=== PATIENT | female | born 1940 | race Caucasian/White ===

== ENCOUNTER 2016-11-30 18:11 | Emergency (ER) | payer MEDICARE ==
[~2016-11-30] VITALS: Ht 162.6 cm; Wt 79.0 kg
[~2016-11-30 18:11] MED LIST: ASPI325T PO; CALC-137 PO; CARV3.125 PO; CLOP75 PO; CYCL5TAB PO; ERYT250T13 PO; FOLI1 PO; FURO1TAB93 PO; LANTUS2P SC; LANTUSP SQ; LORA0.5T PO; METH2.5 PO; NITR.4; NOVOLOGP2; PROM25SU8 PO; TRAM50TA PO; VITA100032 PO
[2016-11-30 18:21] VITALS: BP 131/78; PULSE 94; RESP 17; TEMP 98.1; O2SAT 99
[2016-11-30] MEDS ORDERED: METH2.5T PO (19:17)
[2016-11-30] MEDS ORDERED: CALC1TAB87 PO (19:17)
[2016-11-30] MEDS ORDERED: ASPI325T PO (19:17)
[2016-11-30] MEDS ORDERED: NITR0.1D T-DERMAL (19:17)
[2016-11-30] MEDS ORDERED: LORA-373 PO (19:17)
[2016-11-30] MEDS ORDERED: ERYT250T13 PO (19:17)
[2016-11-30] MEDS ORDERED: LANTUS2P SQ (19:17)
[2016-11-30] MEDS ORDERED: FOLI1TAB4 PO (19:17)
[2016-11-30] MEDS ORDERED: NOVOLOGP2 SQ (19:17)
[2016-11-30] MEDS ORDERED: CLOP75TA PO (19:17)
[2016-11-30] MEDS ORDERED: CARV3.125 PO (19:17)
[2016-11-30] MEDS ORDERED: FURO40TA PO (19:17)
--- NOTE | 2016-11-30 19:43 | RADHPO ---
EXAM DATE/TIME: 11/30/2016 18:42 [facility] COMPARISON: No previous studies available for comparison. INDICATIONS : Right hip pain after fall. MEDICAL HISTORY : Rheumatoid arthritis. Osteoporosis. Hypercholesterolemia. HTN, CHF, COPD, Asthma, Sleep apnea, Ga stroparesis, Diverticulitis, Hiatal hernia, GERD, Rectocele, Fibromyalgia, Spinal stenosis, Diabetes SURGICAL HISTORY : Tonsillectomy. Coronary artery stent. Appendectomy. Cholecystectomy, Hysterectomy, Right hip surgery ENCOUNTER: Initial ACUITY: 1 day PAIN SCORE: 7/10 LOCATION: Right pelvis FINDINGS: Examination of the right hip was performed with AP Pelvis. There is a remote right hip fracture with healing. No acute fracture identified. 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 Osteopenia. CONCLUSION: 1. No acute bony abnormalities. Remote healed right hip fracture. Arnav Andrew MD on November 30, 2016 at 19:39 Board Certified Radiologist. This report was verified electronically.
--- NOTE | 2016-11-30 19:46 | RADHPO ---
EXAM DATE/TIME: 11/30/2016 18:53 [facility] COMPARISON: No previous studies available for comparison. INDICATIONS : Right medial knee pain after fall. MEDICAL HISTORY : Rheumatoid arthritis. Hypercholesterolemia. Osteoporosis. HTN, CHF, COPD, Asthma, Sleep apnea, Ga stroparesis, Diverticulitis, Hiatal hernia, GERD, Rectocelle, Fibromyalgia, Spinal stenosis, Diabetes SURGICAL HISTORY : Tonsillectomy. Coronary artery stent. Appendectomy. Cholecystectomy, Hysterectomy, Right hip surgery ENCOUNTER: Initial ACUITY: 1 day PAIN SCORE: 7/10 LOCATION: Right medial knee FINDINGS: Four view examination of the right knee demonstrates no evidence of fracture or dislocation. Bony mi neralization is decreased. The articular surfaces are intact. The suprapatellar soft tissues have a normal configuration. CONCLUSION: 1. Mild osteoarthritis of the right knee. No acute bony abnormalities. Arnav Andrew MD on November 30, 2016 at 19:42 Board Certified Radiologist. This report was verified electronically.
--- NOTE | 2016-11-30 20:38 | PD ---
HPI Chief Complaint: Fall Time Seen by Provider: 18:24 Travel History International Travel<30 days: No Contact w/Intl Traveler<30days: No Traveled to known affect area: No History of Present Illness HPI Patient is an 76-year-old female who had a trip and fall at home over a dog gate. Patient states she was stepping over a dog gate tripped on it and fell landing on her right side. Patient states she has a complex history of surgery of her right hip wants to make sure it's checked out. Patient did receive 8 mg of morphine IV prior to arrival. Per EMS she did have some shortening of the right lower extremity. Patient denies any head neck back chest abdomen or pelvis trauma or pain. Patient states her left it up her left lower extremity as well as right upper extremity are nontender. She complains of pain in her right hip as well as her right knee which are fairly mild in nature. She has not tried to ambulate since the fall. PFSH Past Medical History Arthritis: Yes (RA) Asthma: Yes Autoimmune Disease: Yes (fibromyalgia) Blood Disorders: No Anxiety: Yes Depression: Yes Heart Rhythm Problems: No Cancer: No Cardiac Catheterization: Yes (Multiple Angioplasty last time X 6 stints-LAST CATH June) Cardiovascular Problems: Yes (STENTS, LOOP) High Cholesterol: Yes Chemotherapy: No Chest Pain: Yes Congestive Heart Failure: Yes COPD: Yes Cerebrovascular Accident: Yes Diabetes: Yes Patient Takes Glucophage: Yes Diminished Hearing: Yes ([place]) Diverticulitis: Yes Endocrine: No Fibromyalgia: Yes Gastrointestinal Disorders: Yes (GASTROPARESIS) GERD: Yes Glaucoma: No Genitourinary: No Headaches: Yes Hepatitis: No Hiatal Hernia: Yes Hypertension: Yes Immune Disorder: Yes (FIBROMALGIA\) Kidney Stones: No Musculoskeletal: Yes (osteoporosis,fibromyalgia,spinal stenosis) Neurologic: Yes (hemangioma, migraines) Psychiatric: No Reproductive: Yes Respiratory: Yes Myocardial Infarction: No Radiation Therapy: No Renal Failure: No Seizures: No Sickle Cell Disease: No Sleep Apnea: Yes Thyroid Disease: No Ulcer: No Tetanus Vaccination: > 5 Years Influenza Vaccination: Yes PNEUMOCCOCAL Vaccine (Year): 2007 Menopausal: Yes Past Surgical History Abdominal Surgery: Yes AICD: No Appendectomy: Yes Body Medical Devices: RIGHT SHOULDER SURGERY, NO JOINT REPLACEMENT. HIP REPLACEMENT REMOVED. Cardiac Surgery: Yes (CARDIAC CATH WITH STENTS) Cholecystectomy: Yes Coronary Artery Bypass Graft: No Coronary Stent: Yes (X2) Endocrine Surgery: No Genitourinary Surgery: Yes Gynecologic Surgery: Yes (HYSTERECTOMY) Hysterectomy: Yes Joint Replacement: Yes (RIGHT HIP/RIGHT KNEE) Neurologic Surgery: No Pacemaker: No Tonsillectomy: Yes Other Surgery: Yes (TONSILLECTOMY, APPENDECTOMY, HYSTERECTOMY, ROTATOR CUFF, GALLBLADDER, L HIP) Social History Alcohol Use: No Tobacco Use: No (QUIT 1989) Substance Use: No Allergies-Medications (Allergen,Severity, Reaction): Coded Allergies: Atarax (Verified Allergy, Severe, THROAT SWELLING, 11/30/16) Bactrim (Verified Allergy, Severe, RASH (SULFA), 11/30/16) Codeine (Verified Allergy, Severe, VOMITING, 11/30/16) Flagyl (Verified Allergy, Severe, NAUSEA/VOMITING, 11/30/16) Keflex (Verified Allergy, Severe, RASH, 11/30/16) Lexapro (Verified Allergy, Severe, 11/30/16) Lyrica (Verified Allergy, Severe, CARDIAC ARRYTHMIAS, 11/30/16) Penicillin (Verified Allergy, Severe, RASH, 11/30/16) Sulfa (Verified Allergy, Severe, RASH, 11/30/16) Tetanus Toxoid (Verified Allergy, Severe, Rash, 11/30/16) Iodide Tincture (Verified Adverse Reaction, Mild, Headache, 11/30/16) Reglan (Verified Adverse Reaction, Mild, Headache, 11/30/16) VOMITING Uncoded Allergies: SURGICAL STEEL (Allergy, Severe, 08/02/06) METALS (Allergy, Unknown, Swelling, 12/04/04) Reported Meds & Prescriptions Reported Meds & Active Scripts Active Ultram (Tramadol HCl) 50 Mg Tab 50 Mg PO Q6H PRN Reported Nitro-Dur Patch 24 HR (Nitroglycerin) 0.1 Mg/Hr Patch 0.1 Mg T-DERMAL DAILY Methotrexate 2.5 Mg Tab 150 Mg PO Q7D Lorazepam 0.5 Mg Tab 0.5 Mg PO HS PRN Lantus Inj (Insulin Glargine) 1,000 Unit/10 Ml Vial 50 Units SQ HS Novolog Inj (Insulin Aspart) 1,000 Unit/10 Ml Vial 0 SQ DIRECTED Sliding Scale as directed. Furosemide 40 Mg Tab 40 Mg PO BID Folate (Folic Acid) 1 Mg Tab 1 Mg PO DAILY Erythromycin Base 250 Mg Tab 250 Mg PO TIDAC PRN Clopidogrel (Clopidogrel Bisulfate) 75 Mg Tab 75 Mg PO HS Coreg (Carvedilol) 3.125 Mg Tab 3.125 Mg PO BID Calcium 600 with Vitamin D (Calcium Carbonate-Cholecalciferol) 600-400 mg-Unit Tab 1 Tab PO DAILY Aspirin 325 Mg Tab 325 Mg PO DAILY Review of Systems Except as stated in HPI: all other systems reviewed are Neg Physical Exam Narrative GENERAL: Well-developed well-nourished no apparent distress. SKIN: Warm and dry. HEAD: Normocephalic. EYES: No scleral icterus. No injection or drainage. NECK: Supple, trachea midline. No JVD or lymphadenopathy. CARDIOVASCULAR: Regular rate and rhythm without murmurs, gallops, or rubs. RESPIRATORY: Breath sounds equal bilaterally. No accessory muscle use. GASTROINTESTINAL: Abdomen soft, non-tender, nondistended. MUSCULOSKELETAL: No cyanosis, or edema. Upper extremities are atraumatic, no tenderness of her CT or L-spine. Pelvis is stable. Left hip normal left knee normal, left ankle normal. The right extremity is somewhat shorter than the left at the level of the hip. No obvious deformity or dislocation of the right hip she has full nontender range of motion of the right hip, no obvious swelling dislocation laxity limited range of motion of the right knee. Right ankle normal right foot normal. On her and sensory are intact distally in all 4 extremities. BACK: Nontender without obvious deformity. No CVA tenderness. Data Data Last Documented VS Vital Signs Date Time Temp Pulse Resp B/P Pulse Ox O2 Delivery O2 Flow Rate FiO2 11/30/16 20:51 88 16 128/74 99 11/30/16 18:21 98.1 Room Air Orders Hip, Uni(Ap&Lat) W Ap Pelvis (11/30/16 ) Knee, Complete (4vws) (11/30/16 ) [facility] Medical Decision Making Medical Screen Exam Complete: Yes Emergency Medical Condition: Yes Differential Diagnosis Fracture, contusion, strain, sprain. Narrative Course Patient is 76 year old female presents with right hip pain and right knee pain after t/f. Patient has history of multiple procedures on right hip. SHe is RLE shorter than LLE at baseline. Xray's negative. She ambulated in ED. Stable for discharge. Discussed fall prevention. Diagnosis Primary Impression: Contusion, hip Qualified Code: S70.01XA - Contusion of right hip, initial encounter Med/Other Pt SpecificInfo: Prescription(s) given Scripts Tramadol (Ultram)50 Mg Tab50 Mg PO Q6H PRN (PAIN) #12 TAB Ref 0 Prov:Thaddeus Grey MD 11/30/16 Disposition: 01 DISCHARGE HOME Condition: Stable Thaddeus Grey MD Nov 30, 2016 20:38
[2016-11-30] MEDS ORDERED: ULTR50TA5 PO (20:39)
[2016-11-30 20:51] VITALS: BP 128/74
[2017-01-09] MEDS ORDERED: LEVO.05 PO (09:11)
== END 2016-11-30 20:50 | disposition home or self-care (01) ==
LOC: PHEFT 18:11
DX: S70.01XA Contusion of right hip, initial encounter (principal); M06.9 Rheumatoid arthritis, unspecified; M79.7 Fibromyalgia; E78.00 Pure hypercholesterolemia, unspecified; I50.9 Heart failure, unspecified; J44.9 Chronic obstructive pulmonary disease, unspecified; E11.9 Type 2 diabetes mellitus without complications; Z86.73 Personal history of transient ischemic attack (TIA), and cerebral infarction without residual deficits; K21.9 Gastro-esophageal reflux disease without esophagitis; I10 Essential (primary) hypertension; M81.0 Age-related osteoporosis without current pathological fracture; W18.09XA Striking against other object with subsequent fall, initial encounter; Y99.8 Other external cause status
CPT/HCPCS: 73502; 73564; 99284

== ENCOUNTER → 2017-01-09 | Outpatient (CLI) | payer MEDICARE ==
[~2017-01-09] VITALS: Ht 162.6 cm; Wt 68.0 kg
[~2017-01-09] MED LIST changes: +BENA25TA3 PO; +BENZ1CAP8 PO; -CALC-137 PO; +CALC1TAB87 PO; +CIPR-9 PO; -CLOP75 PO; +CLOP75TA PO; +CYAN1TAB24 IJ; -CYCL5TAB PO; -FOLI1 PO; +FOLI1TAB4 PO; +FOLI5CAP PO; +FURO1TAB60 PO; -FURO1TAB93 PO; +FURO40TA PO; +HYDR-3533 PO; +INSU1INJ14 SQ; +INSULIN HUMAN REGULAR 1,000 UNITS/10 ML VIAL SQ PRN; +LACTATED RINGER'S 1000 ML IV SCH; -LANTUS2P SC; +LANTUS2P SQ; -LANTUSP SQ; +LEVO.05 PO; +LORA-373 PO; -LORA0.5T PO; +MACR100C2 PO; -METH2.5 PO; +METH2.5T PO; +METOPROLOL TARTRATE 25 MG TAB PO PRN; -NITR.4; +NITR0.1D T-DERMAL; +NITR100C4 PO; +NOVOINJ3 SQ; -NOVOLOGP2; +NOVOLOGP2 SQ; +ONABOTULINUMTOXINA INJ 100 UNITS/VIAL SCH; -PROM25SU8 PO; +PROM25TA5 PO; +PROPOFOL 200 MG/20 ML AMP IV ONE; +ROSU40 PO; +SODIUM CHLORID 0.9% 500 ML IV SCH; -TRAM50TA PO; +ULTR50TA5 PO; +VENTAER INH; -VITA100032 PO; +ZOFR4TAB3 SL
[2017-01-09 09:05] VITALS: BP 149/75; PULSE 85; RESP 18; TEMP 97.9; O2SAT 100
[2017-01-09 12:19] VITALS: BP 139/69; PULSE 74; RESP 16; TEMP 98.1; O2SAT 96
--- NOTE | 2017-01-09 22:43 | EKG ---
Date Performed: 01/09/2017 Time Performed: 08:33:31 PTAGE: 76 years EKG: Sinus rhythm RIGHT BUNDLE BRANCH BLOCK POSSIBLE ANTERIOR MYOCARDIAL INFARCTION , OF INDETERMINATE AGE ABNORMAL EC G PREVIOUS TRACING : 07/09/2014 20.53 DOCTOR: Klaus Silvestre Interpretating Date/Time 01/09/2017 22:41:30
== END ==
LOC: HEND 08:01
PROVIDERS: ATTEND Internal Medicine Gastroenterology
DX: K22.2 Esophageal obstruction (principal); K44.9 Diaphragmatic hernia without obstruction or gangrene; K29.50 Unspecified chronic gastritis without bleeding; D12.3 Benign neoplasm of transverse colon; D12.4 Benign neoplasm of descending colon; K57.32 Diverticulitis of large intestine without perforation or abscess without bleeding; K64.4 Residual hemorrhoidal skin tags; K64.8 Other hemorrhoids; R11.0 Nausea; R19.7 Diarrhea, unspecified; I13.0 Hypertensive heart and chronic kidney disease with heart failure and stage 1 through stage 4 chronic kidney disease, or unspecified chronic kidney disease; N18.2 Chronic kidney disease, stage 2 (mild); J45.909 Unspecified asthma, uncomplicated; R10.12 Left upper quadrant pain
CPT/HCPCS: 43239; 43248; 45380; 88305; 88312; 93005; 99156; 99157; C1769; J3010; J7120

== ENCOUNTER 2017-02-13 12:45 | Emergency (ER) | payer MEDICARE ==
[~2017-02-13] VITALS: Ht 162.6 cm; Wt 70.1 kg
[~2017-02-13 12:45] MED LIST changes: -BENA25TA3 PO; -BENZ1CAP8 PO; -CARV3.125 PO; -CIPR-9 PO; -CYAN1TAB24 IJ; -ERYT250T13 PO; -FOLI1TAB4 PO; -FOLI5CAP PO; -FURO1TAB60 PO; -HYDR-3533 PO; -INSU1INJ14 SQ; -INSULIN HUMAN REGULAR 1,000 UNITS/10 ML VIAL SQ PRN; -LACTATED RINGER'S 1000 ML IV SCH; -MACR100C2 PO; -METH2.5T PO; -METOPROLOL TARTRATE 25 MG TAB PO PRN; -NITR100C4 PO; -NOVOINJ3 SQ; -ONABOTULINUMTOXINA INJ 100 UNITS/VIAL SCH; -PROM25TA5 PO; -PROPOFOL 200 MG/20 ML AMP IV ONE; -ROSU40 PO; -SODIUM CHLORID 0.9% 500 ML IV SCH; -VENTAER INH; -ZOFR4TAB3 SL
[2017-02-13 12:52] VITALS: BP 149/73; PULSE 73; RESP 16; TEMP 97.7; O2SAT 97
[2017-02-13] MEDS ORDERED: SODIUM CHLORIDE 0.9% FLUSH 10 ML FLUSH IVF PRN (13:15)
--- NOTE | 2017-02-13 13:18 | PD ---
HPI Chief Complaint: Pain: Acute or Chronic Time Seen by Provider: 13:01 Travel History International Travel<30 days: No Contact w/Intl Traveler<30days: No Traveled to known affect area: No History of Present Illness HPI 76-year-old female presents with left leg pain and swelling that feels similar to when she had a blood clot in the 90s. She states she had 2 separate episodes with the first one leading to a blood clot in her lungs. She states she was on Coumadin with the first one but doesn't recall what she was on the second episode. She states that additionally she went to a [facility] this week and was prescribed Tessalon Perles for a dry cough and chest pressure but she says she doesn't feel like she's having a cold. She states they did a chest x- ray and it was okay. She states that she's having no other concurrent complaints. Quality is pressure. Severity is chest. 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 She had a stress test in September when she was at [facility] that she thinks was okay. She states she had a cardiac catheterization around that time she thinks that her blood vessels were on the edge of her needing a stent but given it was not fully blocked they did not put a stent. She states that she does have history of multiple stents. PFSH Past Medical History Hx Anticoagulant Therapy: Yes (PLAVIX AND 325MG. ASA) Arthritis: Yes (RA) Asthma: Yes Autoimmune Disease: Yes (fibromyalgia) Blood Disorders: No Anxiety: Yes Depression: Yes Heart Rhythm Problems: No Cancer: No Cardiac Catheterization: Yes (Multiple Angioplasty last time X 6 stints-LAST CATH June) Cardiovascular Problems: Yes (STENTS) High Cholesterol: Yes Chemotherapy: No Chest Pain: Yes Congestive Heart Failure: Yes COPD: Yes Cerebrovascular Accident: Yes (CVA) Diabetes: Yes Patient Takes Glucophage: No Diminished Hearing: Yes ([place]) Diverticulitis: Yes Endocrine: No Fibromyalgia: Yes Gastrointestinal Disorders: Yes (GASTROPARESIS) GERD: Yes Glaucoma: No Genitourinary: No Headaches: Yes Hepatitis: No Hiatal Hernia: Yes Hypertension: Yes Immune Disorder: Yes (FIBROMALGIA\RA) Kidney Stones: No Musculoskeletal: Yes (osteoporosis,fibromyalgia,spinal stenosis) Neurologic: Yes (hemangioma, migraines) Psychiatric: No Reproductive: Yes Respiratory: Yes Myocardial Infarction: No Radiation Therapy: No Renal Failure: No Seizures: No Sickle Cell Disease: No Sleep Apnea: Yes Thyroid Disease: Yes Ulcer: No PNEUMOCCOCAL Vaccine (Year): 2007 ?: Not Menopausal: Yes Past Surgical History Abdominal Surgery: Yes AICD: No Appendectomy: Yes Body Medical Devices: RIGHT SHOULDER SURGERY, NO JOINT REPLACEMENT. HIP REPLACEMENT REMOVED. Cardiac Surgery: Yes (CARDIAC CATH WITH STENTS) Cholecystectomy: Yes Coronary Artery Bypass Graft: No Coronary Stent: Yes (X2) Endocrine Surgery: No Genitourinary Surgery: Yes Gynecologic Surgery: Yes (HYSTERECTOMY) Hysterectomy: Yes Joint Replacement: Yes (RIGHT HIP/RIGHT KNEE) Neurologic Surgery: No Pacemaker: No Tonsillectomy: Yes Other Surgery: Yes (TONSILLECTOMY, APPENDECTOMY, HYSTERECTOMY, ROTATOR CUFF, GALLBLADDER, L HIP) Social History Alcohol Use: No Tobacco Use: No (QUIT 1989) Substance Use: No Allergies-Medications (Allergen,Severity, Reaction): Coded Allergies: Atarax (Verified Allergy, Severe, THROAT SWELLING, 02/13/17) Bactrim (Verified Allergy, Severe, RASH (SULFA), 02/13/17) Codeine (Verified Allergy, Severe, VOMITING, 02/13/17) Flagyl (Verified Allergy, Severe, NAUSEA/VOMITING, 02/13/17) Keflex (Verified Allergy, Severe, RASH, 02/13/17) Lexapro (Verified Allergy, Severe, 02/13/17) Lyrica (Verified Allergy, Severe, CARDIAC ARRYTHMIAS, 02/13/17) Penicillin (Verified Allergy, Severe, RASH, 02/13/17) Sulfa (Verified Allergy, Severe, RASH, 02/13/17) Tetanus Toxoid (Verified Allergy, Severe, Rash, 02/13/17) Iodide Tincture (Verified Adverse Reaction, Mild, Headache, 02/13/17) Reglan (Verified Adverse Reaction, Mild, Headache, 02/13/17) VOMITING Uncoded Allergies: SURGICAL STEEL (Allergy, Severe, 08/02/06) METALS (Allergy, Unknown, Swelling, 12/04/04) Reported Meds & Prescriptions Reported Meds & Active Scripts Active Ultram (Tramadol HCl) 50 Mg Tab 50 Mg PO Q6H PRN Reported Synthroid (Levothyroxine Sodium) 50 Mcg Tab 50 Mcg PO DAILY Nitro-Dur Patch 24 HR (Nitroglycerin) 0.1 Mg/Hr Patch 0.1 Mg T-DERMAL DAILY Lorazepam 0.5 Mg Tab 0.5 Mg PO HS PRN Lantus Inj (Insulin Glargine) 1,000 Unit/10 Ml Vial 50 Units SQ HS Novolog Inj (Insulin Aspart) 1,000 Unit/10 Ml Vial 0 SQ DIRECTED Sliding Scale as directed. Furosemide 40 Mg Tab 40 Mg PO BID Clopidogrel (Clopidogrel Bisulfate) 75 Mg Tab 75 Mg PO HS Calcium 600 with Vitamin D (Calcium Carbonate-Cholecalciferol) 600-400 mg-Unit Tab 1 Tab PO DAILY Aspirin 325 Mg Tab 325 Mg PO DAILY Review of Systems Except as stated in HPI: all other systems reviewed are Neg Physical Exam Narrative GENERAL: Well-nourished, well-developed patient. SKIN: Warm and dry. HEAD: Normocephalic and atraumatic. EYES: No injection or drainage. ENT: No nasal drainage noted. NECK: Supple, trachea midline. CARDIOVASCULAR: Regular rate and rhythm RESPIRATORY: Breath sounds equal bilaterally. No accessory muscle use. GASTROINTESTINAL: Abdomen soft, non-tender, nondistended. EXTREMITIES: Pain with palpation of left calf with mild edema, no pain with other joints , neurovascularly intact, no lacerations over, compartments soft. NEUROLOGICAL: Awake and alert. Motor and sensory grossly within normal limits. Normal speech. Data Data Last Documented VS Vital Signs Date Time Temp Pulse Resp B/P Pulse Ox O2 Delivery O2 Flow Rate FiO2 02/13/17 15:56 67 20 129/62 98 02/13/17 12:52 97.7 Orders Us Leg Venous Doppler (02/13/17 13:02) Electrocardiogram (02/13/17 13:11) B-Type Natriuretic Peptide (02/13/17 13:11) Ckmb (Isoenzyme) Profile (02/13/17 13:11) Complete Blood Count With Diff (02/13/17 13:11) Comprehensive Metabolic Panel (02/13/17 13:11) Magnesium (Mg) (02/13/17 13:11) Prothrombin Time / Inr (Pt) (02/13/17 13:11) Act Partial Throm Time (Ptt) (02/13/17 13:11) Troponin I (02/13/17 13:11) Chest, Single Ap (02/13/17 13:11) Ecg Monitoring (02/13/17 13:11) Bilateral Bp Monitoring (02/13/17 13:11) Iv Access Insert/Monitor (02/13/17 13:11) Oximetry (02/13/17 13:11) Sodium Chloride 0.9% Flush (Ns Flush) (02/13/17 13:15) Ct Pulmonary Angiogram (02/13/17 13:11) Iohexol 350 Inj (Omnipaque 350 Inj) (02/13/17 15:57) Aspirin (Aspirin) (02/13/17 16:30) Labs Laboratory Tests Test 02/13/17 13:15 White Blood Count 6.0 TH/MM3 Red Blood Count 4.09 MIL/MM3 Hemoglobin 12.9 GM/DL Hematocrit 36.7 % Mean Corpuscular Volume 89.8 FL Mean Corpuscular Hemoglobin 31.6 PG Mean Corpuscular Hemoglobin 35.2 % Concent Red Cell Distribution Width 11.4 % Platelet Count 112 TH/MM3 Mean Platelet Volume 10.8 FL Neutrophils (%) (Auto) 60.9 % Lymphocytes (%) (Auto) 30.9 % Monocytes (%) (Auto) 7.1 % Eosinophils (%) (Auto) 0.2 % Basophils (%) (Auto) 0.9 % Neutrophils # (Auto) 3.6 TH/MM3 Lymphocytes # (Auto) 1.9 TH/MM3 Monocytes # (Auto) 0.4 TH/MM3 Eosinophils # (Auto) 0.0 TH/MM3 Basophils # (Auto) 0.1 TH/MM3 CBC Comment DIFF FINAL Differential Comment Prothrombin Time 10.6 SEC Prothromb Time International 1.0 RATIO Ratio Activated Partial 24.7 SEC Thromboplast Time Sodium Level 141 MEQ/L Potassium Level 4.3 MEQ/L Chloride Level 105 MEQ/L Carbon Dioxide Level 28.8 MEQ/L Anion Gap 7 MEQ/L Blood Urea Nitrogen 18 MG/DL Creatinine 0.67 MG/DL Estimat Glomerular Filtration 86 ML/MIN Rate Random Glucose 329 MG/DL Calcium Level 8.7 MG/DL Magnesium Level 2.1 MG/DL Total Bilirubin 0.5 MG/DL Aspartate Amino Transf 11 U/L (AST/SGOT) Alanine Aminotransferase 15 U/L (ALT/SGPT) Alkaline Phosphatase 70 U/L Total Creatine Kinase 54 U/L Troponin I LESS THAN 0.02 NG/ML B-Type Natriuretic Peptide 41 PG/ML Total Protein 6.3 GM/DL Albumin 3.1 GM/DL MDM Medical Decision Making Medical Screen Exam Complete: Yes Emergency Medical Condition: Yes Medical Record Reviewed: Yes (pmh confirmed) Interpretation(s) CBC & BMP Diagram 02/13/17 13:15 Last 24 hours Impressions Chest X-Ray 02/13/17 1311 Signed Impressions: Service Date/Time: Monday, February 13, 2017 13:35 - CONCLUSION: 1. Minimal left basilar discoid atelectasis. Thaddeus Martin MD CT Angiography 02/13/17 1311 Signed Impressions: Service Date/Time: Monday, February 13, 2017 15:40 - CONCLUSION: 1. No evidence of pulmonary embolism. 2. Cardiomegaly and coronary artery calcifications. 3. Small hiatal hernia. Thaddeus Martin MD Lower Extremity Ultrasound 02/13/17 1302 Signed Impressions: Service Date/Time: Monday, February 13, 2017 14:14 - CONCLUSION: 1. No DVT identified. Ernesto Thornton MD Differential Diagnosis PE, DVT, pneumonia, atypical cardiac Narrative Course Will check blood work, chest x-ray, EKG, CT pulmonary and monitor ed workup no acute, advised operations architect observation, states at 1630 needs to leave ama, nurse at bedside, AMA: The risks of leaving against medical advice without further evaluation treatment were discussed with the patient. These risks include cardiac dysfunction, cardiac dysrhythmia, possible heart attack, possible stroke or . The patient indicated understanding of these risks and appeared to have the capacity to make this decision. Diagnosis Primary Impression: Chest pain Qualified Code: R07.9 - Chest pain, unspecified type Additional Impression: Leg pain Qualified Code: M79.605 - Pain of left lower extremity Patient Instructions: General Instructions Disposition: 07 AGAINST MEDICAL ADVICE Condition: Stable Shira Narvaez MD Feb 13, 2017 13:18
[2017-02-13 13:24] VITALS: O2SAT 96
[2017-02-13 13:27] VITALS: BP 132/69; PULSE 69; RESP 20; O2SAT 98
[2017-02-13 13:27] LABS: AUTOMATED NEUTROPHIL # 3.6 TH/MM3 (1.8-7.7); BASOPHIL # 0.1 TH/MM3 (0-0.2); BASOPHIL % 0.9 % (0.0-2.0); EOSINOPHIL % 0.2 % (0.0-4.0); HEMATOCRIT 36.7 % (35.0-46.0); HEMO FLAGS DIFF FINAL; LYMPH % 30.9 % (9.0-44.0); LYMPHOCYTE # 1.9 TH/MM3 (1.0-4.8); MEAN CELL VOLUME 89.8 FL (80.0-100.0); MEAN CORPUSCULAR HEMOGLOBIN 31.6 PG (27.0-34.0); MEAN CORPUSCULAR HGB CONC 35.2 % (32.0-36.0); MONO % 7.1 % (0.0-8.0); NEUT % 60.9 % (16.0-70.0); PLATELET COUNT 112 TH/MM3 (150-450); RED BLOOD COUNT 4.09 MIL/MM3 (4.00-5.30); RED CELL DISTRIBUTION WIDTH 11.4 % (11.6-17.2)
[2017-02-13 13:35] LABS: CHLORIDE 105 MEQ/L (98-107); POTASSIUM 4.3 MEQ/L (3.5-5.1); SODIUM (NA) 141 MEQ/L (136-145)
[2017-02-13 13:39] LABS: ANION GAP 7 MEQ/L (5-15); APTT (PATIENT) 24.7 SEC (24.3-30.1); BICARBONATE 28.8 MEQ/L (21.0-32.0); BLOOD UREA NITROGEN 18 MG/DL (7-18); MAGNESIUM 2.1 MG/DL (1.5-2.5); PROTHROMBIN TIME - PATIENT 10.6 SEC (9.8-11.6)
[2017-02-13 13:42] LABS: ALT (GPT) 15 U/L (10-53); AST (GOT) 11 U/L (15-37); GLOMERULAR FILTRATION RATE 86 ML/MIN (>89)
[2017-02-13 13:43] LABS: TOTAL BILIRUBIN ADULT 0.5 MG/DL (0.2-1.0)
[2017-02-13 13:45] LABS: ALKALINE PHOSPHATASE 70 U/L (45-117)
--- NOTE | 2017-02-13 14:05 | RADHPO ---
EXAM DATE/TIME: 02/13/2017 13:35 [facility] COMPARISON: CHEST SINGLE AP, January 06, 2013, 12:39. INDICATIONS: Short of breath with a cough. MEDICAL HISTORY: Cardiovascular disease. SURGICAL HISTORY: Coronary artery stent. Loop recorder. ENCOUNTER: Initial ACUITY: 3 weeks PAIN SCORE: 7/10 LOCATION: Left chest FINDINGS: Minimal discoid atelectasis is noted within the left lung base. The heart and mediastinal structures are normal. The pulmonary vascular pattern is also normal. The right lung is clear. CONCLUSION: 1. Minimal left basilar discoid atelectasis. Thaddeus Martin MD on February 13, 2017 at 13:54 Board Certified Radiologist. This report was verified electronically.
[2017-02-13 14:12] LABS: CREATINE KINASE 54 U/L (26-192)
[2017-02-13 14:55] VITALS: BP 120/60; PULSE 67; RESP 20; O2SAT 96
--- NOTE | 2017-02-13 15:09 | RADHPO ---
EXAM DATE/TIME: 02/13/2017 14:14 [facility] COMPARISON: US LEG LEFT VENOUS DOPPLER, March 08, 2014, 13:00. INDICATIONS : Left leg calf pain since fallDecember 2016. MEDICAL HISTORY : Congestive heart failure. Rheumatoid arthritis. Diabetic. Gastroporesis. Fibromyalgia. SURGICAL HISTORY : Cardiac stent. Cardiac loop. ENCOUNTER: Initial ACUITY: 2 months PAIN SCORE: 4/10 LOCATION: Left leg. TECHNIQUE: Venous ultrasound of the leg was performed from the inguinal ligament to the proximal calf. Real-devin e, color Doppler and spectral tracing, compression and augmentation techniques were used. FINDINGS: There is normal compressibility of the deep venous system from the inguinal region to the proximal ca lf. No echogenic clot is seen in the lumen of the common femoral, femoral, popliteal, and posterior tibial veins. There is a normal response of the venous system to proximal and distal augmentation an d respiration. CONCLUSION: 1. No DVT identified. Ernesto Thornton MD on February 13, 2017 at 15:08 Board Certified Radiologist. This report was verified electronically.
[2017-02-13 15:56] VITALS: BP 129/62; PULSE 67; RESP 20; O2SAT 98
[2017-02-13] MEDS ORDERED: IOHEXOL 350 MG/ML 10 ML VIAL (for RAD DIAG) IV ONE (15:57)
--- NOTE | 2017-02-13 16:11 | RADHPO ---
EXAM DATE/TIME: 02/13/2017 15:40 [facility] COMPARISON: No previous studies available for comparison. INDICATIONS : Chest pain, cough, and shortness of breath with leg pain. IV CONTRAST: 65 cc Omnipaque 350 (iohexol) IV RADIATION DOSE: 18.77 CTDIvol (mGy) MEDICAL HISTORY : Congestive heart failure. Chronic obstructive pulmonary disease. Diabetes mellitus type 2.Hypertensio n. DVT. PE. SURGICAL HISTORY : Stents. ENCOUNTER: Initial ACUITY: 2 weeks PAIN SCALE: 4/10 LOCATION: chest , sternal. TECHNIQUE: Volumetric scanning of the chest was performed using a pulmonary embolism protocol MIP images were re constructed. Using automated exposure control and adjustment of the mA and/or kV according to patien t size, radiation dose was kept as low as reasonably achievable to obtain optimal diagnostic quality images. FINDINGS: PULMONARY ARTERIES: No filling defects are seen in the pulmonary arteries through the segmental level. LUNGS: There is no consolidation or pneumothorax . No concerning pulmonary nodule is visualized. PLEURAE: There is no pleural thickening or pleural effusion. MEDIASTINUM: There is good visualization of the great vessels of the middle mediastinum. No evidence of mediastin al or hilar adenopathy/mass. Cardiomegaly and coronary artery calcifications are noted. MUSCULOSKELETAL: Within normal limits for patient age. MISCELLANEOUS: The visualized upper abdominal organs demonstrate no acute abnormality. Small hiatal hernia is noted. CONCLUSION: 1. No evidence of pulmonary embolism. 2. Cardiomegaly and coronary artery calcifications. 3. Small hiatal hernia. Thaddeus Martin MD on February 13, 2017 at 16:06 Board Certified Radiologist. This report was verified electronically.
[2017-02-13] MEDS ORDERED: ASPIRIN 325 MG TAB PO ONE (16:30)
--- NOTE | 2017-02-14 14:33 | EKG ---
Date Performed: 02/13/2017 Time Performed: 13:35:40 PTAGE: 76 years EKG: Sinus rhythm Right bundle branch block Inferior T wave changes are nonspecific Low QRS voltages in precordial gail ds Abnormal ECG Compared to prior tracing no significant change PREVIOUS TRACING : 01/09/2017 08.33 DOCTOR: Tree Kennedy Interpretating Date/Time 02/14/2017 14:33:00
== END 2017-02-13 16:46 | disposition left against medical advice (07) ==
LOC: PHED 12:45
DX: R07.9 Chest pain, unspecified (principal); M79.605 Pain in left leg; I45.10 Unspecified right bundle-branch block; J45.909 Unspecified asthma, uncomplicated; E78.00 Pure hypercholesterolemia, unspecified; I50.9 Heart failure, unspecified; J44.9 Chronic obstructive pulmonary disease, unspecified; E11.9 Type 2 diabetes mellitus without complications; M79.7 Fibromyalgia; K21.9 Gastro-esophageal reflux disease without esophagitis; I10 Essential (primary) hypertension; E07.9 Disorder of thyroid, unspecified; G47.30 Sleep apnea, unspecified; K31.84 Gastroparesis; Z95.5 Presence of coronary angioplasty implant and graft; Z79.01 Long term (current) use of anticoagulants; Z86.718 Personal history of other venous thrombosis and embolism; Z87.891 Personal history of nicotine dependence
CPT/HCPCS: 71010; 71275; 80053; 82550; 83735; 83880; 84484; 85025; 85610; 85730; 93005; 93971; 99284; Q9967

== ENCOUNTER 2017-03-05 23:28 | Emergency (ER) | payer MEDICARE ==
[~2017-03-05] VITALS: Ht 157.5 cm; Wt 68.7 kg
[2017-03-05 23:34] VITALS: BP 119/72; PULSE 90; RESP 18; TEMP 97.3; O2SAT 96
[2017-03-06 00:05] VITALS: BP 119/72; PULSE 90; RESP 18; TEMP 97.3; O2SAT 96
[2017-03-06 00:08] VITALS: BP 121/63; PULSE 87; RESP 18; O2SAT 97
[2017-03-06] MEDS ORDERED: SODIUM CHLOR 0.9% 1000 ML INJ 1,000 ML IV SCH ×2 (00:24→01:30)
[2017-03-06] MEDS ORDERED: PROCHLORPERAZINE INJ 10 MG/2 ML VIAL IV PUSH ONE (00:30)
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
[2017-03-06] MEDS ORDERED: ROSU40 PO (00:37)
[2017-03-06] MEDS ORDERED: BENA25TA3 PO (00:37)
[2017-03-06] MEDS ORDERED: BENZ1CAP8 PO (00:38)
[2017-03-06] MEDS ORDERED: INSU1INJ14 SQ (00:38)
[2017-03-06] MEDS ORDERED: FOLI5CAP PO (00:38)
[2017-03-06] MEDS ORDERED: ZOFR4TAB3 SL (00:38)
[2017-03-06] MEDS ORDERED: VENTAER INH (00:38)
[2017-03-06] MEDS ORDERED: CYAN1TAB24 IJ (00:38)
[2017-03-06] MEDS ORDERED: FURO1TAB60 PO (00:38)
[2017-03-06] MEDS ORDERED: HYDROmorphone HCL PF 1 MG/ML VIAL IVP ONE (00:45)
[2017-03-06] MEDS: SODIUM CHLORIDE 0.9% FLUSH 10 ML FLUSH IV FLUSH PRN ×2 (01:04→02:46)
[2017-03-06 01:09] VITALS: BP 135/65; PULSE 87; RESP 18; O2SAT 98
[2017-03-06 01:27] LABS: BLOOD, URINE NEG (NEG); GLUCOSE,URINE 500 mg/dL (NEG); KETONE, URINE 40 mg/dL (NEG); NITRITE,URINE NEG (NEG); PH, URINE 5.5 (5.0-8.5)
[2017-03-06 01:28] LABS: AUTOMATED NEUTROPHIL # 7.3 TH/MM3 (1.8-7.7); BASOPHIL % 0.2 % (0.0-2.0); EOSINOPHIL % 0.3 % (0.0-4.0); HEMATOCRIT 39.3 % (35.0-46.0); HEMO FLAGS DIFF FINAL; LYMPH % 17.9 % (9.0-44.0); LYMPHOCYTE # 1.8 TH/MM3 (1.0-4.8); MEAN CELL VOLUME 90.9 FL (80.0-100.0); MEAN CORPUSCULAR HEMOGLOBIN 30.7 PG (27.0-34.0); MEAN CORPUSCULAR HGB CONC 33.8 % (32.0-36.0); MONO % 6.7 % (0.0-8.0); NEUT % 74.9 % (16.0-70.0); PLATELET COUNT 140 TH/MM3 (150-450); RED BLOOD COUNT 4.33 MIL/MM3 (4.00-5.30); RED CELL DISTRIBUTION WIDTH 12.3 % (11.6-17.2); WHITE BLOOD COUNT 9.8 TH/MM3 (4.0-11.0)
[2017-03-06 01:34] LABS: CHLORIDE 103 MEQ/L (98-107); POTASSIUM 3.8 MEQ/L (3.5-5.1); SODIUM (NA) 141 MEQ/L (136-145)
[2017-03-06 01:38] LABS: ANION GAP 9 MEQ/L (5-15); BACTERIA, URINE MOD /hpf; BICARBONATE 29.1 MEQ/L (21.0-32.0); BLOOD UREA NITROGEN 17 MG/DL (7-18); MUCUS URINE MOD /lpf (OCC); SQUAMOUS EPITHELIAL CELL URINE > 8 /hpf (0-5); URINE COLOR AMBER (YELLW/STRAW)
[2017-03-06 01:41] LABS: ALT (GPT) 36 U/L (10-53); AST (GOT) 24 U/L (15-37); COMMENT (UR) CULTURE INDICATED; CULTURE IF INDICATED CULTURE INDICATED; GLOMERULAR FILTRATION RATE 87 ML/MIN (>89)
[2017-03-06 01:42] LABS: TOTAL BILIRUBIN ADULT 0.6 MG/DL (0.2-1.0)
[2017-03-06 01:44] LABS: ALKALINE PHOSPHATASE 130 U/L (45-117)
[2017-03-06] MEDS ORDERED: PROM25TA5 PO (02:20)
[2017-03-06] MEDS ORDERED: MACR100C2 PO (02:20)
[2017-03-06] MEDS ORDERED: CIPR-9 PO (02:27)
[2017-03-06 02:29] VITALS: BP 123/67; PULSE 91; RESP 16; O2SAT 97
[2017-03-06] MEDS ORDERED: CIPROFLOXACIN 500 MG TAB PO ONE (02:30)
== END 2017-03-06 03:38 | disposition home or self-care (01) ==
LOC: PHED 23:28
DX: R11.0 Nausea (principal); R10.84 Generalized abdominal pain; R82.99 Other abnormal findings in urine; E11.9 Type 2 diabetes mellitus without complications; I10 Essential (primary) hypertension; E07.9 Disorder of thyroid, unspecified; E78.00 Pure hypercholesterolemia, unspecified; Z79.01 Long term (current) use of anticoagulants; Z79.4 Long term (current) use of insulin; Z87.19 Personal history of other diseases of the digestive system; Z86.79 Personal history of other diseases of the circulatory system; Z87.39 Personal history of other diseases of the musculoskeletal system and connective tissue; Z87.09 Personal history of other diseases of the respiratory system; Z86.2 Personal history of diseases of the blood and blood-forming organs and certain disorders involving the immune mechanism; Z87.448 Personal history of other diseases of urinary system; Z86.59 Personal history of other mental and behavioral disorders; Z86.69 Personal history of other diseases of the nervous system and sense organs; Z87.42 Personal history of other diseases of the female genital tract
CPT/HCPCS: 80053; 81001; 83690; 85025; 87086; 96361; 96374; 96375; 99284; J0780; J1170; J7030

== ENCOUNTER 2017-04-05 11:51 | Observation (INO) | payer MEDICARE ==
[2017-04-05] VITALS (9 sets, daily range): BP systolic 126–143; BP diastolic 60–82; PULSE 66–85; RESP 14–18; TEMP 97.5–98.2; O2SAT 95–100
[~2017-04-05 11:51] MED LIST changes: +BENA25TA3 PO; +BENZ1CAP8 PO; +CIPR-9 PO; +CYAN1TAB24 IJ; +FOLI5CAP PO; +FURO1TAB60 PO; +INSU1INJ14 SQ; +PROM25TA5 PO; +ROSU40 PO; +VENTAER INH; +ZOFR4TAB3 SL
[2017-04-05] MEDS ORDERED: NOVOINJ3 SQ (12:13)
--- NOTE | 2017-04-05 12:14 | PD ---
HPI Chief Complaint: Chest Pain Time Seen by Provider: 12:03 Travel History International Travel<30 days: No Contact w/Intl Traveler<30days: No Traveled to known affect area: No History of Present Illness HPI She complains of chest pain. It is been intermittent for the last 2 weeks. Located in the sternal region. It is not exertional. It comes and goes with no alleviating factors. Severity is moderate. She has history of 3 stents. PFSH Past Medical History Hx Anticoagulant Therapy: Yes Arthritis: Yes (RA) Asthma: Yes Autoimmune Disease: Yes Blood Disorders: No Anxiety: Yes Depression: Yes Heart Rhythm Problems: No Cancer: No Cardiac Catheterization: Yes (Multiple Angioplasty last time X 6 stints-LAST CATH June) Cardiovascular Problems: Yes High Cholesterol: Yes Chemotherapy: No Chest Pain: Yes Congestive Heart Failure: Yes COPD: Yes Cerebrovascular Accident: Yes (CVA) Coronary Artery Disease: Yes Diabetes: Yes Patient Takes Glucophage: No Diminished Hearing: Yes ([place]) Diverticulitis: Yes Endocrine: No Fibromyalgia: Yes Gastrointestinal Disorders: Yes (GASTROPARESIS) GERD: Yes Glaucoma: No Genitourinary: No Headaches: Yes Hepatitis: No Hiatal Hernia: Yes Hypertension: Yes Immune Disorder: Yes (FIBROMYALGIA\RA) Kidney Stones: No Musculoskeletal: Yes (osteoporosis,fibromyalgia,spinal stenosis) Neurologic: Yes (hemangioma) Psychiatric: No Reproductive: Yes Respiratory: Yes Migraines: Yes Myocardial Infarction: No Radiation Therapy: No Renal Failure: No Seizures: No Sickle Cell Disease: No Sleep Apnea: Yes Thyroid Disease: Yes Ulcer: No Influenza Vaccination: Yes PNEUMOCCOCAL Vaccine (Year): 2007 ?: Not Menopausal: Yes Past Surgical History Abdominal Surgery: Yes AICD: No Appendectomy: Yes Body Medical Devices: RIGHT SHOULDER SURGERY, NO JOINT REPLACEMENT. HIP REPLACEMENT REMOVED. Cardiac Surgery: Yes (CARDIAC CATH WITH STENTS) Cholecystectomy: Yes Coronary Artery Bypass Graft: No Coronary Stent: Yes (X2) Endocrine Surgery: No Genitourinary Surgery: Yes Gynecologic Surgery: Yes (HYSTERECTOMY) Hysterectomy: Yes Joint Replacement: Yes (RIGHT HIP/RIGHT KNEE) Neurologic Surgery: No Pacemaker: No Tonsillectomy: Yes Other Surgery: Yes (TONSILLECTOMY, APPENDECTOMY, HYSTERECTOMY, ROTATOR CUFF, GALLBLADDER, L HIP) Social History Alcohol Use: No Tobacco Use: No (QUIT 1989) Substance Use: No Allergies-Medications (Allergen,Severity, Reaction): Coded Allergies: Atarax (Verified Allergy, Severe, THROAT SWELLING, 04/05/17) Bactrim (Verified Allergy, Severe, RASH (SULFA), 04/05/17) Codeine (Verified Allergy, Severe, VOMITING, 04/05/17) Flagyl (Verified Allergy, Severe, NAUSEA/VOMITING, 04/05/17) Keflex (Verified Allergy, Severe, RASH, 04/05/17) Lexapro (Verified Allergy, Severe, 04/05/17) Lyrica (Verified Allergy, Severe, CARDIAC ARRYTHMIAS, 04/05/17) Penicillin (Verified Allergy, Severe, RASH, 04/05/17) Sulfa (Verified Allergy, Severe, RASH, 04/05/17) Tetanus Toxoid (Verified Allergy, Severe, Rash, 04/05/17) Iodide Tincture (Verified Adverse Reaction, Mild, Headache, 04/05/17) Reglan (Verified Adverse Reaction, Mild, Headache, 04/05/17) VOMITING Uncoded Allergies: SURGICAL STEEL (Allergy, Severe, 08/02/06) METALS (Allergy, Unknown, Swelling, 12/04/04) Reported Meds & Prescriptions Reported Meds & Active Scripts Active Ultram (Tramadol HCl) 50 Mg Tab 50 Mg PO Q6H PRN Reported Novolog Flexpen Inj (Insulin Aspart) 300 Unit/3 Ml Pen 20 Units SQ TIDAC Tresiba Flextouch Pen Inj (Insulin Degludec Inj) 300 unit/3 ML Pen 60 Units SQ DAILY Folic Acid 5 Mg Cap 1 Mg PO DAILY Ventolin Hfa 18 GM Inh (Albuterol Sulfate) 90 Mcg/Act Aer 2 Puff INH Q4-6H PRN Benzonatate 100 Mg Cap 100 Mg PO TID PRN B12 (Cyanocobalamin) 1,000 Mcg Tab 1,000 Mcg IJ [id number] Benadryl Allergy (Diphenhydramine HCl) 25 Mg Tab 50 Mg PO DAILY PRN Crestor (Rosuvastatin Calcium) 40 Mg Tab 40 Mg PO DAILY Synthroid (Levothyroxine Sodium) 50 Mcg Tab 50 Mcg PO DAILY Nitro-Dur Patch 24 HR (Nitroglycerin) 0.1 Mg/Hr Patch 0.1 Mg T-DERMAL DAILY Lorazepam 0.5 Mg Tab 0.5 Mg PO HS PRN Furosemide 40 Mg Tab 40 Mg PO BID Clopidogrel (Clopidogrel Bisulfate) 75 Mg Tab 75 Mg PO HS Calcium 600 with Vitamin D (Calcium Carbonate-Cholecalciferol) 600-400 mg-Unit Tab 1 Tab PO DAILY Aspirin 325 Mg Tab 325 Mg PO DAILY Review of Systems General / Constitutional: No: Fever Eyes: No: Visual changes HENT: No: Headaches Cardiovascular: Positive: Chest Pain or Discomfort Respiratory: No: Shortness of Breath Gastrointestinal: No: Abdominal Pain Genitourinary: No: Dysuria Musculoskeletal: No: Pain Skin: No Rash Neurologic: No: Weakness Psychiatric: No: Depression Endocrine: No: Polydipsia Hematologic/Lymphatic: No: Easy Bruising Physical Exam Narrative GENERAL: Well-nourished, well-developed patient in no apparent distress. SKIN: Focused skin assessment reveals no rash and nodules. Skin is Warm and dry. HEAD: Atraumatic. Normocephalic. EYES: Pupils equal and round. No scleral icterus. No injection or drainage. ENT: No nasal bleeding or discharge. Mucous membranes pink and moist. NECK: Trachea midline. No JVD. CARDIOVASCULAR: Regular rate and rhythm. No murmur appreciated. RESPIRATORY: No accessory muscle use. Clear to auscultation. Breath sounds equal bilaterally. GASTROINTESTINAL: Abdomen soft, non-tender, nondistended. Hepatic and splenic margins not palpable. MUSCULOSKELETAL: No obvious deformities. No clubbing. No cyanosis. No edema. NEUROLOGICAL: Awake and alert. No obvious cranial nerve deficits. Motor grossly within normal limits. Normal speech. PSYCHIATRIC: Appropriate mood and affect; insight and judgment normal. Data Data Last Documented VS Vital Signs Date Time Temp Pulse Resp B/P Pulse Ox O2 Delivery O2 Flow Rate FiO2 04/05/17 14:23 72 18 134/76 98 Room Air 04/05/17 12:01 97.5 Orders Electrocardiogram (04/05/17 12:11) Basic Metabolic Panel (Bmp) (04/05/17 12:11) Ckmb (Isoenzyme) Profile (04/05/17 12:11) Complete Blood Count With Diff (04/05/17 12:11) Prothrombin Time / Inr (Pt) (04/05/17 12:11) Act Partial Throm Time (Ptt) (04/05/17 12:11) Troponin I (04/05/17 12:11) Chest, Single Ap (04/05/17 12:11) Ecg Monitoring (04/05/17 12:11) Iv Access Insert/Monitor (04/05/17 12:11) Oximetry (04/05/17 12:11) Aspirin (Aspirin) (04/05/17 12:15) Sodium Chloride 0.9% Flush (Ns Flush) (04/05/17 12:15) Nitroglycerin Sl (Nitrostat Sl) (04/05/17 14:15) Nitroglycerin Sl (Nitrostat Sl) (04/05/17 14:15) Admit Order (Ed Use Only) (04/05/17 14:28) Labs Laboratory Tests Test 04/05/17 12:10 White Blood Count 7.6 TH/MM3 Red Blood Count 4.41 MIL/MM3 Hemoglobin 13.4 GM/DL Hematocrit 39.6 % Mean Corpuscular Volume 89.7 FL Mean Corpuscular Hemoglobin 30.3 PG Mean Corpuscular Hemoglobin 33.8 % Concent Red Cell Distribution Width 12.0 % Platelet Count 119 TH/MM3 Mean Platelet Volume 11.2 FL Neutrophils (%) (Auto) 70.5 % Lymphocytes (%) (Auto) 22.5 % Monocytes (%) (Auto) 6.3 % Eosinophils (%) (Auto) 0.3 % Basophils (%) (Auto) 0.4 % Neutrophils # (Auto) 5.4 TH/MM3 Lymphocytes # (Auto) 1.7 TH/MM3 Monocytes # (Auto) 0.5 TH/MM3 Eosinophils # (Auto) 0.0 TH/MM3 Basophils # (Auto) 0.0 TH/MM3 CBC Comment DIFF FINAL Differential Comment Prothrombin Time 10.2 SEC Prothromb Time International 0.9 RATIO Ratio Activated Partial 25.1 SEC Thromboplast Time Sodium Level 141 MEQ/L Potassium Level 3.8 MEQ/L Chloride Level 104 MEQ/L Carbon Dioxide Level 31.1 MEQ/L Anion Gap 6 MEQ/L Blood Urea Nitrogen 17 MG/DL Creatinine 0.63 MG/DL Estimat Glomerular Filtration 92 ML/MIN Rate Random Glucose 268 MG/DL Calcium Level 8.9 MG/DL Total Creatine Kinase 47 U/L Troponin I LESS THAN 0.02 NG/ML MDM Medical Decision Making Medical Screen Exam Complete: Yes Emergency Medical Condition: Yes Medical Record Reviewed: Yes Differential Diagnosis Differential diagnosis includes RI, angina, pericarditis, pleurisy, GERD, anxiety. Narrative Course I have reviewed the patient's electronic medical record. Patient was seen in January 2017 for chest pain but left AMA IV placed I reviewed the EKG which shows sinus rhythm but no ST elevation I reviewed the chest x-ray which does not show anything emergent Extended cardiac monitoring shows sinus rhythm without ectopy CBC is normal Metabolic profile is normal CK is normal Troponin is normal Coagulation studies are normal I gave her an aspirin. I tried a sublingual nitroglycerin which did not do anything. Her pain is very atypical and her workup is entirely negative. I discussed with the hospitalist. We are placing her in 23 hour observation in the chest pain center to rule out cardiac cause of her symptoms. Diagnosis Primary Impression: Chest pain Qualified Code: R07.2 - Precordial pain Additional Impression: CAD (coronary artery disease) Qualified Code: I25.10 - Coronary artery disease due to calcified coronary lesion Admitting Information Admitting Physician Requests: Observation Victor Manuel Mccormack MD April 05, 2017 12:14
[2017-04-05] MEDS ORDERED: SODIUM CHLORIDE 0.9% FLUSH 10 ML FLUSH IVF PRN (12:15)
[2017-04-05] MEDS ORDERED: ASPIRIN 325 MG TAB PO ONE (12:15)
[2017-04-05 12:30] LABS: AUTOMATED NEUTROPHIL # 5.4 TH/MM3 (1.8-7.7); BASOPHIL % 0.4 % (0.0-2.0); EOSINOPHIL % 0.3 % (0.0-4.0); HEMATOCRIT 39.6 % (35.0-46.0); HEMO FLAGS DIFF FINAL; LYMPH % 22.5 % (9.0-44.0); LYMPHOCYTE # 1.7 TH/MM3 (1.0-4.8); MEAN CELL VOLUME 89.7 FL (80.0-100.0); MEAN CORPUSCULAR HEMOGLOBIN 30.3 PG (27.0-34.0); MEAN CORPUSCULAR HGB CONC 33.8 % (32.0-36.0); MONO % 6.3 % (0.0-8.0); NEUT % 70.5 % (16.0-70.0); PLATELET COUNT 119 TH/MM3 (150-450); RED BLOOD COUNT 4.41 MIL/MM3 (4.00-5.30); WHITE BLOOD COUNT 7.6 TH/MM3 (4.0-11.0)
[2017-04-05 12:43] LABS: CHLORIDE 104 MEQ/L (98-107); POTASSIUM 3.8 MEQ/L (3.5-5.1); SODIUM (NA) 141 MEQ/L (136-145)
[2017-04-05 12:46] LABS: APTT (PATIENT) 25.1 SEC (24.3-30.1); INTERNATIONAL NORMALIZED RATIO 0.9 RATIO; PROTHROMBIN TIME - PATIENT 10.2 SEC (9.8-11.6)
[2017-04-05 12:48] LABS: ANION GAP 6 MEQ/L (5-15); BICARBONATE 31.1 MEQ/L (21.0-32.0); BLOOD UREA NITROGEN 17 MG/DL (7-18)
--- NOTE | 2017-04-05 12:48 | RADHPO ---
EXAM DATE/TIME: 04/05/2017 12:08 [facility] COMPARISON: CHEST SINGLE AP, February 13, 2017, 13:35. INDICATIONS : Chest pain. MEDICAL HISTORY : Gastroparesis. Chronic obstructive pulmonary disease. Hypercholesterolemia. Diabetic. Thyroid dis ease. CVA. CHF. CAD. Hypertension. Asthma. Sleep apnea. Diverticulitis. Hiatial hernia. GERD. SURGICAL HISTORY : Tonsillectomy. Total knee replacement, right. Cholecystectomy. Cardiac cath w/ stents. Angioplasty. A ppendectomy. Hysterectomy. Right hip replacement. Right rotator cuff repair. ENCOUNTER: Initial ACUITY: 2 weeks PAIN SCORE: 7/10 LOCATION: chest FINDINGS: A single view of the chest demonstrates the lungs to be symmetrically aerated without evidence of mas s, infiltrate or effusion. The cardiomediastinal contours are unremarkable. Osseous structures are intact. CONCLUSION: No acute disease. Manish Thornton MD FACR on April 05, 2017 at 12:46 Board Certified Radiologist. This report was verified electronically.
[2017-04-05 12:51] LABS: GLOMERULAR FILTRATION RATE 92 ML/MIN (>89)
[2017-04-05 13:05] LABS: CREATINE KINASE 47 U/L (26-192)
[2017-04-05] MEDS ORDERED: NITROGLYCERIN 0.4 MG SL 25 TABS/BTL SL ONE (14:15)
[2017-04-05] MEDS ORDERED: NITROGLYCERIN 0.4 MG SL 25 TABS/BTL SL PRN ×2 (14:15→16:00)
[2017-04-05] MEDS ORDERED: GLUCAGON 1 MG/ML VIAL OTHER PRN (16:00)
[2017-04-05] MEDS ORDERED: ACETAMINOPHEN 500 MG CPLT PO PRN (16:00)
[2017-04-05] MEDS ORDERED: DEXTROSE 50% IN WATER 50 ML VIAL(D50) IV PUSH PRN (16:00)
[2017-04-05] MEDS ORDERED: SODIUM CHLORIDE 0.9% FLUSH 10 ML FLUSH IV FLUSH PRN (16:00)
[2017-04-05] MEDS ORDERED: ONDANSETRON HCL 4 MG/2 ML VIAL IV PRN (16:00)
[2017-04-05] MEDS ORDERED: LORazepam 0.5 MG TAB PO PRN (16:15)
[2017-04-05] MEDS ORDERED: ALBUTEROL SULFATE 90 MCG/ACT HFA 8 GM INHALER INH PRN (16:15)
[2017-04-05] MEDS ORDERED: traMADol HCL 50 MG TAB PO PRN (16:15)
[2017-04-05] MEDS ORDERED: BENZONATATE 100 MG CAP PO PRN (16:15)
--- NOTE | 2017-04-05 16:21 | HHI.HP ---
[facility] Service [facility] Primary Care Physician Non-Staff Admission Diagnosis chest pain Diagnoses: (1) Chest pain Diagnosis: Principal Chief Complaint: Chest pain Travel History International Travel<30 Days: No Contact w/Intl Traveler <30 Da: No Traveled to Known Affected Are: No History of Present Illness 77-year-old female with rather significant medical history to include hypertension, hyperlipidemia, coronary artery disease, diabetes, history tobacco use, chronic neck and back pain, rheumatoid arthritis, fibromyalgia, chronic obstructive pulmonary disease who presented to hospital because of chest discomfort. Patient states that she has been experiencing chest pain for 8 days now. It is been very frequent, she is not forthcoming on exactly how much pain she has been daily basis or how long she's been experiencing the pain for. The patient states that she has been packing and moving from one residence to another. And with this moving she has been experiencing chest discomfort more frequent. Patient states that the pain is located in the left side of her chest over where she has a loop recorder placed radiating into her left neck and shoulder. It is worse whenever she takes a deep breath. It does cause shortness of breath, she has had nausea without any vomiting. She has had lightheadedness and dizziness. States that the dizziness is worse whenever she bends over and then lays down. She states that the room spins whenever she lays down. Patient indicates that she had a significant workup done in September where she had a workup for left arm numbness. She had significant workup done at that time for stroke as well as she states that she underwent a nuclear stress test at that time and was told is no abnormalities. Patient does have a green building materials distributor Dr. Wing Landy Whitley, she has not contacted her green building materials distributor because she states that her green building materials distributor is on vacation. Patient was evaluated in emergency department and is recommended that she is her chest pain center for further evaluation management. Patient does have rather extensive medical history with at least 10 cardiac catheterizations documented here at this hospital. She indicates she does have loop recorder implanted at this time. She has been followed by her regular medical doctor, green building materials distributor, cloth folder machine. Recently has had change with her insulin in which she had an episode of hypoglycemia last night. Patient states that she does have congestive heart failure and has recently had increased swelling in her lower extremities. She takes her Lasix as she needs. She usually takes 1 Lasix daily unless she gets increased swelling, then she will take twice daily. Her prescription is for twice daily. She states the last 3 days she has had increased swelling and has been taking her medications twice daily. At the present time the patient is experiencing chest discomfort still located over the left anterior chest which is reproducible on palpation. We counseled patient extensively on muscle strain and sprain, costochondritis because of recent packing and moving to a new residence. Review of Systems Constitutional: DENIES: Diaphoretic episodes, Fatigue, Fever, Weight gain, Weight loss, Chills, Dizziness, Change in appetite, Night Sweats Eyes: DENIES: Blurred vision, Diplopia, Eye inflammation, Eye pain, Vision loss , Double Vision Ears, nose, mouth, throat: COMPLAINS OF: Hearing loss, DENIES: Vertigo, Nasal discharge, Throat pain, Ear Pain, Running Nose, Sinus Pain Respiratory: DENIES: Apneas, Cough, Snoring, Wheezing, Hemoptysis, Sputum production, Shortness of breath Cardiovascular: COMPLAINS OF: Chest pain, DENIES: Palpitations, Syncope, Dyspnea on Exertion, Lower Extremity Edema, Orthopnea Gastrointestinal: DENIES: Abdominal pain, Black stools, Bloody stools, Constipation, Diarrhea, Nausea, Vomiting, Difficulty Swallowing, Anorexia Genitourinary: DENIES: Abnormal vaginal bleeding, Dysmenorrhea, Dyspareunia, Sexual dysfunction, Urinary frequency, Urinary incontinence, Urgency, Hematuria , Dysuria, Nocturia, Vaginal discharge Musculoskeletal: COMPLAINS OF: Joint pain, Muscle aches, Back pain, Neck pain, DENIES: Stiffness, Joint Swelling Neurologic: DENIES: Abnormal gait, Headache, Localized weakness, Paresthesias, Seizures, Speech Problems, Tremor, Poor Balance Past Family Social History Past Medical History Hypertension Hyperlipidemia Coronary artery disease Diabetes Fibromyalgia Degenerative joint disease Rheumatoid arthritis History of diverticulosis Chronic neck and back pain Chronic obstructive pulmonary disease Gastroesophageal reflux Anxiety depression Hypothyroidism History of CVA Congestive heart failure Past Surgical History Multiple cardiac catheterizations at least 10 at this hospital Coronary artery Stent placement Hysterectomy Tonsillectomy Appendectomy Cholecystectomy Right hip replacement Right knee replacement Right rotator cuff surgery Reported Medications Reported Meds & Active Scripts Active Ultram (Tramadol HCl) 50 Mg Tab 50 Mg PO Q6H PRN Reported Novolog Flexpen Inj (Insulin Aspart) 300 Unit/3 Ml Pen 20 Units SQ TIDAC Tresiba Flextouch Pen Inj (Insulin Degludec Inj) 300 unit/3 ML Pen 60 Units SQ DAILY Folic Acid 5 Mg Cap 1 Mg PO DAILY Ventolin Hfa 18 GM Inh (Albuterol Sulfate) 90 Mcg/Act Aer 2 Puff INH Q4-6H PRN Benzonatate 100 Mg Cap 100 Mg PO TID PRN B12 (Cyanocobalamin) 1,000 Mcg Tab 1,000 Mcg IJ [id number] Benadryl Allergy (Diphenhydramine HCl) 25 Mg Tab 50 Mg PO DAILY PRN Crestor (Rosuvastatin Calcium) 40 Mg Tab 40 Mg PO DAILY Synthroid (Levothyroxine Sodium) 50 Mcg Tab 50 Mcg PO DAILY Nitro-Dur Patch 24 HR (Nitroglycerin) 0.1 Mg/Hr Patch 0.1 Mg T-DERMAL DAILY Lorazepam 0.5 Mg Tab 0.5 Mg PO HS PRN Furosemide 40 Mg Tab 40 Mg PO BID Clopidogrel (Clopidogrel Bisulfate) 75 Mg Tab 75 Mg PO HS Calcium 600 with Vitamin D (Calcium Carbonate-Cholecalciferol) 600-400 mg-Unit Tab 1 Tab PO DAILY Aspirin 325 Mg Tab 325 Mg PO DAILY Allergies: Coded Allergies: Atarax (Verified Allergy, Severe, THROAT SWELLING, 04/05/17) Bactrim (Verified Allergy, Severe, RASH (SULFA), 04/05/17) Codeine (Verified Allergy, Severe, VOMITING, 04/05/17) Flagyl (Verified Allergy, Severe, NAUSEA/VOMITING, 04/05/17) Keflex (Verified Allergy, Severe, RASH, 04/05/17) Lexapro (Verified Allergy, Severe, 04/05/17) Lyrica (Verified Allergy, Severe, CARDIAC ARRYTHMIAS, 04/05/17) Penicillin (Verified Allergy, Severe, RASH, 04/05/17) Sulfa (Verified Allergy, Severe, RASH, 04/05/17) Tetanus Toxoid (Verified Allergy, Severe, Rash, 04/05/17) Iodide Tincture (Verified Adverse Reaction, Mild, Headache, 04/05/17) Reglan (Verified Adverse Reaction, Mild, Headache, 04/05/17) VOMITING Uncoded Allergies: SURGICAL STEEL (Allergy, Severe, 08/02/06) METALS (Allergy, Unknown, Swelling, 12/04/04) Family History Reviewed is significant for heart disease Social History Patient quit smoking 1989 prior to that she smoked up to a pack a cigarettes a day since she was 16 years old. She denies any alcohol or illicit drugs. Physical Exam Vital Signs Vital Signs Date Time Temp Pulse Resp B/P Pulse Ox O2 Delivery O2 Flow Rate FiO2 04/05/17 15:29 98.2 85 18 143/82 95 04/05/17 14:23 72 18 134/76 98 Room Air 04/05/17 12:55 68 18 140/71 98 Room Air 04/05/17 12:17 98 Room Air 04/05/17 12:01 97.5 66 18 126/74 100 Physical Exam GENERAL: Well-developed, well-nourished, in no acute distress. alert and orientated HEENT: Head is normocephalic without any lesions or masses noted. Facial features are symmetric. Eyes: Pupils equal round reactive to light. Extraocular muscles are intact. Conjunctivae were clear. Oropharyngeal: Pharynx without any erythema edema. Tongue is midline without deviation. Buccal mucosa is moist without any masses or lesions NECK: Supple without any masses. Trachea midline no deviation. No JVD, no bruits are appreciated. Reproducible chest wall tenderness along the left sternal border CARDIAC: Regular rhythm, regular rate. S1/S2 are heard. No murmurs gallops or rubs. LUNGS: Clear to auscultation bilaterally. No wheeze, rhonchi or rales. No use of accessory muscles on inspiration or expiration. ABDOMEN: Soft, nontender. Nondistended. Bowel sounds heard in all 4 quadrants. No organomegaly or masses. Negative rebound, negative guarding EXTREMITIES: No edema, pulses are equal bilaterally. No cyanosis or clubbing NEUROLOGY: Mood and affect appear appropriate. Cranial nerves II through XII grossly intact. Muscle strength 5/5 in upper and lower extremities bilaterally. Deep tendon reflexes are 2+ in upper and lower extremities bilaterally. Laboratory Laboratory Tests Test 04/05/17 12:10 White Blood Count 7.6 Red Blood Count 4.41 Hemoglobin 13.4 Hematocrit 39.6 Mean Corpuscular Volume 89.7 Mean Corpuscular Hemoglobin 30.3 Mean Corpuscular Hemoglobin 33.8 Concent Red Cell Distribution Width 12.0 Platelet Count 119 Mean Platelet Volume 11.2 Neutrophils (%) (Auto) 70.5 Lymphocytes (%) (Auto) 22.5 Monocytes (%) (Auto) 6.3 Eosinophils (%) (Auto) 0.3 Basophils (%) (Auto) 0.4 Neutrophils # (Auto) 5.4 Lymphocytes # (Auto) 1.7 Monocytes # (Auto) 0.5 Eosinophils # (Auto) 0.0 Basophils # (Auto) 0.0 CBC Comment DIFF FINAL Differential Comment Prothrombin Time 10.2 Prothromb Time International 0.9 Ratio Activated Partial 25.1 Thromboplast Time Sodium Level 141 Potassium Level 3.8 Chloride Level 104 Carbon Dioxide Level 31.1 Anion Gap 6 Blood Urea Nitrogen 17 Creatinine 0.63 Estimat Glomerular Filtration 92 Rate Random Glucose 268 Calcium Level 8.9 Total Creatine Kinase 47 Troponin I LESS THAN 0.02 Result Diagram: 04/05/17 1210 04/05/17 1210 Imaging Last Impressions Chest X-Ray 04/05/17 1211 Signed Impressions: Service Date/Time: Wednesday, April 05, 2017 12:08 - CONCLUSION: No acute disease. Manish Thornton MD FACR Assessment and Plan Assessment and Plan Chest pain, atypical Patient with increased risk factors to include age, hypertension, hyperlipidemia, coronary artery disease, history tobacco use, diabetes, family history of heart disease Patient does have reproducible chest wall tenderness, likely costochondritis related to recent packing and moving to a new residence We'll continue to trend cardiac enzymes and EKGs rule out any acute coronary event We'll pursue nuclear stress test rule out any underlying ischemia Continue aspirin, nitroglycerin as needed, oxygen Hypertension, hyperlipidemia, coronary artery disease Continue home medications Diabetes Accu-Cheks with sliding scale insulin Rheumatoid arthritis, degenerative arthritis, fibromyalgia, chronic neck and back pain Continue tramadol for pain DVT prevention Sequential compression devices Written by Victor Manuel Rosen, acting as scribe for Dr. Perez on 04/05/17 at 16: 03. This note was transcribed by scribe [Victor Manuel Rosen]. I, Dr. Eugenio Perez personally performed the history, physical exam, and medical decision making; and confirmed the accuracy of the information in the transcribed note. Authenticated by Dr. Eugenio Perez on 04/05/17 at 16:10. Problem Qualifiers (1) Chest pain: Qualified Code: R07.2 - Precordial pain Victor Manuel Rosen April 05, 2017 16:21 Eugenio Perez MD April 05, 2017 22:53
[2017-04-05] MEDS ORDERED: diphenhydrAMINE HCL 50 MG CAP PO PRN (16:30)
[2017-04-05 17:00] LABS: CREATINE KINASE 38 U/L (26-192)
[2017-04-05] MEDS: INSULIN ASPART SUPPLEMENTAL SCALE SQ SCH ×2 (17:51→21:17)
[2017-04-05 20:37] LABS: CREATINE KINASE 39 U/L (26-192)
[2017-04-05] MEDS ORDERED: CLOPIDOGREL 75 MG TAB PO SCH (21:00)
[2017-04-05] MEDS: FUROSEMIDE 40 MG TAB PO SCH (21:17)
[2017-04-05] MEDS: SODIUM CHLORIDE 0.9% FLUSH 10 ML FLUSH IV FLUSH SCH (21:17)
[2017-04-06 00:20] VITALS: BP 130/67; PULSE 83; RESP 16; TEMP 98; O2SAT 98
[2017-04-06 04:07] VITALS: BP 117/63; PULSE 67; RESP 14; TEMP 97.9; O2SAT 100
[2017-04-06] MEDS ORDERED: LEVOTHYROXINE SODIUM 50 MCG TAB PO SCH (06:00)
[2017-04-06] MEDS: INSULIN ASPART SUPPLEMENTAL SCALE SQ SCH ×2 (06:38→11:00)
[2017-04-06 09:00] VITALS: PULSE 66
[2017-04-06] MEDS ORDERED: ASPIRIN 325 MG TAB PO SCH (09:00)
[2017-04-06] MEDS: FUROSEMIDE 40 MG TAB PO SCH (09:00)
[2017-04-06] MEDS: ATORVASTATIN 40 MG TAB PO SCH ×2 (09:00→09:10)
[2017-04-06] MEDS: SODIUM CHLORIDE 0.9% FLUSH 10 ML FLUSH IV FLUSH SCH (09:12)
[2017-04-06 09:33] VITALS: BP 142/77; PULSE 71; RESP 15; TEMP 97.2; O2SAT 99
[2017-04-06] MEDS ORDERED: REGADENOSON INJ 0.4 MG/5 ML SYR IV ONE (10:25)
--- NOTE | 2017-04-06 11:01 | HHI.PR ---
Subjective Remarks Patient is no longer having chest pain this morning. No shortness of breath. States she is feeling much better. Objective Vitals Vital Signs Date Time Temp Pulse Resp B/P Pulse Ox O2 Delivery O2 Flow Rate FiO2 04/06/17 09:33 97.2 71 15 142/77 99 04/06/17 04:07 97.9 67 14 117/63 100 04/06/17 00:20 98.0 83 16 130/67 98 04/05/17 23:00 70 04/05/17 20:45 98.2 73 14 127/60 97 04/05/17 19:40 96 21 04/05/17 16:05 97 21 04/05/17 15:29 98.2 85 18 143/82 95 04/05/17 14:23 72 18 134/76 98 Room Air 04/05/17 12:55 68 18 140/71 98 Room Air 04/05/17 12:17 98 Room Air 04/05/17 12:01 97.5 66 18 126/74 100 Result Diagram: 04/05/17 1210 04/05/17 1210 Imaging Last Impressions Myocardial Perfusion Scan Nuc Med 04/06/17 0000 Signed Impressions: Service Date/Time: Thursday, April 06, 2017 10:34 - CONCLUSION: 1. No significant reversible perfusion defects to suggest ischemia. 2. Normal ejection fraction. RISK CATEGORY: Low (<1%% Annual Mortality Rate) Tejas Sapp MD Chest X-Ray 04/05/17 1211 Signed Impressions: Service Date/Time: Wednesday, April 05, 2017 12:08 - CONCLUSION: No acute disease. Manish Thornton MD FACR Objective Remarks GENERAL: This is a well-nourished, well-developed patient, in no apparent distress. CARDIOVASCULAR: Normal rate and regular rhythm without murmurs, gallops, or rubs. RESPIRATORY: Good respiratory efforts. Breath sounds equal and clear to auscultation bilaterally. GASTROINTESTINAL: Abdomen soft, non-tender, non-distended. Normal active bowel sounds MUSCULOSKELETAL: Extremities without cyanosis, or edema. NEURO: Alert & Oriented x4 to person, place, time, situation. Moves all ext x4 PSYCH: Appropriate mood and affect. A/P Problem List: (1) Chest pain ICD Code: R07.9 Status: Acute Assessment and Plan 77-year-old female admitted with atypical chest pain. Risk factors include hypertension, coronary artery disease, history of tobacco abuse and diabetes. Patient was admitted for ACS rule out. EKG and cardiac enzymes unremarkable. She had a nuclear stress test. Symptoms seems to be more consistent with musculoskeletal pain or costochondritis. She has been moving boxes at home. The patient's pain resolved. She is discharge home in good condition. Discharge home in good condition Diet: Heart healthy Activity: Regular. Patient advised to refrain from strenuous activities. Meds: Per med rec. No new medications Follow-up with PCP as scheduled. Discharge Planning DC home today Eugenio Perez MD April 06, 2017 11:01
--- NOTE | 2017-04-06 12:02 | RADHPO ---
EXAM DATE/TIME: 04/06/2017 10:34 [facility] COMPARISON: MYOCARDIAL PERF PHARM SPECT, GATED W/EF, July 20, 2011, 9:10. INDICATIONS : Left chest pain radiating to left neck with dyspnea, nausea and dizziness. Angina. DOSE: 26.1 mCi Tc99m Myoview at stress. 8.6 mCi Tc99m Myoview at rest. 0.4 mg Lexiscan STRESS SYMPTOMS: Nausea, stomach pain, chest pain and headache. EJECTION FRACTION: > 70% MEDICAL HISTORY : Hypercholesterolemia. Diabetes mellitus type 2. Chronic obstructive pulmonary disease. Hypertension. Ex-smoker. SURGICAL HISTORY : Tonsillectomy. Hysterectomy. ENCOUNTER: Initial ACUITY: 2 weeks PAIN SCALE: 7/10 LOCATION: Left chest TECHNIQUE: The patient underwent pharmacologic stress with infusion of prescribed dose. Continuous ECG tracing was monitored during stress. Gated SPECT imaging was performed after stress and conventional SPECT i maging was performed at rest. The examination was performed on a SPECT/CT scanner, both attenuation and non-corrected datasets were reviewed. FINDINGS: DISTRIBUTION: The maximum perfused segment at stress is in the anterolateral wall. PERFUSION STUDY: The pattern of perfusion at stress is within normal limits. GATED STUDY: There is intact wall motion and thickening without hypokinetic or dyskinetic segments. CONCLUSION: 1. No significant reversible perfusion defects to suggest ischemia. 2. Normal ejection fraction. RISK CATEGORY: Low (<1% Annual Mortality Rate) Tejas Sapp MD on April 06, 2017 at 11:59 Board Certified Radiologist. This report was verified electronically.
--- NOTE | 2017-04-06 12:19 | HHI.DCPOC ---
Discharge Care Plan Diagnosis: (1) Chest pain Goals to Promote Your Health * To prevent worsening of your condition and complications * To maintain your health at the optimal level Directions to Meet Your Goals Take your medications as prescribed Follow your dietary instruction Follow activity as directed Keep your appointments as scheduled Take your immunizations and boosters as scheduled If your symptoms worsen call your PCP, if no PCP go to Urgent Care Center or Emergency Room Smoking is Dangerous to Your Health. Avoid second hand smoke Call the 24-hour hour crisis hotline for domestic abuse at Victor Manuel Rosen April 06, 2017 12:19
--- NOTE | 2017-04-06 13:12 | EKG ---
Date Performed: 04/05/2017 Time Performed: 11:53:06 PTAGE: 77 years EKG: Sinus rhythm Right bundle branch block Anterior and inferior non specific T-wave changes Low QRS voltages in prec ordial leads Abnormal ECG PREVIOUS TRACING : 02/13/2017 13.35 DOCTOR: David Baca Interpretating Date/Time 04/06/2017 13:10:18
--- NOTE | 2017-04-06 13:14 | EKG ---
Date Performed: 04/05/2017 Time Performed: 16:41:50 PTAGE: 77 years EKG: Sinus rhythm Right bundle branch block Anterior and inferior T wave changes are nonspecific Low QRS voltages in p recordial leads Abnormal ECG PREVIOUS TRACING : 04/05/2017 13.25 DOCTOR: David Baca Interpretating Date/Time 04/06/2017 13:14:11
--- NOTE | 2017-04-06 13:14 | EKG ---
Date Performed: 04/05/2017 Time Performed: 13:25:50 PTAGE: 77 years EKG: Sinus bradycardia Right bundle branch block Anterior and inferior T wave changes are nonspe cific Low QRS voltages in precordial leads Abnormal ECG PREVIOUS TRACING : 04/05/2017 11.53 DOCTOR: David Baca Interpretating Date/Time 04/06/2017 13:12:29
--- NOTE | 2017-04-06 13:18 | EKG ---
Date Performed: 04/05/2017 Time Performed: 19:31:44 PTAGE: 77 years EKG: Sinus rhythm Left axis deviation RBBB with left anterior fascicular block Low QRS voltages in precordial leads An terior and inferior nonspecific T-wave changes Abnormal ECG PREVIOUS TRACING : 04/05/2017 16.41 DOCTOR: David Baca Interpretating Date/Time 04/06/2017 13:16:49
--- NOTE | 2017-04-06 13:29 | TR ---
Date Performed: 04/06/2017 Time Performed: 10:55:57 DOCTOR: David Baca DRUG LIST: CLINICAL HISTORY: REASON FOR TEST: Chest pain REASON FOR ENDING: OBSERVATION: CONCLUSION: Lexiscan stress test was performed under standard four minute protocol. Radionuclide was injected one minute prior to ending the test. Developed nausea, stomach pain, chest pain and hea dache. No electrocardiographic abnormalities were present to suggest ischemia. Recovery was quick and uneventful with resolution of symptoms. Nuclear imaging and interpretation are pending. COMMENTS:
== END 2017-04-06 13:37 | disposition home or self-care (01) ==
LOC: PHED 11:51 → PHEDA 14:28 → PH3B 15:18
PROVIDERS: ADMIT Family Medicine; ATTEND Family Medicine
DX: R07.89 Other chest pain (principal); E78.5 Hyperlipidemia, unspecified; I11.0 Hypertensive heart disease with heart failure; I50.9 Heart failure, unspecified; I25.10 Atherosclerotic heart disease of native coronary artery without angina pectoris; E11.9 Type 2 diabetes mellitus without complications; M06.9 Rheumatoid arthritis, unspecified; M54.9 Dorsalgia, unspecified; M54.2 Cervicalgia; G89.29 Other chronic pain; K21.9 Gastro-esophageal reflux disease without esophagitis; E03.9 Hypothyroidism, unspecified; M79.7 Fibromyalgia; J44.9 Chronic obstructive pulmonary disease, unspecified; E78.00 Pure hypercholesterolemia, unspecified; M81.0 Age-related osteoporosis without current pathological fracture; H91.90 Unspecified hearing loss, unspecified ear; F32.9 Major depressive disorder, single episode, unspecified; F41.9 Anxiety disorder, unspecified; Z79.4 Long term (current) use of insulin; Z79.82 Long term (current) use of aspirin; Z79.02 Long term (current) use of antithrombotics/antiplatelets; Z88.1 Allergy status to other antibiotic agents; Z91.041 Radiographic dye allergy status; Z88.5 Allergy status to narcotic agent; Z88.0 Allergy status to penicillin; Z91.048 Other nonmedicinal substance allergy status; Z87.891 Personal history of nicotine dependence; Z86.73 Personal history of transient ischemic attack (TIA), and cerebral infarction without residual deficits; Z96.641 Presence of right artificial hip joint; Z96.651 Presence of right artificial knee joint; Z95.5 Presence of coronary angioplasty implant and graft
CPT/HCPCS: 71010; 78452; 80048; 82550; 82948; 84484; 85025; 85610; 85730; 93005; 93017; 99285; A9502; G0378; J1815; J2785

== ENCOUNTER 2017-04-22 10:08 | Emergency (ER) | payer MEDICARE ==
[~2017-04-22] VITALS: Ht 162.6 cm; Wt 71.0 kg
[~2017-04-22 10:08] MED LIST changes: -CIPR-9 PO; -FURO1TAB60 PO; -LANTUS2P SQ; +NOVOINJ3 SQ; -NOVOLOGP2 SQ; -PROM25TA5 PO; -ZOFR4TAB3 SL
[2017-04-22 10:19] VITALS: BP 118/65; PULSE 74; RESP 17; TEMP 98.1; O2SAT 99
[2017-04-22] MEDS ORDERED: DIAZEPAM 5 MG TAB PO ONE (11:15)
--- NOTE | 2017-04-22 11:20 | PD ---
HPI Chief Complaint: Pain: Acute or Chronic Time Seen by Provider: 10:59 Travel History International Travel<30 days: No Contact w/Intl Traveler<30days: No Traveled to known affect area: No History of Present Illness HPI 77yo F with PMH of fibromyalgia, arthritis, right rotator cuff repair presents to the ED with c/o bilateral neck spasms, bilateral upper back and shoulder pain but worst on left for 2-3 days. States she was lifting boxes 2-3 days ago. Pt is worst with movement. Also complains of dysuria. Denies any fever, chest pain, sob, n/v, abdominal pain, focal weakness, numbness or trauma or fall. PFSH Past Medical History Hx Anticoagulant Therapy: Yes Arthritis: Yes (RA) Asthma: Yes Autoimmune Disease: Yes Blood Disorders: No Anxiety: Yes Depression: Yes Heart Rhythm Problems: No Cancer: No Cardiac Catheterization: Yes (Multiple Angioplasty last time X 6 stints-LAST CATH June) Cardiovascular Problems: Yes High Cholesterol: Yes Chemotherapy: No Chest Pain: Yes Congestive Heart Failure: Yes COPD: Yes Cerebrovascular Accident: Yes (CVA) Coronary Artery Disease: Yes Diabetes: Yes Patient Takes Glucophage: No Diminished Hearing: Yes ([place]) Diverticulitis: Yes Endocrine: No Fibromyalgia: Yes Gastrointestinal Disorders: Yes (GASTROPARESIS) GERD: Yes Glaucoma: No Genitourinary: No Headaches: Yes Hepatitis: No Hiatal Hernia: Yes Hypertension: Yes Immune Disorder: Yes (FIBROMYALGIA\RA) Kidney Stones: No Musculoskeletal: Yes (osteoporosis,fibromyalgia,spinal stenosis) Neurologic: Yes (hemangioma) Psychiatric: No Reproductive: Yes Respiratory: Yes Migraines: Yes Myocardial Infarction: No Radiation Therapy: No Renal Failure: No Seizures: No Sickle Cell Disease: No Sleep Apnea: Yes Thyroid Disease: Yes Ulcer: No PNEUMOCCOCAL Vaccine (Year): 2007 ?: Not Menopausal: Yes Past Surgical History Abdominal Surgery: Yes AICD: No Appendectomy: Yes Body Medical Devices: RIGHT SHOULDER SURGERY, NO JOINT REPLACEMENT. HIP REPLACEMENT REMOVED. Cardiac Surgery: Yes (CARDIAC CATH WITH STENTS) Cholecystectomy: Yes Coronary Artery Bypass Graft: No Coronary Stent: Yes (X2) Endocrine Surgery: No Genitourinary Surgery: Yes Gynecologic Surgery: Yes (HYSTERECTOMY) Hysterectomy: Yes Joint Replacement: Yes (RIGHT HIP/RIGHT KNEE) Neurologic Surgery: No Pacemaker: No Tonsillectomy: Yes Other Surgery: Yes (TONSILLECTOMY, APPENDECTOMY, HYSTERECTOMY, ROTATOR CUFF, GALLBLADDER, L HIP) Social History Alcohol Use: No Tobacco Use: No (QUIT 1989) Substance Use: No Allergies-Medications (Allergen,Severity, Reaction): Coded Allergies: Atarax (Verified Allergy, Severe, THROAT SWELLING, 04/22/17) Bactrim (Verified Allergy, Severe, RASH (SULFA), 04/22/17) Codeine (Verified Allergy, Severe, VOMITING, 04/22/17) Flagyl (Verified Allergy, Severe, NAUSEA/VOMITING, 04/22/17) Keflex (Verified Allergy, Severe, RASH, 04/22/17) Lexapro (Verified Allergy, Severe, 04/22/17) Lyrica (Verified Allergy, Severe, CARDIAC ARRYTHMIAS, 04/22/17) Penicillin (Verified Allergy, Severe, RASH, 04/22/17) Sulfa (Verified Allergy, Severe, RASH, 04/22/17) Tetanus Toxoid (Verified Allergy, Severe, Rash, 04/22/17) Iodide Tincture (Verified Adverse Reaction, Mild, Headache, 04/22/17) Reglan (Verified Adverse Reaction, Mild, Headache, 04/22/17) VOMITING Uncoded Allergies: SURGICAL STEEL (Allergy, Severe, 08/02/06) METALS (Allergy, Unknown, Swelling, 12/04/04) Reported Meds & Prescriptions Reported Meds & Active Scripts Active Reported Novolog Flexpen Inj (Insulin Aspart) 300 Unit/3 Ml Pen 20 Units SQ TIDAC Tresiba Flextouch Pen Inj (Insulin Degludec Inj) 300 unit/3 ML Pen 60 Units SQ DAILY Ventolin Hfa 18 GM Inh (Albuterol Sulfate) 90 Mcg/Act Aer 2 Puff INH Q4-6H PRN Benzonatate 100 Mg Cap 100 Mg PO TID PRN B12 (Cyanocobalamin) 1,000 Mcg Tab 1,000 Mcg IJ [id number] Crestor (Rosuvastatin Calcium) 40 Mg Tab 40 Mg PO DAILY Synthroid (Levothyroxine Sodium) 50 Mcg Tab 50 Mcg PO DAILY Nitro-Dur Patch 24 HR (Nitroglycerin) 0.1 Mg/Hr Patch 0.1 Mg T-DERMAL DAILY Lorazepam 0.5 Mg Tab 0.5 Mg PO HS PRN Furosemide 40 Mg Tab 40 Mg PO BID Clopidogrel (Clopidogrel Bisulfate) 75 Mg Tab 75 Mg PO HS Calcium 600 with Vitamin D (Calcium Carbonate-Cholecalciferol) 600-400 mg-Unit Tab 1 Tab PO DAILY Aspirin 325 Mg Tab 325 Mg PO DAILY Review of Systems Except as stated in HPI: all other systems reviewed are Neg Physical Exam Narrative GENERAL: 77yo F not in distress. SKIN: Focused skin assessment warm/dry. HEAD: Atraumatic. Normocephalic. NECK: No midline ttp. Bilateral scalene ttp. Bilateral ttp trapezius. CARDIOVASCULAR: Regular rate and rhythm. No murmur appreciated. RESPIRATORY: No accessory muscle use. Clear to auscultation. Breath sounds equal bilaterally. GASTROINTESTINAL: Abdomen soft, non-tender, nondistended. BACK: No midline ttp thoracic or lumbar spine. +Bilateral paraspinal ttp. MUSCULOSKELETAL: No obvious deformities. No clubbing. No cyanosis. No edema. NEUROLOGICAL: Awake and alert. No obvious cranial nerve deficits. Motor grossly within normal limits. Normal speech. PSYCHIATRIC: Appropriate mood and affect; insight and judgment normal. Data Data Last Documented VS Vital Signs Date Time Temp Pulse Resp B/P Pulse Ox O2 Delivery O2 Flow Rate FiO2 04/22/17 10:19 98.1 74 17 118/65 99 Orders Diazepam (Valium) (04/22/17 11:15) Shoulder, Limited(2vws) (04/22/17 ) Urinalysis - C+S If Indicated (04/22/17 11:10) Electrocardiogram (04/22/17 ) Urine Culture (04/22/17 12:08) Labs Laboratory Tests Test 04/22/17 12:08 Urine Collection Type CLEAN CATCH Urine Color YELLOW Urine Turbidity CLEAR Urine pH 5.5 Urine Specific [place] 1.032 Urine Protein NEG mg/dL Urine Glucose (UA) 1000 OR GREATER mg/dL Urine Ketones NEG mg/dL Urine Occult Blood NEG Urine Nitrite NEG Urine Bilirubin NEG Urine Leukocyte Esterase NEG Urine WBC 0-2 /hpf Urine Squamous Epithelial 0-5 /hpf Cells Urine Amorphous Sediment FEW Urine Bacteria MOD /hpf Urine Yeast (Budding) RARE Microscopic Urinalysis Comment CULTURE INDICATED Urine Collection Time 1208 MDM Medical Decision Making Medical Screen Exam Complete: Yes Emergency Medical Condition: Yes Interpretation(s) EKG: NSR 70bpm. LAD. RBBB. TWI III. No ST segment elevation or depression. Differential Diagnosis Musculoskeletal pain vs. arthritis vs. chronic pain Narrative Course 77yo F with bilateral neck spasm and bilateral upper back pain after lifting boxes 2 days ago. States her left shoulder is hurting more but denies any trauma. Pt reevaluated at bedside after valium and states her pain has improved. Xray left shoulder negative for acute abnormality. UA showed moderate bacteria. Since pt has dysuria, will treat. Pt has no systemic symptoms. Return precautions given. Diagnosis Primary Impression: UTI (urinary tract infection) Qualified Code: N39.0 - Urinary tract infection without hematuria, site unspecified Additional Impression: Musculoskeletal pain Patient Instructions: General Instructions Departure Forms: Tests/Procedures Additional Instructions: Please follow up with your PMD in 3-7 days. Return to the ED if symptoms worsen. Med/Other Pt SpecificInfo: Prescription(s) given Scripts Hydrocodone-Acetaminophen (Lortab)5-325 Mg Tab1 Tab PO Q6H PRN (PAIN) #10 TAB Ref 0 Prov:Lashae Kurtz DO 04/22/17 Nitrofurantoin Monohydrate Macrocrystals 100 Mg [id number] Mg PO BID 5 Days Ref 0 Prov:Lashae Kurtz DO 04/22/17 Lashae Kurtz DO April 22, 2017 11:20
[2017-04-22 12:15] LABS: BLOOD, URINE NEG (NEG); KETONE, URINE NEG (NEG); NITRITE,URINE NEG (NEG); PH, URINE 5.5 (5.0-8.5)
[2017-04-22 12:16] LABS: GLUCOSE,URINE 1000 OR GREATER mg/dL (NEG)
[2017-04-22 12:27] LABS: METHOD OF COLLECTION CLEAN CATCH; URINE COLOR YELLOW (YELLW/STRAW)
[2017-04-22 12:29] LABS: BACTERIA, URINE MOD /hpf; COMMENT (UR) CULTURE INDICATED; CULTURE IF INDICATED CULTURE INDICATED; SQUAMOUS EPITHELIAL CELL URINE 0-5 /hpf (0-5); WBC, URINE 0-2 /hpf (0-5)
--- NOTE | 2017-04-22 13:05 | RADHPO ---
EXAM DATE/TIME: 04/22/2017 12:09 [facility] COMPARISON: No previous studies available for comparison. INDICATIONS : Left shoulder pain. MEDICAL HISTORY : Cardiovascular disease. CHF, Osteo and Rheumatoid Arthritis SURGICAL HISTORY : None. EEG Monitor ENCOUNTER: Initial ACUITY: 1 day PAIN SCORE: 10/10 LOCATION: Left Shoulder FINDINGS: 3 views of the left shoulder demonstrate no fracture or dislocation. Bones are undermineralized. Acro mioclavicular joint is intact. No soft tissue abnormality is seen. CONCLUSION: No acute left shoulder abnormality is identified. Reilly Suarez MD on April 22, 2017 at 13:03 Board Certified Radiologist. This report was verified electronically.
[2017-04-22 13:31] VITALS: BP 118/61
[2017-04-22] MEDS ORDERED: NITR100C4 PO (13:31)
[2017-04-22] MEDS ORDERED: HYDR-3533 PO (13:31)
--- NOTE | 2017-04-23 08:34 | EKG ---
Date Performed: 04/22/2017 Time Performed: 11:11:52 PTAGE: 77 years EKG: Sinus rhythm Right bundle branch block Inferior T wave changes are nonspecific Low QRS voltages in precordial gail ds Abnormal ECG PREVIOUS TRACING : 04/05/2017 19.31 No significant change from previous tracing noted. DOCTOR: Tarun Herrera Interpretating Date/Time 04/23/2017 08:32:51
== END 2017-04-22 13:48 | disposition home or self-care (01) ==
LOC: PHED 10:08
DX: N39.0 Urinary tract infection, site not specified (principal); M62.830 Muscle spasm of back; M25.512 Pain in left shoulder; M79.7 Fibromyalgia; M06.9 Rheumatoid arthritis, unspecified; I50.9 Heart failure, unspecified; I25.10 Atherosclerotic heart disease of native coronary artery without angina pectoris; E11.9 Type 2 diabetes mellitus without complications; I10 Essential (primary) hypertension
CPT/HCPCS: 73030; 81001; 87086; 93005; 99284

== ENCOUNTER 2017-07-11 14:52 | Emergency (ER) | payer MEDICARE ==
[~2017-07-11] VITALS: Ht 170.2 cm; Wt 69.7 kg
[~2017-07-11 14:52] MED LIST changes: -BENA25TA3 PO; -FOLI5CAP PO; +HYDR-3533 PO; +NITR100C4 PO; -ULTR50TA5 PO
[2017-07-11 15:00] VITALS: BP 140/72; PULSE 90; RESP 18; TEMP 98; O2SAT 97
[2017-07-11] MEDS ORDERED: MORPHINE SULFATE 4 MG/ML INJ IV PUSH ONE (15:15)
[2017-07-11] MEDS ORDERED: ASPIRIN 81 MG CHEW TAB PO ONE (15:15)
[2017-07-11] MEDS ORDERED: ONDANSETRON HCL 4 MG/2 ML VIAL IV PUSH ONE (15:15)
[2017-07-11] MEDS ORDERED: SODIUM CHLORIDE 0.9% FLUSH 10 ML FLUSH IVF PRN (15:15)
[2017-07-11] MEDS ORDERED: SODIUM CHLORID 0.9% 500 ML INJ 500 ML IV ONE (15:15)
--- NOTE | 2017-07-11 15:26 | PD ---
HPI Chief Complaint: Chest Pain Time Seen by Provider: 15:09 Travel History International Travel<30 days: No Contact w/Intl Traveler<30days: No Traveled to known affect area: No History of Present Illness HPI The patient is a 77-year-old female who presents to the emergency department via private vehicle for chest pain. The patient states she has had chest pain intermittently for the last 6 weeks. The chest pain is located in the lower aspect of the chest wall, is present with exertion and at rest, described as sharp, lasts 5-10 minutes, and is occasionally associated with nausea. The patient denies any new shortness of breath, however, does note a history of chronic shortness of breath. The patient does have a history of coronary artery disease, hypertension, hyperlipidemia, and diabetes. She denies any tobacco use. The patient is followed by her party plan demonstrator, Dr. Maya, states her last stent was placed in November 2015. The patient was admitted to the hospital when March where she underwent nuclear medicine myocardial perfusion scan that was negative. The patient initially thought her chest pain was secondary to her fibromyalgia and rheumatoid arthritis, however, she thinks that it may now be related to her Cymbalta. The patient states she was placed on Cymbalta approximately 6-7 weeks ago by her neurologist, Dr. Thompson. The patient stop taking the Cymbalta 3 days ago. Symptoms are mild to moderate, possibly exacerbated by taking medications, and there are no known alleviating or exacerbating factors. PFSH Past Medical History Hx Anticoagulant Therapy: Yes Arthritis: Yes (RA) Asthma: Yes Autoimmune Disease: Yes Blood Disorders: No Anxiety: Yes Depression: Yes Heart Rhythm Problems: No Cancer: No Cardiac Catheterization: Yes (Multiple Angioplasty last time X 6 stints-LAST CATH June) Cardiovascular Problems: Yes High Cholesterol: Yes Chemotherapy: No Chest Pain: Yes Congestive Heart Failure: Yes COPD: Yes Cerebrovascular Accident: Yes (CVA) Coronary Artery Disease: Yes Diabetes: Yes Diminished Hearing: Yes ([place]) Diverticulitis: Yes Endocrine: No Fibromyalgia: Yes Gastrointestinal Disorders: Yes (GASTROPARESIS) GERD: Yes Glaucoma: No Genitourinary: No Headaches: Yes Hepatitis: No Hiatal Hernia: Yes Hypertension: Yes Immune Disorder: Yes (FIBROMYALGIA\RA) Kidney Stones: No Musculoskeletal: Yes (osteoporosis,fibromyalgia,spinal stenosis) Neurologic: Yes (hemangioma) Psychiatric: No Reproductive: Yes Respiratory: Yes Migraines: Yes Myocardial Infarction: No Radiation Therapy: No Renal Failure: No Seizures: No Sickle Cell Disease: No Sleep Apnea: Yes Thyroid Disease: Yes Ulcer: No PNEUMOCCOCAL Vaccine (Year): 2007 Menopausal: Yes Past Surgical History Abdominal Surgery: Yes AICD: No Appendectomy: Yes Body Medical Devices: RIGHT SHOULDER SURGERY, NO JOINT REPLACEMENT. HIP REPLACEMENT REMOVED. Cardiac Surgery: Yes (CARDIAC CATH WITH STENTS) Cholecystectomy: Yes Coronary Artery Bypass Graft: No Coronary Stent: Yes (X2) Endocrine Surgery: No Genitourinary Surgery: Yes Gynecologic Surgery: Yes (HYSTERECTOMY) Hysterectomy: Yes Joint Replacement: Yes (RIGHT HIP/RIGHT KNEE) Neurologic Surgery: No Pacemaker: No Tonsillectomy: Yes Other Surgery: Yes (TONSILLECTOMY, APPENDECTOMY, HYSTERECTOMY, ROTATOR CUFF, GALLBLADDER, L HIP) Social History Alcohol Use: No Tobacco Use: No (QUIT 1989) Substance Use: No Allergies-Medications (Allergen,Severity, Reaction): Coded Allergies: Sulfa (Sulfonamide Antibiotics) (Unverified Allergy, Severe, RASH, 07/09/17 ) cephalexin (Unverified Allergy, Severe, RASH, 07/09/17) codeine (Unverified Allergy, Severe, VOMITING, 07/09/17) escitalopram (Unverified Allergy, Severe, 07/09/17) hydroxyzine (Unverified Allergy, Severe, THROAT SWELLING, 07/09/17) metronidazole (Unverified Allergy, Severe, NAUSEA/VOMITING, 07/09/17) penicillin G (Unverified Allergy, Severe, RASH, 07/09/17) pregabalin (Unverified Allergy, Severe, CARDIAC ARRYTHMIAS, 07/09/17) sulfamethoxazole (Unverified Allergy, Severe, RASH (SULFA), 07/09/17) tetanus toxoid, adsorbed (Unverified Allergy, Severe, Rash, 07/09/17) trimethoprim (Unverified Allergy, Severe, RASH (SULFA), 07/09/17) iodine (Unverified Adverse Reaction, Mild, Headache, 07/09/17) metoclopramide (Unverified Adverse Reaction, Mild, Headache, 07/09/17) VOMITING sodium iodide (Unverified Adverse Reaction, Mild, Headache, 07/09/17) sodium iodide (Unverified Adverse Reaction, Mild, Headache, 07/09/17) Uncoded Allergies: SURGICAL STEEL (Allergy, Severe, 08/02/06) METALS (Allergy, Unknown, Swelling, 12/04/04) Reported Meds & Prescriptions Reported Meds & Active Scripts Active Reported Cymbalta DR (Duloxetine HCl) 30 Mg Capdr 30 Mg PO DAILY Novolog Flexpen Inj (Insulin Aspart) 300 Unit/3 Ml Pen 20 Units SQ TIDAC Tresiba Flextouch Pen Inj (Insulin Degludec Inj) 300 unit/3 ML Pen 60 Units SQ DAILY Ventolin Hfa 18 GM Inh (Albuterol Sulfate) 90 Mcg/Act Aer 2 Puff INH Q4-6H PRN Benzonatate 100 Mg Cap 100 Mg PO TID PRN B12 (Cyanocobalamin) 1,000 Mcg Tab 1,000 Mcg IJ [id number] Crestor (Rosuvastatin Calcium) 40 Mg Tab 40 Mg PO DAILY Synthroid (Levothyroxine Sodium) 50 Mcg Tab 50 Mcg PO DAILY Nitro-Dur Patch 24 HR (Nitroglycerin) 0.1 Mg/Hr Patch 0.1 Mg T-DERMAL DAILY Lorazepam 0.5 Mg Tab 0.5 Mg PO HS PRN Furosemide 40 Mg Tab 40 Mg PO BID Calcium 600 with Vitamin D (Calcium Carbonate-Cholecalciferol) 600-400 mg-Unit Tab 1 Tab PO DAILY Aspirin 325 Mg Tab 325 Mg PO DAILY Review of Systems Except as stated in HPI: all other systems reviewed are Neg HENT: No: Lightheadedness Cardiovascular: Positive: Chest Pain or Discomfort, No: Dyspnea on exertion Respiratory: Positive: Shortness of Breath (chronic) Gastrointestinal: Positive: Nausea Neurologic: Positive: Paresthesia, No: Dizziness Physical Exam Narrative GENERAL: Awake, alert, pleasant 77-year-old female who appears her stated age and is in no acute respiratory distress. SKIN: Focused skin assessment warm/dry. HEAD: Atraumatic. Normocephalic. EYES: No injection or drainage. ENT: No nasal bleeding or discharge. Mucous membranes pink and moist. NECK: Trachea midline. No JVD. CARDIOVASCULAR: Regular rate and rhythm. No murmur appreciated. Palpation of the chest wall reproduces symptoms in the left lower aspect of the chest. RESPIRATORY: No accessory muscle use. Clear to auscultation. Breath sounds equal bilaterally. GASTROINTESTINAL: Abdomen soft, mild epigastric tenderness. MUSCULOSKELETAL: No obvious deformities. No clubbing. No cyanosis. No edema. NEUROLOGICAL: Awake and alert. No obvious cranial nerve deficits. Motor grossly within normal limits. Normal speech. PSYCHIATRIC: Appropriate mood and affect; insight and judgment normal. Data Data Last Documented VS Vital Signs Date Time Temp Pulse Resp B/P Pulse Ox O2 Delivery O2 Flow Rate FiO2 07/11/17 15:46 16 Orders Electrocardiogram (07/11/17 15:09) Ckmb (Isoenzyme) Profile (07/11/17 15:09) Complete Blood Count With Diff (07/11/17 15:09) Comprehensive Metabolic Panel (07/11/17 15:09) Magnesium (Mg) (07/11/17 15:09) Prothrombin Time / Inr (Pt) (07/11/17 15:09) Act Partial Throm Time (Ptt) (07/11/17 15:09) Troponin I (07/11/17 15:09) Lipase (07/11/17 15:09) Chest, Single Ap (07/11/17 15:09) Ecg Monitoring (07/11/17 15:09) Bilateral Bp Monitoring (07/11/17 15:09) Iv Access Insert/Monitor (07/11/17 15:09) Oximetry (07/11/17 15:09) Oxygen Administration (07/11/17 15:09) Aspirin Chew (Aspirin Chew) (07/11/17 15:15) Morphine Inj (Morphine Inj) (07/11/17 15:15) Sodium Chloride 0.9% Flush (Ns Flush) (07/11/17 15:15) Sodium Chlorid 0.9% 500 Ml Inj (Ns 500 M (07/11/17 15:15) Ondansetron Inj (Zofran Inj) (07/11/17 15:15) Troponin I (07/11/17 18:25) Labs Laboratory Tests Test 07/11/17 15:25 White Blood Count 6.2 TH/MM3 Red Blood Count 4.36 MIL/MM3 Hemoglobin 13.2 GM/DL Hematocrit 39.1 % Mean Corpuscular Volume 89.8 FL Mean Corpuscular Hemoglobin 30.4 PG Mean Corpuscular Hemoglobin 33.8 % Concent Red Cell Distribution Width 13.1 % Platelet Count 132 TH/MM3 Mean Platelet Volume 12.7 FL Neutrophils (%) (Auto) 67.5 % Lymphocytes (%) (Auto) 24.3 % Monocytes (%) (Auto) 7.1 % Eosinophils (%) (Auto) 0.3 % Basophils (%) (Auto) 0.8 % Neutrophils # (Auto) 4.3 TH/MM3 Lymphocytes # (Auto) 1.5 TH/MM3 Monocytes # (Auto) 0.4 TH/MM3 Eosinophils # (Auto) 0.0 TH/MM3 Basophils # (Auto) 0.0 TH/MM3 CBC Comment DIFF FINAL Differential Comment [facility] Medical Decision Making Medical Screen Exam Complete: Yes Emergency Medical Condition: Yes Medical Record Reviewed: Yes Interpretation(s) EKG reveals normal sinus rhythm with a rate 82. RSR prime in V1 with QRS of 122 ms, right bundle branch block. Laboratory Tests Test 07/11/17 15:25 White Blood Count 6.2 TH/MM3 Red Blood Count 4.36 MIL/MM3 Hemoglobin 13.2 GM/DL Hematocrit 39.1 % Mean Corpuscular Volume 89.8 FL Mean Corpuscular Hemoglobin 30.4 PG Mean Corpuscular Hemoglobin 33.8 % Concent Red Cell Distribution Width 13.1 % Platelet Count 132 TH/MM3 Mean Platelet Volume 12.7 FL Neutrophils (%) (Auto) 67.5 % Lymphocytes (%) (Auto) 24.3 % Monocytes (%) (Auto) 7.1 % Eosinophils (%) (Auto) 0.3 % Basophils (%) (Auto) 0.8 % Neutrophils # (Auto) 4.3 TH/MM3 Lymphocytes # (Auto) 1.5 TH/MM3 Monocytes # (Auto) 0.4 TH/MM3 Eosinophils # (Auto) 0.0 TH/MM3 Basophils # (Auto) 0.0 TH/MM3 CBC Comment DIFF FINAL Differential Comment Last Impressions Chest X-Ray 07/11/17 1509 Signed Impressions: Service Date/Time: June 15:19 - CONCLUSION: No acute cardiopulmonary findings. Ernesto Thornton MD Differential Diagnosis Differential diagnoses includes acute coronary syndrome, costochondritis, pleurisy, pulmonary embolism, pericardial effusion, GERD, esophageal spasm, esophagitis, pancreatitis, gastritis, medication side effect. Narrative Course IV was established, labs are drawn and sent, and the patient was placed on cardiac telemetry monitoring and continuous pulse oximetry monitoring. EKG was ordered and interpreted. Chest x-ray was obtained. The patient was in ministered aspirin 162 mg orally. The patient was signed out to the oncoming physician at 4 PM with laboratory evaluation pending. If initial troponin is negative, patient most likely can have repeat troponin at 3 hour level and if negative discharged home with outpatient follow-up. I did review the patient's EMR, the patient had a nuclear medicine myocardial perfusion scan performed on March 27, 2017 which was negative, revealed normal ejection fraction. The patient was signed out to the oncoming physician, Dr. Contreras, 4 PM laboratory evaluation pending. Diagnosis Primary Impression: Atypical chest pain Additional Instructions: Please provide the patient a copy of her chest x-ray results, lab results, and EKG at discharge. Follow-up with your party plan demonstrator and primary physician. Return if symptoms worsen or progress. Condition: Stable Kendell Kearns MD Jul 11, 2017 15:26
--- NOTE | 2017-07-11 15:29 | RADRPT ---
EXAM DATE/TIME: 07/11/2017 15:19 [facility] COMPARISON: SHOULDER LEFT LTD (2VWS), April 22, 2017, 12:09. INDICATIONS : Chest pain for one month. MEDICAL HISTORY : Diabetes mellitus type II. Stroke SURGICAL HISTORY : Coronary artery stent. Hysterectomy. Cholecystectomy. Rt rotator cuff, Loop recorder. Rt hip replacem ent ENCOUNTER: Initial ACUITY: 1 month PAIN SCORE: 6/10 LOCATION: Bilateral chest FINDINGS: The heart is normal in size. Note is made of a loop recorder. The lungs are clear. There are degenera tive changes within the shoulders bilaterally. CONCLUSION: No acute cardiopulmonary findings. Ernesto Thornton MD on July 11, 2017 at 15:27 Board Certified Radiologist. This report was verified electronically.
[2017-07-11 15:43] LABS: AUTOMATED NEUTROPHIL # 4.3 TH/MM3 (1.8-7.7); BASOPHIL % 0.8 % (0.0-2.0); EOSINOPHIL % 0.3 % (0.0-4.0); HEMATOCRIT 39.1 % (35.0-46.0); LYMPH % 24.3 % (9.0-44.0); LYMPHOCYTE # 1.5 TH/MM3 (1.0-4.8); MEAN CELL VOLUME 89.8 FL (80.0-100.0); MEAN CORPUSCULAR HEMOGLOBIN 30.4 PG (27.0-34.0); MEAN CORPUSCULAR HGB CONC 33.8 % (32.0-36.0); MONO % 7.1 % (0.0-8.0); NEUT % 67.5 % (16.0-70.0); PLATELET COUNT 132 TH/MM3 (150-450); RED BLOOD COUNT 4.36 MIL/MM3 (4.00-5.30); RED CELL DISTRIBUTION WIDTH 13.1 % (11.6-17.2); WHITE BLOOD COUNT 6.2 TH/MM3 (4.0-11.0)
[2017-07-11] MEDS ORDERED: CYMB30CA PO (15:45)
[2017-07-11 15:46] LABS: HEMO FLAGS DIFF FINAL
[2017-07-11 15:49] LABS: CHLORIDE 104 MEQ/L (98-107); POTASSIUM 3.9 MEQ/L (3.5-5.1); SODIUM (NA) 138 MEQ/L (136-145)
[2017-07-11 15:52] VITALS: RESP 18; O2SAT 98
[2017-07-11 15:53] LABS: ANION GAP 7 MEQ/L (5-15); BICARBONATE 27.3 MEQ/L (21.0-32.0); BLOOD UREA NITROGEN 12 MG/DL (7-18); MAGNESIUM 1.7 MG/DL (1.5-2.5)
[2017-07-11 15:55] LABS: APTT (PATIENT) 24.4 SEC (24.3-30.1); PROTHROMBIN TIME - PATIENT 10.7 SEC (9.8-11.6)
[2017-07-11 15:56] LABS: ALT (GPT) 15 U/L (10-53); AST (GOT) 12 U/L (15-37); GLOMERULAR FILTRATION RATE 70 ML/MIN (>89)
[2017-07-11 15:58] LABS: TOTAL BILIRUBIN ADULT 0.7 MG/DL (0.2-1.0)
[2017-07-11 15:59] LABS: ALKALINE PHOSPHATASE 75 U/L (45-117)
[2017-07-11] MEDS ORDERED: INSULIN HUMAN REGULAR 1,000 UNITS/10 ML VIAL SQ ONE (16:15)
[2017-07-11 16:23] VITALS: BP 121/59; PULSE 73; RESP 18; O2SAT 99
[2017-07-11 16:23] LABS: CREATINE KINASE 37 U/L (26-192)
[2017-07-11 16:25] VITALS: BP_SYST 120; BP_SYST 121; BP_DIAS 59; BP_DIAS 60; PULSE 73
[2017-07-11 18:04] VITALS: BP 110/57; PULSE 72; RESP 18; O2SAT 98
--- NOTE | 2017-07-11 19:36 | PD ---
Physical Exam Date Seen by Provider: Jul 11, 2017 Time Seen by Provider: 19:33 Narrative 77-year-old female had presented with complaint of chest pain. She was seen by Dr. Kearns about his atypical pain. 2 troponins have been done and are negative. The patient is stable for discharge. Data Data Last Documented VS Vital Signs Date Time Temp Pulse Resp B/P Pulse Ox O2 Delivery O2 Flow Rate FiO2 07/11/17 18:04 72 18 110/57 98 Room Air 07/11/17 15:00 98.0 Orders Electrocardiogram (07/11/17 15:09) Ckmb (Isoenzyme) Profile (07/11/17 15:09) Complete Blood Count With Diff (07/11/17 15:09) Comprehensive Metabolic Panel (07/11/17 15:09) Magnesium (Mg) (07/11/17 15:09) Prothrombin Time / Inr (Pt) (07/11/17 15:09) Act Partial Throm Time (Ptt) (07/11/17 15:09) Troponin I (07/11/17 15:09) Lipase (07/11/17 15:09) Chest, Single Ap (07/11/17 15:09) Ecg Monitoring (07/11/17 15:09) Bilateral Bp Monitoring (07/11/17 15:09) Iv Access Insert/Monitor (07/11/17 15:09) Oximetry (07/11/17 15:09) Oxygen Administration (07/11/17 15:09) Aspirin Chew (Aspirin Chew) (07/11/17 15:15) Morphine Inj (Morphine Inj) (07/11/17 15:15) Sodium Chloride 0.9% Flush (Ns Flush) (07/11/17 15:15) Sodium Chlorid 0.9% 500 Ml Inj (Ns 500 M (07/11/17 15:15) Ondansetron Inj (Zofran Inj) (07/11/17 15:15) Troponin I (07/11/17 18:25) Insulin Human Regular Inj (Novolin R Inj (07/11/17 16:15) Labs Laboratory Tests Test 07/11/17 07/11/17 15:25 18:25 White Blood Count 6.2 TH/MM3 Red Blood Count 4.36 MIL/MM3 Hemoglobin 13.2 GM/DL Hematocrit 39.1 % Mean Corpuscular Volume 89.8 FL Mean Corpuscular Hemoglobin 30.4 PG Mean Corpuscular Hemoglobin 33.8 % Concent Red Cell Distribution Width 13.1 % Platelet Count 132 TH/MM3 Mean Platelet Volume 12.7 FL Neutrophils (%) (Auto) 67.5 % Lymphocytes (%) (Auto) 24.3 % Monocytes (%) (Auto) 7.1 % Eosinophils (%) (Auto) 0.3 % Basophils (%) (Auto) 0.8 % Neutrophils # (Auto) 4.3 TH/MM3 Lymphocytes # (Auto) 1.5 TH/MM3 Monocytes # (Auto) 0.4 TH/MM3 Eosinophils # (Auto) 0.0 TH/MM3 Basophils # (Auto) 0.0 TH/MM3 CBC Comment DIFF FINAL Differential Comment Prothrombin Time 10.7 SEC Prothromb Time International 1.0 RATIO Ratio Activated Partial 24.4 SEC Thromboplast Time Sodium Level 138 MEQ/L Potassium Level 3.9 MEQ/L Chloride Level 104 MEQ/L Carbon Dioxide Level 27.3 MEQ/L Anion Gap 7 MEQ/L Blood Urea Nitrogen 12 MG/DL Creatinine 0.80 MG/DL Estimat Glomerular Filtration 70 ML/MIN Rate Random Glucose 379 MG/DL Calcium Level 8.7 MG/DL Magnesium Level 1.7 MG/DL Total Bilirubin 0.7 MG/DL Aspartate Amino Transf 12 U/L (AST/SGOT) Alanine Aminotransferase 15 U/L (ALT/SGPT) Alkaline Phosphatase 75 U/L Total Creatine Kinase 37 U/L Troponin I LESS THAN 0.02 LESS THAN 0.02 NG/ML NG/ML Total Protein 6.4 GM/DL Albumin 3.1 GM/DL Lipase 84 U/L [facility] Medical Record Reviewed: No Supervised Visit with JOLYNN: No Differential Diagnosis Frontal includes coronary artery disease, atypical chest pain Narrative Course EKG she is unchanged from previous EKGs. Her troponins are normal. She is stable for discharge Diagnosis Primary Impression: Atypical chest pain Additional Instruction: Please provide the patient a copy of her chest x-ray results, lab results, and EKG at discharge. Follow-up with your technical engineer and primary physician. Return if symptoms worsen or progress. Disposition: 01 DISCHARGE HOME Condition: Stable Zac Leger MD Jul 11, 2017 19:36
[2017-07-11 20:06] VITALS: BP 102/57
--- NOTE | 2017-07-12 14:44 | EKG ---
Date Performed: 07/11/2017 Time Performed: 15:02:59 PTAGE: 77 years EKG: Sinus rhythm WITH SHORT NV INTERVAL MARKED LEFT AXIS DEVIATION RIGHT BUNDLE BRANCH BLOCK ABNORMAL ECG PREVIOUS TRACING : 04/22/2017 11.11 Since previous tracing, no significant change noted DOCTOR: Matthew Tolentino Interpretating Date/Time 07/12/2017 14:42:37
== END 2017-07-11 20:09 | disposition home or self-care (01) ==
LOC: PHED 14:52
DX: R07.89 Other chest pain (principal); M06.9 Rheumatoid arthritis, unspecified; M79.7 Fibromyalgia; E11.9 Type 2 diabetes mellitus without complications; Z79.4 Long term (current) use of insulin; Z79.899 Other long term (current) drug therapy
CPT/HCPCS: 71010; 80053; 82550; 83690; 83735; 84484; 85025; 85610; 85730; 93005; 96361; 96372; 96374; 96375; 99285; J1815; J2270; J2405; J7040

== ENCOUNTER 2017-07-28 14:39 | Emergency (ER) | payer MEDICARE ==
[~2017-07-28] VITALS: Ht 162.6 cm; Wt 71.8 kg
[~2017-07-28 14:39] MED LIST changes: -CLOP75TA PO; +CYMB30CA PO; -HYDR-3533 PO; -NITR100C4 PO
[2017-07-28 14:56] VITALS: BP 117/61; PULSE 74; RESP 16; TEMP 98.3
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
--- NOTE | 2017-07-28 17:09 | RADRPT ---
EXAM DATE/TIME: 07/28/2017 16:44 [facility] COMPARISON: No previous studies available for comparison. INDICATIONS : Right hip pain. History of right hip injury and surgery. RADIATION DOSE: 29.17 CTDIvol (mGy) MEDICAL HISTORY : Cerebrovascular disease. Congestive heart failure. Cardiovascular diseaseHypertension SURGICAL HISTORY : Coronary artery stent. Cholecystectomy. Hysterectomy.Right hip surgery. ENCOUNTER: Initial ACUITY: 3 days PAIN SCALE: 6/10 LOCATION: Right hip TECHNIQUE: Volumetric scanning of the hip was performed. Using automated exposure control and adjustment of the mA and/or kV according to patient size, radiation dose was kept as low as reasonably achievable to o btain optimal diagnostic quality images. DICOM format image data is available electronically for rev iew and comparison. FINDINGS: Bones are osteopenic with degenerative changes present in the lumbar spine and about both SI joints. There are degenerative changes about the right hip. There is no hip fracture. There is a small join t effusion associated with these degenerative changes. There are mild degenerative changes about the left hip. Diverticula are present in the sigmoid colon without diverticulitis. There is no evidence Garcia so as or iliopsoas abscess. CONCLUSION: Negative for fracture. Osteopenia makes detection of subtle nondisplaced fractures d ifficult. Trace joint effusion on the right. Manish Thornton MD FACR on July 28, 2017 at 17:04 Board Certified Radiologist. This report was verified electronically.
[2017-07-28] MEDS ORDERED: HYDR-3533 PO (17:17)
== END 2017-07-28 17:40 | disposition home or self-care (01) ==
LOC: PHED 14:39
DX: M25.551 Pain in right hip (principal); E11.9 Type 2 diabetes mellitus without complications; H91.90 Unspecified hearing loss, unspecified ear; I11.0 Hypertensive heart disease with heart failure; I25.10 Atherosclerotic heart disease of native coronary artery without angina pectoris; I50.9 Heart failure, unspecified; J44.9 Chronic obstructive pulmonary disease, unspecified; K21.9 Gastro-esophageal reflux disease without esophagitis; M06.9 Rheumatoid arthritis, unspecified; M79.7 Fibromyalgia; M81.0 Age-related osteoporosis without current pathological fracture; Z79.82 Long term (current) use of aspirin; Z86.73 Personal history of transient ischemic attack (TIA), and cerebral infarction without residual deficits; Z90.49 Acquired absence of other specified parts of digestive tract; Z88.0 Allergy status to penicillin; Z95.5 Presence of coronary angioplasty implant and graft; Z87.891 Personal history of nicotine dependence
CPT/HCPCS: 73700

== ENCOUNTER 2017-09-09 14:52 | Emergency (ER) | payer MEDICARE ==
[~2017-09-09] VITALS: Ht 162.6 cm; Wt 69.0 kg
[~2017-09-09 14:52] MED LIST changes: -BENZ1CAP8 PO; -CYMB30CA PO; +HYDR-3533 PO
[2017-09-09 15:23] VITALS: BP 143/66; PULSE 90; RESP 16; TEMP 98.1; O2SAT 96
--- NOTE | 2017-09-09 16:21 | PD ---
HPI Chief Complaint: Abdominal Pain Time Seen by Provider: 16:06 Travel History International Travel<30 days: No Contact w/Intl Traveler<30days: No Traveled to known affect area: No History of Present Illness HPI Patient is a 77-year-old female presents emergency department for complaints of right hip pain radiating down her right leg for the past 4-6 weeks. She is coming by her daughter and states she came in today because pain is getting worse over the past few weeks and is unbearable. She went to a chiropractor continues to have pain. She denies any difficulty urinating, denies any saddle anesthesia, does have pain when she moves or when she walks. She states the ice pack has been helping her though. She went to her primary care physician who wrote her 100 tablets of Ewen and she's been taking these and still having significant pain. She was told that her pain was most likely sciatica but was told also that eventually she may need a stent in her lower extremity. Primary care physician stated that at this point there is no reason to do a stent. Patient describes radicular pain down her right leg, worsens with movement. She states that severe. Waxing and waning. Duration is 4-6 weeks. PFSH Past Medical History Hx Anticoagulant Therapy: Yes (asa 81mg) Arthritis: Yes (RA) Asthma: Yes Autoimmune Disease: Yes Blood Disorders: No Anxiety: Yes Depression: Yes Heart Rhythm Problems: No Cancer: No Cardiac Catheterization: Yes (Multiple Angioplasty last time X 6 stents-LAST CATH June) Cardiovascular Problems: Yes High Cholesterol: Yes Chemotherapy: No Chest Pain: Yes Congestive Heart Failure: Yes COPD: Yes Cerebrovascular Accident: Yes (CVA) Coronary Artery Disease: Yes Diabetes: Yes Patient Takes Glucophage: No Diminished Hearing: Yes ([place]) Diverticulitis: Yes Endocrine: No Fibromyalgia: Yes Gastrointestinal Disorders: Yes (GASTROPARESIS) GERD: Yes Glaucoma: No Genitourinary: No Headaches: Yes Hepatitis: No Hiatal Hernia: Yes Hypertension: Yes Immune Disorder: Yes (FIBROMYALGIA\RA) Kidney Stones: No Musculoskeletal: Yes (osteoporosis,fibromyalgia,spinal stenosis) Neurologic: Yes (hemangioma) Psychiatric: No Reproductive: Yes Respiratory: Yes Migraines: Yes Myocardial Infarction: No Radiation Therapy: No Renal Failure: No Seizures: No Sickle Cell Disease: No Sleep Apnea: Yes Thyroid Disease: Yes Ulcer: No Influenza Vaccination: Yes PNEUMOCCOCAL Vaccine (Year): 2007 Menopausal: Yes Past Surgical History Abdominal Surgery: Yes AICD: No Appendectomy: Yes Body Medical Devices: RIGHT SHOULDER SURGERY, NO JOINT REPLACEMENT. HIP REPLACEMENT REMOVED. Cardiac Surgery: Yes (CARDIAC CATH WITH STENTS) Cholecystectomy: Yes Coronary Artery Bypass Graft: No Coronary Stent: Yes (X2) Endocrine Surgery: No Genitourinary Surgery: Yes Gynecologic Surgery: Yes (HYSTERECTOMY) Hysterectomy: Yes Joint Replacement: Yes (RIGHT HIP/RIGHT KNEE) Neurologic Surgery: No Pacemaker: No Tonsillectomy: Yes Other Surgery: Yes (TONSILLECTOMY, APPENDECTOMY, HYSTERECTOMY, ROTATOR CUFF, GALLBLADDER, L HIP) Social History Alcohol Use: No Tobacco Use: No (QUIT 1989) Substance Use: No Allergies-Medications (Allergen,Severity, Reaction): Coded Allergies: Sulfa (Sulfonamide Antibiotics) (Unverified Allergy, Severe, RASH, ) cephalexin (Unverified Allergy, Severe, RASH, 09/09/17) codeine (Unverified Allergy, Severe, VOMITING, 09/09/17) escitalopram (Unverified Allergy, Severe, 09/09/17) hydroxyzine (Unverified Allergy, Severe, THROAT SWELLING, 09/09/17) metronidazole (Unverified Allergy, Severe, NAUSEA/VOMITING, 09/09/17) penicillin G (Unverified Allergy, Severe, RASH, 09/09/17) pregabalin (Unverified Allergy, Severe, CARDIAC ARRYTHMIAS, 09/09/17) sulfamethoxazole (Unverified Allergy, Severe, RASH (SULFA), 09/09/17) tetanus toxoid, adsorbed (Unverified Allergy, Severe, Rash, 09/09/17) trimethoprim (Unverified Allergy, Severe, RASH (SULFA), 09/09/17) iodine (Unverified Adverse Reaction, Mild, Headache, 09/09/17) metoclopramide (Unverified Adverse Reaction, Mild, Headache, 09/09/17) VOMITING sodium iodide (Unverified Adverse Reaction, Mild, Headache, 09/09/17) sodium iodide (Unverified Adverse Reaction, Mild, Headache, 09/09/17) Uncoded Allergies: SURGICAL STEEL (Allergy, Severe, 07/28/17) . METALS (Allergy, Unknown, Swelling, 07/28/17) . Reported Meds & Prescriptions Reported Meds & Active Scripts Active Flexeril (Cyclobenzaprine HCl) 5 Mg Tab 5 Mg PO TID Lortab (Hydrocodone-Acetaminophen) 5-325 Mg Tab 1 Tab PO Q6H PRN Reported Novolog Flexpen Inj (Insulin Aspart) 300 Unit/3 Ml Pen 20 Units SQ TIDAC Tresiba Flextouch Pen Inj (Insulin Degludec Inj) 300 unit/3 ML Pen 60 Units SQ DAILY Ventolin Hfa 18 GM Inh (Albuterol Sulfate) 90 Mcg/Act Aer 2 Puff INH Q4-6H PRN Crestor (Rosuvastatin Calcium) 40 Mg Tab 40 Mg PO DAILY Synthroid (Levothyroxine Sodium) 50 Mcg Tab 50 Mcg PO DAILY Nitro-Dur Patch 24 HR (Nitroglycerin) 0.1 Mg/Hr Patch 0.1 Mg T-DERMAL DAILY Lorazepam 0.5 Mg Tab 0.5 Mg PO HS PRN Furosemide 40 Mg Tab 40 Mg PO BID Calcium 600 with Vitamin D (Calcium Carbonate-Cholecalciferol) 600-400 mg-Unit Tab 1 Tab PO DAILY Aspirin 325 Mg Tab 325 Mg PO DAILY Review of Systems Except as stated in HPI: all other systems reviewed are Neg Physical Exam Narrative GENERAL: [Well-developed well-nourished no obvious distress. SKIN: Focused skin assessment warm/dry. HEAD: Atraumatic. Normocephalic. EYES: Pupils equal and round. No scleral icterus. No injection or drainage. ENT: No nasal bleeding or discharge. Mucous membranes pink and moist. NECK: Trachea midline. No JVD. CARDIOVASCULAR: Regular rate and rhythm. No murmur appreciated. RESPIRATORY: No accessory muscle use. Clear to auscultation. Breath sounds equal bilaterally. GASTROINTESTINAL: Abdomen soft, non-tender, nondistended. Hepatic and splenic margins not palpable. MUSCULOSKELETAL: No obvious deformities. No clubbing. No cyanosis. No edema. No midline CT or L-spine tenderness. Pelvis stable, nontender, hips nontender. The patient has tenderness to the myofascial point in the right side. Consistent with sciatica. 5 out of 5 strength in all 4 extremities. DTRs are 2 + bilateral equal over the patella and Achilles. Pulses are 2+ bilaterally equal over the dorsalis pedal. There is adequate signs perfusion throughout her lower extremity. NEUROLOGICAL: Awake and alert. No obvious cranial nerve deficits. Motor grossly within normal limits. Normal speech. PSYCHIATRIC: Appropriate mood and affect; insight and judgment normal. Data Data Last Documented VS Vital Signs Date Time Temp Pulse Resp B/P (MAP) Pulse Ox O2 Delivery O2 Flow Rate FiO2 09/09/17 17:32 09/09/17 17:31 72 18 98 Room Air 09/09/17 15:23 98.1 Orders Orders Ketorolac Inj (Toradol Inj) (09/09/17 16:30) Orphenadrine Inj (Norflex Inj) (09/09/17 16:30) Ketorolac Inj (Toradol Inj) (09/09/17 16:30) Ed Discharge Order (09/09/17 17:18) MDM Medical Decision Making Medical Screen Exam Complete: Yes Emergency Medical Condition: Yes Differential Diagnosis Sciatica, claudication unlikely, degenerative disc disease. Narrative Course Patient roomed emergency department, she has a disc with her unfortunate she does not have any readings with her. Her signs symptoms are much more consistent with sciatica rather than an occlusive disorder. She did have ultrasound of the arterial system and the venous system with few weeks ago according to this disc. Also an MRI of her lumbar spine. I discussed with her that she'll need to consider following up with a neurosurgeon. She was given Flexeril Toradol and was ambulatory in the emergency department. Is no indication further emergent workup at this time. She stable for discharge. Discussed return to ED criteria including the criteria for cauda equina syndrome. Diagnosis Primary Impression: Sciatica of right side Referrals: Isrrael Crews MD Additional Instructions: Call your regular physician tomorrow for an appointment this week. If he should have any numbness tingling in your groin area or return to the emergency Department for consideration of emergent surgery. Med/Other Pt SpecificInfo: Prescription(s) given Scripts Cyclobenzaprine (Flexeril) 5 Mg Tab 5 MG PO TID for Muscle Spasm, #20 TAB 0 Refills Prov: Thaddeus Grey MD 09/09/17 Disposition: 01 DISCHARGE HOME Condition: Stable Thaddeus Grey MD Sep 09, 2017 16:21
[2017-09-09] MEDS ORDERED: KETOROLAC TROMETHAMINE 30 MG/ML (IVP) VIAL IV PUSH ONE (16:30)
[2017-09-09] MEDS ORDERED: ORPHENADRINE INJ 60 MG/2 ML AMP IM ONE (16:30)
[2017-09-09] MEDS ORDERED: KETOROLAC TROMETHAMINE 60 MG/2 ML (IM) VIAL IM ONE (16:30)
[2017-09-09] MEDS ORDERED: CYCL5TAB PO (17:18)
[2017-09-09 17:31] VITALS: BP 126/64; PULSE 72; RESP 18; O2SAT 98
== END 2017-09-09 17:36 | disposition home or self-care (01) ==
LOC: PHED 14:52
DX: M54.31 Sciatica, right side (principal)
CPT/HCPCS: 96372; 99284; J1885; J2360

== ENCOUNTER 2017-10-05 22:08 | Emergency (ER) | payer MEDICARE ==
[~2017-10-05] VITALS: Ht 162.6 cm; Wt 69.5 kg
[~2017-10-05 22:08] MED LIST changes: +ASPI-183 PO; -ASPI325T PO; -CYAN1TAB24 IJ; +CYCL5TAB PO; -LORA-373 PO; +LORA0.5T PO
[2017-10-05 22:14] VITALS: BP 172/81; PULSE 99; RESP 18; TEMP 97.8; O2SAT 99
[2017-10-05] MEDS ORDERED: NITR0.2D T-DERMAL (23:57)
[2017-10-06 00:15] VITALS: O2SAT 98
[2017-10-06] MEDS ORDERED: SODIUM CHLORIDE 0.9% FLUSH 10 ML FLUSH IV FLUSH PRN (00:15)
[2017-10-06 00:36] LABS: BLOOD, URINE LARGE (NEG); GLUCOSE,URINE 1000 OR GREATER mg/dL (NEG); KETONE, URINE TRACE mg/dL (NEG); NITRITE,URINE NEG (NEG); PH, URINE 5.5 (5.0-8.5)
[2017-10-06 00:38] LABS: BASOPHIL % 0.4 % (0.0-2.0); EOSINOPHIL % 0.3 % (0.0-4.0); HEMATOCRIT 42.9 % (35.0-46.0); HEMO FLAGS DIFF FINAL; LYMPH % 24.2 % (9.0-44.0); LYMPHOCYTE # 1.8 TH/MM3 (1.0-4.8); MEAN CELL VOLUME 89.8 FL (80.0-100.0); MEAN CORPUSCULAR HEMOGLOBIN 30.2 PG (27.0-34.0); MEAN CORPUSCULAR HGB CONC 33.7 % (32.0-36.0); MONO % 7.1 % (0.0-8.0); PLATELET COUNT 143 TH/MM3 (150-450); RED BLOOD COUNT 4.78 MIL/MM3 (4.00-5.30); RED CELL DISTRIBUTION WIDTH 12.3 % (11.6-17.2); WHITE BLOOD COUNT 7.3 TH/MM3 (4.0-11.0)
[2017-10-06 00:39] LABS: URINE COLOR YELLOW (YELLW/STRAW)
[2017-10-06 00:40] LABS: SQUAMOUS EPITHELIAL CELL URINE 0-5 /hpf (0-5); WBC, URINE 0-2 /hpf (0-5)
[2017-10-06 00:41] LABS: COMMENT (UR) CULT NOT INDICATED; CULTURE IF INDICATED CULT NOT INDICATED
[2017-10-06 00:43] LABS: CHLORIDE 102 MEQ/L (98-107); SODIUM (NA) 137 MEQ/L (136-145)
[2017-10-06 00:46] LABS: ANION GAP 5 MEQ/L (5-15); BICARBONATE 29.6 MEQ/L (21.0-32.0); BLOOD UREA NITROGEN 19 MG/DL (7-18)
[2017-10-06 00:49] LABS: ALT (GPT) 42 U/L (10-53); AST (GOT) 23 U/L (15-37); GLOMERULAR FILTRATION RATE 101 ML/MIN (>89)
[2017-10-06 00:51] LABS: TOTAL BILIRUBIN ADULT 0.4 MG/DL (0.2-1.0)
--- NOTE | 2017-10-06 00:51 | PD ---
HPI Chief Complaint: Pain: Acute or Chronic Time Seen by Provider: 00:03 Travel History International Travel<30 days: No Contact w/Intl Traveler<30days: No Traveled to known affect area: No History of Present Illness HPI 77-year-old female presents to the emergency department for complaint of chronic low back pain and left lower quadrant abdominal pain with noting an episode of some vaginal bleeding/spotting this evening. No dysuria frequency or urgency. Patient does have history of chronic diverticulosis. Patient has had poor GI motility and states she has not had a bowel movement in 2 weeks but has had issues with bowel movements for 6 weeks or greater has been taking hydrocodone and has been on stool softeners with intermittent bowel movements. No melena or hematochezia. Patient's had nausea but no vomiting. Patient is scheduled to have a pain management procedure on Saturday and has been assessed by pain management. Patient states that her hydrocodone is not controlling her pain and presents now for further evaluation. Patient's had no fever or chills. Patient denies chest pain or shortness of breath. PFSH Past Medical History Narrative Medical CAD cardiac catheterization stents diabetes dyslipidemia hypertension arthritis fibromyalgia chronic pain syndrome no tobacco use nursing notes reviewed Hx Anticoagulant Therapy: Yes (asa 81mg) Arthritis: Yes (RA) Asthma: Yes Autoimmune Disease: Yes Blood Disorders: No Anxiety: Yes Depression: Yes Heart Rhythm Problems: No Cancer: No Cardiac Catheterization: Yes (Multiple Angioplasty last time X 6 stents-LAST CATH June) Cardiovascular Problems: Yes High Cholesterol: Yes Chemotherapy: No Chest Pain: Yes Congestive Heart Failure: Yes COPD: Yes Cerebrovascular Accident: Yes (CVA) Coronary Artery Disease: Yes Diabetes: Yes Patient Takes Glucophage: No Diminished Hearing: Yes (ALGAACIQ) Diverticulitis: Yes Endocrine: No Fibromyalgia: Yes Gastrointestinal Disorders: Yes (GASTROPARESIS) GERD: Yes Glaucoma: No Genitourinary: No Headaches: Yes Hepatitis: No Hiatal Hernia: Yes Hypertension: Yes Immune Disorder: Yes (FIBROMYALGIA\RA) Kidney Stones: No Musculoskeletal: Yes (osteoporosis,fibromyalgia,spinal stenosis) Neurologic: Yes (hemangioma) Psychiatric: No Reproductive: Yes Respiratory: Yes Migraines: Yes Myocardial Infarction: No Radiation Therapy: No Renal Failure: No Seizures: No Sickle Cell Disease: No Sleep Apnea: Yes (has a device for night time does not know what it is) Thyroid Disease: Yes Ulcer: No Tetanus Vaccination: > 5 Years Influenza Vaccination: Yes PNEUMOCCOCAL Vaccine (Year): 2007 Menopausal: Yes Past Surgical History Abdominal Surgery: Yes AICD: No Appendectomy: Yes Body Medical Devices: RIGHT SHOULDER SURGERY, NO JOINT REPLACEMENT. HIP REPLACEMENT REMOVED. Cardiac Surgery: Yes (CARDIAC CATH WITH STENTS) Cholecystectomy: Yes Coronary Artery Bypass Graft: No Coronary Stent: Yes (X2) Endocrine Surgery: No Genitourinary Surgery: Yes Gynecologic Surgery: Yes (HYSTERECTOMY) Hysterectomy: Yes Joint Replacement: Yes (RIGHT HIP/RIGHT KNEE) Neurologic Surgery: No Pacemaker: No Tonsillectomy: Yes Other Surgery: Yes (TONSILLECTOMY, APPENDECTOMY, HYSTERECTOMY, ROTATOR CUFF, GALLBLADDER, L HIP) Social History Alcohol Use: No Tobacco Use: No (QUIT 1989) Substance Use: No Allergies-Medications (Allergen,Severity, Reaction): Coded Allergies: Sulfa (Sulfonamide Antibiotics) (Unverified Allergy, Severe, RASH, ) cephalexin (Unverified Allergy, Severe, RASH, 10/05/17) codeine (Unverified Allergy, Severe, VOMITING, 10/05/17) escitalopram (Unverified Allergy, Severe, 10/05/17) hydroxyzine (Unverified Allergy, Severe, THROAT SWELLING, 10/05/17) metronidazole (Unverified Allergy, Severe, NAUSEA/VOMITING, 10/05/17) penicillin G (Unverified Allergy, Severe, RASH, 10/05/17) pregabalin (Unverified Allergy, Severe, CARDIAC ARRYTHMIAS, 10/05/17) sulfamethoxazole (Unverified Allergy, Severe, RASH (SULFA), 10/05/17) tetanus toxoid, adsorbed (Unverified Allergy, Severe, Rash, 10/05/17) trimethoprim (Unverified Allergy, Severe, RASH (SULFA), 10/05/17) iodine (Unverified Adverse Reaction, Mild, Headache, 10/05/17) metoclopramide (Unverified Adverse Reaction, Mild, Headache, 10/05/17) VOMITING sodium iodide (Unverified Adverse Reaction, Mild, Headache, 10/05/17) sodium iodide (Unverified Adverse Reaction, Mild, Headache, 10/05/17) Uncoded Allergies: SURGICAL STEEL (Allergy, Severe, 07/28/17) . METALS (Allergy, Unknown, Swelling, 07/28/17) . Reported Meds & Prescriptions Reported Meds & Active Scripts Active Flexeril (Cyclobenzaprine HCl) 5 Mg Tab 5 Mg PO TID Lortab (Hydrocodone-Acetaminophen) 5-325 Mg Tab 1 Tab PO Q6H PRN Reported Nitro-Dur Patch 24 HR (Nitroglycerin) 0.2 Mg/Hr Patch 0.1 Mg T-DERMAL DAILY Novolog Flexpen Inj (Insulin Aspart) 300 Unit/3 Ml Pen 20 Units SQ TIDAC Tresiba Flextouch Pen Inj (Insulin Degludec Inj) 300 unit/3 ML Pen 60 Units SQ DAILY Ventolin Hfa 18 GM Inh (Albuterol Sulfate) 90 Mcg/Act Aer 2 Puff INH Q4-6H PRN Crestor (Rosuvastatin Calcium) 40 Mg Tab 40 Mg PO DAILY Synthroid (Levothyroxine Sodium) 50 Mcg Tab 50 Mcg PO DAILY Lorazepam 0.5 Mg Tab 0.5 Mg PO HS PRN Furosemide 40 Mg Tab 40 Mg PO BID Calcium 600 with Vitamin D (Calcium Carbonate-Cholecalciferol) 600-400 mg-Unit Tab 1 Tab PO DAILY Aspirin 325 Mg Tab 325 Mg PO DAILY Review of Systems Except as stated in HPI: all other systems reviewed are Neg General / Constitutional: No: Fever HENT: No: Congestion Cardiovascular: No: Chest Pain or Discomfort Respiratory: No: Shortness of Breath Gastrointestinal: Positive: Abdominal Pain Musculoskeletal: Positive: Myalgias, Arthralgias Skin: No Rash Neurologic: No: Weakness Psychiatric: Positive: Anxiety Hematologic/Lymphatic: No: Easy Bruising Physical Exam Narrative GENERAL: Well-developed well-nourished female in no acute distress no respiratory distress SKIN: Warm and dry. HEAD: Normocephalic. EYES: No scleral icterus. No injection or drainage. NECK: Supple, trachea midline. No JVD or lymphadenopathy. CARDIOVASCULAR: Regular rate and rhythm without murmurs, gallops, or rubs. RESPIRATORY: Breath sounds equal bilaterally. No accessory muscle use. GASTROINTESTINAL: Abdomen soft, bilateral lower quadrant tenderness without guarding or rebound no palpable pulsatile mass, nondistended. Pelvic exam normal external exam no redness induration or lesions; speculum exam atrophy without discharge gross blood clots or tissue few small traumatic petechia noted of unclear etiology; bimanual exam no adnexal mass or tenderness no cervical cuff mass or tenderness. Rectal exam: Normal sphincter tone no mass brown stool heme-negative MUSCULOSKELETAL: No cyanosis, or edema. BACK: Nontender without obvious deformity. No CVA tenderness. Data Data Last Documented VS Vital Signs Date Time Temp Pulse Resp B/P (MAP) Pulse Ox O2 Delivery O2 Flow Rate FiO2 10/06/17 03:18 97.9 89 16 136/73 (94) 98 Room Air Orders Orders Complete Blood Count With Diff (10/06/17 00:03) Comprehensive Metabolic Panel (10/06/17 00:03) Lipase (10/06/17 00:03) Urinalysis - C+S If Indicated (10/06/17 00:03) Ct Abd/Pel W Iv Contrast(Rout) (10/06/17 00:03) Iv Access Insert/Monitor (10/06/17 00:03) Ecg Monitoring (10/06/17 00:03) Oximetry (10/06/17 00:03) Sodium Chloride 0.9% Flush (Ns Flush) (10/06/17 00:15) Electrocardiogram (10/06/17 00:03) Iohexol 350 Inj (Omnipaque 350 Inj) (10/06/17 01:14) Ketorolac Inj (Toradol Inj) (10/06/17 02:30) Ondansetron Inj (Zofran Inj) (10/06/17 02:30) Oxycodone-Acetamin 5-325 Mg (Percocet (10/06/17 02:30) Ed Discharge Order (10/06/17 03:07) Labs Laboratory Tests Test 10/06/17 00:24 White Blood Count 7.3 TH/MM3 Red Blood Count 4.78 MIL/MM3 Hemoglobin 14.4 GM/DL Hematocrit 42.9 % Mean Corpuscular Volume 89.8 FL Mean Corpuscular Hemoglobin 30.2 PG Mean Corpuscular Hemoglobin Concent 33.7 % Red Cell Distribution Width 12.3 % Platelet Count 143 TH/MM3 Mean Platelet Volume 11.3 FL Neutrophils (%) (Auto) 68.0 % Lymphocytes (%) (Auto) 24.2 % Monocytes (%) (Auto) 7.1 % Eosinophils (%) (Auto) 0.3 % Basophils (%) (Auto) 0.4 % Neutrophils # (Auto) 5.0 TH/MM3 Lymphocytes # (Auto) 1.8 TH/MM3 Monocytes # (Auto) 0.5 TH/MM3 Eosinophils # (Auto) 0.0 TH/MM3 Basophils # (Auto) 0.0 TH/MM3 CBC Comment DIFF FINAL Differential Comment Urine Color YELLOW Urine Turbidity CLEAR Urine pH 5.5 Urine Specific [place] GREATER THAN 1.035 Urine Protein NEG mg/dL Urine Glucose (UA) 1000 OR GREATER mg/dL Urine Ketones TRACE mg/dL Urine Occult Blood LARGE Urine Nitrite NEG Urine Bilirubin NEG Urine Leukocyte Esterase NEG Urine RBC 4-9 /hpf Urine WBC 0-2 /hpf Urine Squamous Epithelial Cells 0-5 /hpf Urine Bacteria NONE /hpf Microscopic Urinalysis Comment CULT NOT INDICATED Blood Urea Nitrogen 19 MG/DL Creatinine 0.58 MG/DL Random Glucose 262 MG/DL Total Protein 7.3 GM/DL Albumin 3.4 GM/DL Calcium Level 9.1 MG/DL Alkaline Phosphatase 136 U/L Aspartate Amino Transf (AST/SGOT) 23 U/L Alanine Aminotransferase (ALT/SGPT) 42 U/L Total Bilirubin 0.4 MG/DL Sodium Level 137 MEQ/L Potassium Level 4.0 MEQ/L Chloride Level 102 MEQ/L Carbon Dioxide Level 29.6 MEQ/L Anion Gap 5 MEQ/L Estimat Glomerular Filtration Rate 101 ML/MIN Lipase 132 U/L MDM Medical Decision Making Medical Screen Exam Complete: Yes Emergency Medical Condition: Yes Medical Record Reviewed: Yes Interpretation(s) CT abd/pel: FINDINGS: Examination of the lung bases demonstrates no abnormality. No pleural fluid is identified. No pulmonary nodules are present. TheThere is hypodensity within the liver compatible with cyst measuring 5 mm in segment 7. The spleen is normal in size and free of focal defects. The gallbladder is absent. The pancreas demonstrates normal contour without evidence of mass or ductal dilatation. The right adrenal gland is unremarkable. There are simple cysts bilaterally the largest measuring 3 cm in the midpole on the right. Examination of the pelvis demonstrates no evidence of free fluid or pelvic mass. No abnormally enlarged inguinal or retroperitoneal lymph nodes are present. The bladder is unremarkable. There is diverticulosis without evidence of diverticulitis. There is a moderate amount of fecal material throughout the colon. There is a possible cystic lesion involving the right femoral neck. MRI is recommended for further evaluation if clinically indicated. CONCLUSION: 1. No evidence of acute abdominal or pelvic process. No masses are identified. 2. Diverticulosis without evidence of diverticulitis. 3. Constipation 4. Possible cystic lesion right femoral neck. MRI is recommended for further evaluation if clinically indicated. Matthew White MD on October 06, 2017 at 1:35 Board Certified Radiologist. This report was verified electronically. CBC & BMP Diagram 10/06/17 00:24 Total Protein 7.3, Albumin 3.4, Calcium Level 9.1, Alkaline Phosphatase 136 H, Aspartate Amino Transf (AST/SGOT) 23, Alanine Aminotransferase (ALT/SGPT) 42, Total Bilirubin 0.4 Vital Signs Date Time Temp Pulse Resp B/P (MAP) Pulse Ox O2 Delivery O2 Flow Rate FiO2 10/06/17 01:33 97.6 88 20 139/80 (99) 98 Room Air 10/06/17 00:15 98 10/05/17 22:14 97.8 99 18 172/81 (111) 99 UA: glucose; occult blood Differential Diagnosis Musculoskeletal pain, chronic back pain, sciatica, HNP, abdominal pain, diverticulitis, colitis, pelvic mass, bowel obstruction, constipation Narrative Course IV access obtained specimens collected and sent for resulting CT imaging shows no acute intra-abdominal or pelvic abnormality; is noted to have cyst on right femur with recommendation to follow-up with Lab values grossly normal range except for hyperglycemia glucosuria and hematuria Patient informed of lab results given a dose of Toradol 30 mg IV and her Percocet 5/325 Patient stable for outpatient management and follow-up with her primary care provider regarding cyst on the femur recommend follow-up with dough[facility] icer regarding vaginal bleeding recommend follow-up with her pain management doctor as planned [facility] Point of Care Internal Pos. & Neg. Controls: Passed Fecal Specimen Occult Blood: Negative Diagnosis Primary Impression: Musculoskeletal pain Additional Impressions: Postmenopausal atrophic vaginitis Vaginal bleeding Bone cyst, solitary Referrals: [facility] Coord[facility] 2 days Pain Management 3 days Primary Care Physician 2 days Patient Instructions: General Instructions, Narcotic given in the ED Additional Instructions: Increase fluid hydration Add MiraLAX to bowel regimen Continue chronic medications as chronically prescribed Return to the emergency department for any concerns or change in condition Follow diabetic diet closely May take acetaminophen as needed for fever 100.4F or greater Follow-up with [facility] ic[facility] regarding vaginal bleeding; keep pain management appointment as planned; follow-up with primary care provider regarding MRI for bone cyst Med/Other Pt SpecificInfo: No Change to Meds Disposition: 01 DISCHARGE HOME Condition: Stable Adamaris Chowdhury MD Oct 06, 2017 00:51
[2017-10-06 00:52] LABS: ALKALINE PHOSPHATASE 136 U/L (45-117)
[2017-10-06] MEDS ORDERED: IOHEXOL 350 MG/ML 10 ML VIAL (for RAD DIAG) IVCONTRAST ONE (01:14)
[2017-10-06 01:33] VITALS: BP 139/80; PULSE 88; RESP 20; TEMP 97.6; O2SAT 98
--- NOTE | 2017-10-06 01:43 | RADRPT ---
EXAM DATE/TIME: 10/06/2017 01:02 [facility] COMPARISON: CT HIP RIGHT W/O CONTRAST, July 28, 2017, 16:44. INDICATIONS : Lower abdominal pain and constipation x 2 weeks. IV CONTRAST: 85 cc Omnipaque 350 (iohexol) IV ORAL CONTRAST: No oral contrast ingested. RADIATION DOSE: 11.60 CTDIvol (mGy) MEDICAL HISTORY : Cerebrovascular disease. Gastroesophageal reflux disease. Chronic obstructive pulmonary disease.Diabe jennifer. Congestive heart failure. Hypertension. Asthma. Diverticulitis. SURGICAL HISTORY : Coronary artery stent. Cholecystectomy.Appendectomy.Hysterectomy. ENCOUNTER: Initial ACUITY: 2 weeks PAIN SCALE: 9/10 LOCATION: Bilateral lower quadrant TECHNIQUE: Volumetric scanning of the abdomen and pelvis was performed. Using automated exposure control and ad justment of the mA and/or kV according to patient size, radiation dose was kept as low as reasonably achievable to obtain optimal diagnostic quality images. DICOM format image data is available electro nically for review and comparison. FINDINGS: Examination of the lung bases demonstrates no abnormality. No pleural fluid is identified. No pulmona ry nodules are present. TheThere is hypodensity within the liver compatible with cyst measuring 5 mm in segment 7. The spleen is normal in size and free of focal defects. The gallbladder is absent. The pancreas demonstrates normal contour without evidence of mass or ductal dilatation. The right adrenal gland is unremarkable. There are simple cysts bilaterally the largest measuring 3 cm in the midpole on the right. Examination of the pelvis demonstrates no evidence of free fluid or pelvic mass. No abnormally enlarg ed inguinal or retroperitoneal lymph nodes are present. The bladder is unremarkable. There is diverti culosis without evidence of diverticulitis. There is a moderate amount of fecal material throughout t he colon. There is a possible cystic lesion involving the right femoral neck. MRI is recommended for further ev aluation if clinically indicated. CONCLUSION: 1. No evidence of acute abdominal or pelvic process. No masses are identified. 2. Diverticulosis without evidence of diverticulitis. 3. Constipation 4. Possible cystic lesion right femoral neck. MRI is recommended for further evaluation if clinically indicated. Matthew White MD on October 06, 2017 at 1:35 Board Certified Radiologist. This report was verified electronically.
[2017-10-06] MEDS ORDERED: ONDANSETRON HCL 4 MG/2 ML VIAL IV PUSH ONE (02:30)
[2017-10-06] MEDS ORDERED: oxyCODONE/ACETAMINOPHEN 5 MG/325 MG TAB PO ONE (02:30)
[2017-10-06] MEDS ORDERED: KETOROLAC TROMETHAMINE 30 MG/ML (IVP) VIAL IV PUSH ONE (02:30)
[2017-10-06 03:18] VITALS: BP 136/73; PULSE 89; RESP 16; TEMP 97.9; O2SAT 98
--- NOTE | 2017-10-06 13:27 | EKG ---
Date Performed: 10/06/2017 Time Performed: 00:13:08 PTAGE: 77 years EKG: Sinus rhythm RIGHT BUNDLE BRANCH BLOCK ABNORMAL ECG Compared to PREVIOUS TRACING , axis is no longer leftward. PREVIOUS TRACIN07/11/2017 15.02 DOCTOR: David Ruano Interpretating Date/Time 10/06/2017 13:27:15
== END 2017-10-06 03:39 | disposition home or self-care (01) ==
LOC: PHED 22:08
DX: M54.5 Low back pain (principal); N95.2 Postmenopausal atrophic vaginitis; N93.9 Abnormal uterine and vaginal bleeding, unspecified; M85.48 Solitary bone cyst, other site; K59.00 Constipation, unspecified; R94.31 Abnormal electrocardiogram [ECG] [EKG]; E11.9 Type 2 diabetes mellitus without complications; I10 Essential (primary) hypertension; E07.9 Disorder of thyroid, unspecified; E78.00 Pure hypercholesterolemia, unspecified; G47.30 Sleep apnea, unspecified; Z79.4 Long term (current) use of insulin; Z79.82 Long term (current) use of aspirin; Z87.19 Personal history of other diseases of the digestive system; Z87.39 Personal history of other diseases of the musculoskeletal system and connective tissue; Z87.09 Personal history of other diseases of the respiratory system; Z86.59 Personal history of other mental and behavioral disorders; Z86.79 Personal history of other diseases of the circulatory system
CPT/HCPCS: 74177; 80053; 81001; 83690; 85025; 93005; 96374; 96375; 99285; J1885; J2405; Q9967

== ENCOUNTER 2017-11-07 12:38 | Emergency (ER) | payer MEDICARE ==
[~2017-11-07] VITALS: Ht 162.6 cm; Wt 67.0 kg
[~2017-11-07 12:38] MED LIST changes: -NITR0.1D T-DERMAL; +NITR0.2D T-DERMAL
[2017-11-07 12:54] VITALS: BP 152/72; PULSE 82; RESP 16; TEMP 98.2; O2SAT 97
[2017-11-07] MEDS ORDERED: HYDR-3516 PO (13:42)
--- NOTE | 2017-11-07 13:45 | PD ---
HPI Chief Complaint: Complaint Time Seen by Provider: 13:18 Travel History International Travel<30 days: No Contact w/Intl Traveler<30days: No Traveled to known affect area: No History of Present Illness HPI 77yo F with PMH of fibromyalgia, gastroparesis and rheumatoid arthritis presents to the ED with c/o urinary incontinence that started a few hours after her injection 2 days ago. Pt has chronic pain and follows with pain management and had injection of right lower back [address] Sun. She said this has never happen before. Has neuropathy in bilateral lower extremities but no new weakness or numbness. Denies any fever, cough, sob, hematuria, fecal incontinence. Dr. Sun's office call today to follow up on how she is doing and was told to come here for an MRI. Upon review of system, pt also said she has chronic chest pain and abdominal pain. +Nausea. PFSH Past Medical History Hx Anticoagulant Therapy: Yes (asa 81mg) Arthritis: Yes (RA) Asthma: Yes Autoimmune Disease: Yes Blood Disorders: No Anxiety: Yes Depression: Yes Heart Rhythm Problems: No Cancer: No Cardiac Catheterization: Yes (Multiple Angioplasty last time X 6 stents-LAST CATH June) Cardiovascular Problems: Yes (CAD, STENTS, LOOP RECORDER) High Cholesterol: Yes Chemotherapy: No Chest Pain: Yes Congestive Heart Failure: Yes COPD: Yes Cerebrovascular Accident: Yes (CVA) Coronary Artery Disease: Yes Diabetes: Yes (INSULIN DEPENDENT) Patient Takes Glucophage: No Diminished Hearing: Yes ([place]) Diverticulitis: Yes Endocrine: No Fibromyalgia: Yes Gastrointestinal Disorders: Yes (GASTROPARESIS) GERD: Yes Glaucoma: No Genitourinary: No Headaches: Yes Hepatitis: No Hiatal Hernia: Yes Hypertension: Yes Immune Disorder: Yes (FIBROMYALGIA\RA) Kidney Stones: No Musculoskeletal: Yes (osteoporosis,fibromyalgia,spinal stenosis) Neurologic: Yes (hemangioma) Psychiatric: No Reproductive: Yes Respiratory: Yes (COPD) Migraines: Yes Myocardial Infarction: No Radiation Therapy: No Renal Failure: No Seizures: No Sickle Cell Disease: No Sleep Apnea: Yes (has a device for night time does not know what it is) Thyroid Disease: Yes Ulcer: No Influenza Vaccination: Yes PNEUMOCCOCAL Vaccine (Year): 2007 Menopausal: Yes Past Surgical History Abdominal Surgery: Yes AICD: No Appendectomy: Yes Body Medical Devices: RIGHT SHOULDER SURGERY, NO JOINT REPLACEMENT. HIP REPLACEMENT REMOVED. Cardiac Surgery: Yes (CARDIAC CATH WITH STENTS) Cholecystectomy: Yes Coronary Artery Bypass Graft: No Coronary Stent: Yes (X2) Endocrine Surgery: No Genitourinary Surgery: Yes Gynecologic Surgery: Yes (HYSTERECTOMY) Hysterectomy: Yes Joint Replacement: Yes (RIGHT HIP/RIGHT KNEE) Neurologic Surgery: No Pacemaker: No Tonsillectomy: Yes Other Surgery: Yes (TONSILLECTOMY, APPENDECTOMY, HYSTERECTOMY, ROTATOR CUFF, GALLBLADDER, L HIP) Social History Alcohol Use: No Tobacco Use: No (QUIT 1989) Substance Use: No Allergies-Medications (Allergen,Severity, Reaction): Coded Allergies: Sulfa (Sulfonamide Antibiotics) (Unverified Allergy, Severe, RASH, ) cephalexin (Unverified Allergy, Severe, RASH, 11/07/17) codeine (Unverified Allergy, Severe, VOMITING, 11/07/17) escitalopram (Unverified Allergy, Severe, 11/07/17) hydroxyzine (Unverified Allergy, Severe, THROAT SWELLING, 11/07/17) metronidazole (Unverified Allergy, Severe, NAUSEA/VOMITING, 11/07/17) penicillin G (Unverified Allergy, Severe, RASH, 11/07/17) pregabalin (Unverified Allergy, Severe, CARDIAC ARRYTHMIAS, 11/07/17) sulfamethoxazole (Unverified Allergy, Severe, RASH (SULFA), 11/07/17) tetanus toxoid, adsorbed (Unverified Allergy, Severe, Rash, 11/07/17) trimethoprim (Unverified Allergy, Severe, RASH (SULFA), 11/07/17) iodine (Unverified Adverse Reaction, Mild, Headache, 11/07/17) metoclopramide (Unverified Adverse Reaction, Mild, Headache, 11/07/17) VOMITING sodium iodide (Unverified Adverse Reaction, Mild, Headache, 11/07/17) sodium iodide (Unverified Adverse Reaction, Mild, Headache, 11/07/17) Uncoded Allergies: SURGICAL STEEL (Allergy, Severe, 07/28/17) . METALS (Allergy, Unknown, Swelling, 07/28/17) . Reported Meds & Prescriptions Reported Meds & Active Scripts Active Flexeril (Cyclobenzaprine HCl) 5 Mg Tab 5 Mg PO TID Reported Hydrocodone-Acetaminophen 5-325 mg Tab 1 Tab PO Q6H PRN Nitro-Dur Patch 24 HR (Nitroglycerin) 0.2 Mg/Hr Patch 0.1 Mg T-DERMAL DAILY Novolog Flexpen Inj (Insulin Aspart) 300 Unit/3 Ml Pen 20 Units SQ TIDAC Tresiba Flextouch Pen Inj (Insulin Degludec Inj) 300 unit/3 ML Pen 60 Units SQ DAILY Ventolin Hfa 18 GM Inh (Albuterol Sulfate) 90 Mcg/Act Aer 2 Puff INH Q4-6H PRN Crestor (Rosuvastatin Calcium) 40 Mg Tab 40 Mg PO DAILY Synthroid (Levothyroxine Sodium) 50 Mcg Tab 50 Mcg PO DAILY Lorazepam 0.5 Mg Tab 0.5 Mg PO HS PRN Furosemide 40 Mg Tab 40 Mg PO BID Calcium 600 with Vitamin D (Calcium Carbonate-Cholecalciferol) 600-400 mg-Unit Tab 1 Tab PO DAILY Aspirin 325 Mg Tab 325 Mg PO DAILY Review of Systems Except as stated in HPI: all other systems reviewed are Neg Physical Exam Narrative GENERAL: 77yo F in mild distress. SKIN: Focused skin assessment warm/dry. HEAD: Atraumatic. Normocephalic. EYES: Pupils equal and round. No scleral icterus. No injection or drainage. ENT: No nasal bleeding or discharge. Mucous membranes pink and moist. NECK: Trachea midline. No JVD. CARDIOVASCULAR: Regular rate and rhythm. No murmur appreciated. RESPIRATORY: No accessory muscle use. Clear to auscultation. Breath sounds equal bilaterally. GASTROINTESTINAL: Abdomen soft, +TTP RLQ. No rebound tenderness or guarding. MUSCULOSKELETAL: No obvious deformities. No clubbing. No cyanosis. No edema. BACK: +Bandage right paraspinal L5 where the injection was. Mild ttp there. No swelling. No active bleeding. NEUROLOGICAL: Awake and alert. No obvious cranial nerve deficits. Motor grossly within normal limits. Normal speech. Sensation intact. Data Data Last Documented VS Vital Signs Date Time Temp Pulse Resp B/P (MAP) Pulse Ox O2 Delivery O2 Flow Rate FiO2 11/07/17 15:30 85 16 156/76 (102) 99 Room Air 11/07/17 12:54 98.2 Orders Orders Mri L Spine W/O Contrast (11/07/17 ) Complete Blood Count With Diff (11/07/17 13:31) Comprehensive Metabolic Panel (11/07/17 13:31) Troponin I (12/14/17 13:31) Electrocardiogram (11/07/17 ) Chest, Single Ap (11/07/17 ) Ct Abd/Pel W/O Iv Contrast (11/07/17 ) Urinalysis - C+S If Indicated (11/07/17 13:31) Ondansetron Inj (Zofran Inj) (11/07/17 14:30) Acetaminophen (Tylenol) (11/07/17 16:00) Labs Laboratory Tests Test 11/07/17 13:50 White Blood Count 11.0 TH/MM3 Red Blood Count 4.90 MIL/MM3 Hemoglobin 14.4 GM/DL Hematocrit 44.9 % Mean Corpuscular Volume 91.7 FL Mean Corpuscular Hemoglobin 29.4 PG Mean Corpuscular Hemoglobin Concent 32.1 % Red Cell Distribution Width 12.7 % Platelet Count 179 TH/MM3 Mean Platelet Volume 11.5 FL Neutrophils (%) (Auto) 84.9 % Lymphocytes (%) (Auto) 10.2 % Monocytes (%) (Auto) 3.7 % Eosinophils (%) (Auto) 0.0 % Basophils (%) (Auto) 1.2 % Neutrophils # (Auto) 9.4 TH/MM3 Lymphocytes # (Auto) 1.1 TH/MM3 Monocytes # (Auto) 0.4 TH/MM3 Eosinophils # (Auto) 0.0 TH/MM3 Basophils # (Auto) 0.1 TH/MM3 CBC Comment DIFF FINAL Differential Comment Urine Collection Type CLEAN CATCH Urine Color YELLOW Urine Turbidity CLEAR Urine pH 6.0 Urine Specific [place] 1.020 Urine Protein NEG mg/dL Urine Glucose (UA) 1000 OR GREATER mg/dL Urine Ketones 40 mg/dL Urine Occult Blood NEG Urine Nitrite NEG Urine Bilirubin NEG Urine Leukocyte Esterase NEG Urine RBC 0-3 /hpf Urine WBC 3-5 /hpf Urine Squamous Epithelial Cells > 8 /hpf Urine Bacteria OCC /hpf Urine Yeast (Budding) MOD Microscopic Urinalysis Comment CULT NOT INDICATED Urine Collection Time 13:50 Blood Urea Nitrogen 32 MG/DL Creatinine 0.75 MG/DL Random Glucose 304 MG/DL Total Protein 7.4 GM/DL Albumin 3.6 GM/DL Calcium Level 9.2 MG/DL Alkaline Phosphatase 87 U/L Aspartate Amino Transf (AST/SGOT) 12 U/L Alanine Aminotransferase (ALT/SGPT) 23 U/L Total Bilirubin 0.6 MG/DL Sodium Level 137 MEQ/L Potassium Level 4.3 MEQ/L Chloride Level 102 MEQ/L Carbon Dioxide Level 26.9 MEQ/L Anion Gap 8 MEQ/L Estimat Glomerular Filtration Rate 75 ML/MIN Troponin I LESS THAN 0.02 NG/ML MDM Medical Decision Making Medical Screen Exam Complete: Yes Emergency Medical Condition: Yes Interpretation(s) EKG: NSR 75bpm. RBBB. Differential Diagnosis Cauda equina syndrome vs. medication effects vs. UTI vs. chronic abdominal pain vs. appendicitis vs. atypical chest pain Narrative Course 77yo F here mainly because she has new urinary incontinence after her pain injection in her back 2 days ago by pain management. Pt also with chronic chest pain and abdominal pain. Labs reviewed, no leukocytosis. Troponin negative. BUN is mildly elevated, pt tolerating PO now and hydrating orally. Does not want IVF at this time. Chest pain is atypical and pt said she always has chest pain and has multiple work up before. Said it is just a little and chronically there. Glucose elevated at 304. No increased anion gap. UA showed +squamous. Moderate yeast. Pt said she has diflucan at home and can take it. CXR showed chronic interstitial changes. No acute abnormality. CT a/ p showed no acute process. MRI LS showed focal left sided posterolateral disc protrusions at L2-3 and L3-4. No other significant abnormality. Pt given zofran and acetaminophen with improvement of symptoms. Pt has no focal weakness or new numbness. Urinary incontinence may be from medication. Pt to follow up with pain management and primary care physician. Diagnosis Primary Impression: Urinary incontinence Qualified Codes: R32 - Unspecified urinary incontinence Patient Instructions: General Instructions Departure Forms: Tests/Procedures Additional Instructions: Please follow up with your primary care physician and pain management physician as outpatient. Return to the ED if symptoms worsen. Med/Other Pt SpecificInfo: No Change to Meds Disposition: 01 DISCHARGE HOME Condition: Stable Lashae Kurtz DO Nov 07, 2017 13:45
[2017-11-07 14:11] LABS: BLOOD, URINE NEG (NEG); GLUCOSE,URINE 1000 OR GREATER mg/dL (NEG); KETONE, URINE 40 mg/dL (NEG); NITRITE,URINE NEG (NEG)
[2017-11-07 14:14] LABS: AUTOMATED NEUTROPHIL # 9.4 TH/MM3 (1.8-7.7); BASOPHIL # 0.1 TH/MM3 (0-0.2); BASOPHIL % 1.2 % (0.0-2.0); HEMATOCRIT 44.9 % (35.0-46.0); LYMPH % 10.2 % (9.0-44.0); LYMPHOCYTE # 1.1 TH/MM3 (1.0-4.8); MEAN CELL VOLUME 91.7 FL (80.0-100.0); MEAN CORPUSCULAR HEMOGLOBIN 29.4 PG (27.0-34.0); MEAN CORPUSCULAR HGB CONC 32.1 % (32.0-36.0); MONO % 3.7 % (0.0-8.0); NEUT % 84.9 % (16.0-70.0); PLATELET COUNT 179 TH/MM3 (150-450); RED CELL DISTRIBUTION WIDTH 12.7 % (11.6-17.2)
--- NOTE | 2017-11-07 14:15 | RADRPT ---
EXAM DATE/TIME: 11/07/2017 13:45 [facility] COMPARISON: CHEST SINGLE AP, July 11, 2017, 15:19. INDICATIONS : Chest pain for one week. MEDICAL HISTORY : Cerebrovascular disease. Gastroesophageal reflux disease. Chronic obstructive pulmonary disease.Diabe jennifer. Congestive heart failure. Hypertension. Asthma. Diverticulitis SURGICAL HISTORY : Coronary artery stent. Cholecystectomy.Appendectomy.Hysterectomy ENCOUNTER: Initial ACUITY: 1 week PAIN SCORE: 3/10 LOCATION: Bilateral chest FINDINGS: There is minimal atelectatic change at the left lung base. There are chronic interstitial changes thr oughout both lungs. The heart is normal in size. There is a loop recorder present. The visualized bony structures are grossly intact. CONCLUSION: 1. Chronic interstitial changes. No acute abnormality. 2. Stable compared to previous dated 07/11/70 Ernesto Thornton MD on November 07, 2017 at 14:10 Board Certified Radiologist. This report was verified electronically.
[2017-11-07 14:16] VITALS: BP 147/69; PULSE 79; RESP 16; O2SAT 100
[2017-11-07 14:18] LABS: HEMO FLAGS DIFF FINAL
[2017-11-07 14:20] LABS: METHOD OF COLLECTION CLEAN CATCH; URINE COLOR YELLOW (YELLW/STRAW)
[2017-11-07 14:21] LABS: BACTERIA, URINE OCC /hpf; COMMENT (UR) CULT NOT INDICATED; CULTURE IF INDICATED CULT NOT INDICATED; RBC, URINE 0-3 /hpf (0-3); SQUAMOUS EPITHELIAL CELL URINE > 8 /hpf (0-5)
[2017-11-07 14:23] LABS: CHLORIDE 102 MEQ/L (98-107); POTASSIUM 4.3 MEQ/L (3.5-5.1); SODIUM (NA) 137 MEQ/L (136-145)
[2017-11-07 14:27] LABS: ANION GAP 8 MEQ/L (5-15); BICARBONATE 26.9 MEQ/L (21.0-32.0); BLOOD UREA NITROGEN 32 MG/DL (7-18)
[2017-11-07 14:30] LABS: ALT (GPT) 23 U/L (10-53); AST (GOT) 12 U/L (15-37)
[2017-11-07] MEDS ORDERED: ONDANSETRON HCL 4 MG/2 ML VIAL IV PUSH ONE (14:30)
[2017-11-07 14:31] LABS: GLOMERULAR FILTRATION RATE 75 ML/MIN (>89)
[2017-11-07 14:32] LABS: TOTAL BILIRUBIN ADULT 0.6 MG/DL (0.2-1.0)
[2017-11-07 14:33] LABS: ALKALINE PHOSPHATASE 87 U/L (45-117)
--- NOTE | 2017-11-07 14:42 | RADRPT ---
EXAM DATE/TIME: 11/07/2017 13:58 [facility] COMPARISON: CT ABDOMEN & PELVIS W/O CONTRAST, May 27, 2015, 19:53. INDICATIONS : Right lower quadrant pain. Incontinence. ORAL CONTRAST: No oral contrast ingested. RADIATION DOSE: 13.47 CTDIvol (mGy) MEDICAL HISTORY : Gastroesophageal reflux disease. Chronic obstructive pulmonary disease. Cerebrovascular disease.Conge stive heart failure. Diabetes. Diverticulitis. Hiatal hernia. SURGICAL HISTORY : Appendectomy. Coronary artery stent.Cholecystectomy.Hysterectomy. ENCOUNTER: Initial ACUITY: 2 days PAIN SCALE: 8/10 LOCATION: Right lower quadrant TECHNIQUE: Volumetric scanning of the abdomen and pelvis was performed. Using automated exposure control and ad justment of the mA and/or kV according to patient size, radiation dose was kept as low as reasonably achievable to obtain optimal diagnostic quality images. DICOM format image data is available electro nically for review and comparison. FINDINGS: LOWER LUNGS: The visualized lower lungs are clear. LIVER: Homogeneous density without lesion. There is no dilation of the biliary tree. Post cholecystectomy c lips are noted. SPLEEN: Normal size without lesion. PANCREAS: Within normal limits. KIDNEYS: Small hyperdense nodule in the upper pole the right kidney and a simple right renal cyst are stable c ompared to previous study in 2015. There are no suspicious renal abnormalities. There is no evidence of hydronephrosis. ADRENAL GLANDS: Within normal limits. VASCULAR: There is no aortic aneurysm. BOWEL/MESENTERY: Multiple diverticular seen throughout the colon. There are no active inflammatory changes. There is n o evidence of ileus, free air or abnormal fluid collections. ABDOMINAL WALL: Within normal limits. RETROPERITONEUM: There is no lymphadenopathy. BLADDER: No wall thickening or mass. REPRODUCTIVE: Uterus has been removed. INGUINAL: There is no lymphadenopathy or hernia. MUSCULOSKELETAL: Within normal limits for patient age. CONCLUSION: 1. Status post cholecystectomy and hysterectomy. 2. Uncomplicated diverticulosis. 3. No acute process. Mirza Estrella MD on November 07, 2017 at 14:34 Board Certified Radiologist. This report was verified electronically.
[2017-11-07 15:30] VITALS: BP 156/76; PULSE 85; RESP 16; O2SAT 99
[2017-11-07] MEDS ORDERED: ACETAMINOPHEN 325 MG TAB PO ONE (16:00)
--- NOTE | 2017-11-07 16:13 | RADRPT ---
EXAM DATE/TIME: 11/07/2017 15:17 [facility] COMPARISON: No previous studies available for comparison. INDICATIONS : Pain. Urinary incontinence. MEDICAL HISTORY : Diabetes mellitus type 2. Chronic obstructive pulmonary disease. Cardiovascular disease. Fibromyalgia . SURGICAL HISTORY : Coronary artery stent. Appendectomy. Cholecystectomy. Loop recorder, right hip, hysterectomy, and rot ator cuff. ENCOUNTER: Initial ACUITY: 1 day PAIN SCORE: 8/10 LOCATION: Back. TECHNIQUE: Multiplanar multisequence MRI of the lumbar spine was performed without contrast. FINDINGS: The most caudal appearing lumbar vertebra is numbered as L5. VERTEBRAE: Homogeneous signal. Normal alignment. CONUS: Normal level and configuration. T12-L1: The thecal sac has a normal diameter. No evidence of disc bulge or protrusion. The neural foramina are patent bilaterally. L1-L2: The thecal sac has a normal diameter. No evidence of disc bulge or protrusion. The neural foramina are patent bilaterally. L2-L3: A mild left posterolateral disc protrusion is noted. There is no significant epidural or neural karoline inal mass effect. L3-L4: A moderate focal disc protrusion is noted along the left posterolateral disc margin. Mild foraminal e ffacement is noted. There is no significant epidural mass effect. L4-L5: The thecal sac has a normal diameter. No evidence of disc bulge or protrusion. The neural foramina are patent bilaterally. L5-S1: The thecal sac has a normal diameter. No evidence of disc bulge or protrusion. The neural foramina are patent bilaterally. CONCLUSION: 1. Focal left-sided posterolateral disc protrusions at L2-3 and L3-4. 2. No other significant abnormality. Mirza Estrella MD on November 07, 2017 at 16:05 Board Certified Radiologist. This report was verified electronically.
[2017-11-07 16:53] VITALS: RESP 17
[2017-11-07 17:06] VITALS: BP 150/80
--- NOTE | 2017-11-09 12:21 | EKG ---
Date Performed: 11/07/2017 Time Performed: 13:42:46 PTAGE: 77 years EKG: Sinus rhythm RIGHT BUNDLE BRANCH BLOCK ABNORMAL ECG PREVIOUS TRACING : 10/06/2017 00.13 DOCTOR: Klaus Silvestre Interpretating Date/Time 11/09/2017 12:19:50
== END 2017-11-07 17:10 | disposition home or self-care (01) ==
LOC: PHED 12:38
DX: R32 Unspecified urinary incontinence (principal); E11.43 Type 2 diabetes mellitus with diabetic autonomic (poly)neuropathy; K31.84 Gastroparesis; E78.00 Pure hypercholesterolemia, unspecified; I11.0 Hypertensive heart disease with heart failure; I50.9 Heart failure, unspecified; I25.10 Atherosclerotic heart disease of native coronary artery without angina pectoris; M06.9 Rheumatoid arthritis, unspecified; M79.7 Fibromyalgia; G89.29 Other chronic pain; R07.89 Other chest pain; Z79.4 Long term (current) use of insulin; Z79.82 Long term (current) use of aspirin; Z87.891 Personal history of nicotine dependence
CPT/HCPCS: 71010; 72148; 74176; 80053; 81001; 84484; 85025; 93005; 96374; 99285; J2405

== ENCOUNTER 2018-02-04 21:05 | Emergency (ER) | payer MEDICARE ==
[~2018-02-04] VITALS: Ht 162.6 cm; Wt 65.2 kg
[~2018-02-04 21:05] MED LIST changes: +HYDR-3516 PO; -HYDR-3533 PO
[2018-02-04 21:12] VITALS: BP 149/70; PULSE 89; RESP 18; TEMP 97.6; O2SAT 96
[2018-02-04 21:40] VITALS: BP 149/70; PULSE 89; RESP 16; TEMP 97.6; O2SAT 96
[2018-02-04] MEDS ORDERED: LIDOCAINE HCL 1% 20 ML VIAL INFIL ONE (21:45)
--- NOTE | 2018-02-04 22:44 | PD ---
HPI Chief Complaint: Laceration/Skin Injury Time Seen by Provider: 21:20 Travel History International Travel<30 days: No Contact w/Intl Traveler<30days: No Traveled to known affect area: No History of Present Illness HPI 77-year-old female that presents to the ED for evaluation of laceration to her left mendez. Patient suffered a laceration after her dog stepped on her leg trying to get out of the bed. Patient has 3 lacerations to her leg. Denies any other injuries. She does have multiple allergies to different medication she is concerned mostly about infection. She is concerned about possible suturing. Patient denies any numbness, tilling, weakness. She does have chronic pain secondary to multiple disorders. She takes morphine at home. Denies any other injuries. No falls. Per patient she cannot get tetanus secondary to allergies to it. Pain per patient is 2 out of 10. PFSH Past Medical History Hx Anticoagulant Therapy: Yes (asa 81mg) Arthritis: Yes (RA) Asthma: Yes Autoimmune Disease: Yes Blood Disorders: No Anxiety: Yes Depression: Yes Heart Rhythm Problems: No Cancer: No Cardiac Catheterization: Yes (Multiple Angioplasty last time X 6 stents-LAST CATH June) Cardiovascular Problems: Yes (CAD, STENTS, LOOP RECORDER) High Cholesterol: Yes Chemotherapy: No Chest Pain: Yes Congestive Heart Failure: Yes COPD: Yes Cerebrovascular Accident: Yes (CVA) Coronary Artery Disease: Yes Diabetes: Yes (INSULIN DEPENDENT) Patient Takes Glucophage: No Diminished Hearing: Yes ([place]) Diverticulitis: Yes Endocrine: No Fibromyalgia: Yes Gastrointestinal Disorders: Yes (GASTROPARESIS) GERD: Yes Glaucoma: No Genitourinary: No Headaches: Yes Hepatitis: No Hiatal Hernia: Yes Hypertension: Yes Immune Disorder: Yes (FIBROMYALGIA\RA) Kidney Stones: No Musculoskeletal: Yes (osteoporosis,fibromyalgia,spinal stenosis) Neurologic: Yes (hemangioma) Psychiatric: No Reproductive: Yes Respiratory: Yes (COPD) Migraines: Yes Myocardial Infarction: No Radiation Therapy: No Renal Failure: No Seizures: No Sickle Cell Disease: No Sleep Apnea: Yes (has a device for night time does not know what it is) Thyroid Disease: Yes Ulcer: No Influenza Vaccination: Yes PNEUMOCCOCAL Vaccine (Year): 2007 ?: Not Menopausal: Yes Past Surgical History Abdominal Surgery: Yes AICD: No Appendectomy: Yes Body Medical Devices: RIGHT SHOULDER SURGERY, NO JOINT REPLACEMENT. HIP REPLACEMENT REMOVED. Cardiac Surgery: Yes (CARDIAC CATH WITH STENTS) Cholecystectomy: Yes Coronary Artery Bypass Graft: No Coronary Stent: Yes (X2) Endocrine Surgery: No Genitourinary Surgery: Yes Gynecologic Surgery: Yes (HYSTERECTOMY) Hysterectomy: Yes Joint Replacement: Yes (RIGHT HIP/RIGHT KNEE) Neurologic Surgery: No Pacemaker: No Tonsillectomy: Yes Other Surgery: Yes (TONSILLECTOMY, APPENDECTOMY, HYSTERECTOMY, ROTATOR CUFF, GALLBLADDER, L HIP) Social History Alcohol Use: No Tobacco Use: No (QUIT 1989) Substance Use: No Allergies-Medications (Allergen,Severity, Reaction): Coded Allergies: Sulfa (Sulfonamide Antibiotics) (Verified Allergy, Severe, RASH, 02/04/18) cephalexin (Verified Allergy, Severe, RASH, 02/04/18) codeine (Verified Allergy, Severe, VOMITING, 02/04/18) escitalopram (Verified Allergy, Severe, 02/04/18) hydroxyzine (Verified Allergy, Severe, THROAT SWELLING, 02/04/18) metronidazole (Verified Allergy, Severe, NAUSEA/VOMITING, 02/04/18) penicillin G (Verified Allergy, Severe, RASH, 02/04/18) pregabalin (Verified Allergy, Severe, CARDIAC ARRYTHMIAS, 02/04/18) sulfamethoxazole (Verified Allergy, Severe, RASH (SULFA), 02/04/18) tetanus toxoid, adsorbed (Verified Allergy, Severe, Rash, 02/04/18) trimethoprim (Verified Allergy, Severe, RASH (SULFA), 02/04/18) iodine (Verified Adverse Reaction, Mild, Headache, 02/04/18) metoclopramide (Verified Adverse Reaction, Mild, Headache, 02/04/18) VOMITING sodium iodide (Verified Adverse Reaction, Mild, Headache, 02/04/18) sodium iodide (Verified Adverse Reaction, Mild, Headache, 02/04/18) Uncoded Allergies: SURGICAL STEEL (Allergy, Severe, 07/28/17) . METALS (Allergy, Unknown, Swelling, 07/28/17) . Reported Meds & Prescriptions Reported Meds & Active Scripts Active Flexeril (Cyclobenzaprine HCl) 5 Mg Tab 5 Mg PO TID Reported Hydrocodone-Acetaminophen 5-325 mg Tab 1 Tab PO Q6H PRN Nitro-Dur Patch 24 HR (Nitroglycerin) 0.2 Mg/Hr Patch 0.1 Mg T-DERMAL DAILY Novolog Flexpen Inj (Insulin Aspart) 300 Unit/3 Ml Pen 20 Units SQ TIDAC Tresiba Flextouch Pen Inj (Insulin Degludec Inj) 300 unit/3 ML Pen 60 Units SQ DAILY Ventolin Hfa 18 GM Inh (Albuterol Sulfate) 90 Mcg/Act Aer 2 Puff INH Q4-6H PRN Crestor (Rosuvastatin Calcium) 40 Mg Tab 40 Mg PO DAILY Synthroid (Levothyroxine Sodium) 50 Mcg Tab 50 Mcg PO DAILY Lorazepam 0.5 Mg Tab 0.5 Mg PO HS PRN Furosemide 40 Mg Tab 40 Mg PO BID Calcium 600 with Vitamin D (Calcium Carbonate-Cholecalciferol) 600-400 mg-Unit Tab 1 Tab PO DAILY Aspirin 325 Mg Tab 325 Mg PO DAILY Review of Systems Except as stated in HPI: all other systems reviewed are Neg Physical Exam Narrative GENERAL: SKIN: Warm and dry. HEAD: Atraumatic. Normocephalic. EYES: Pupils equal and round. No scleral icterus. No injection or drainage. ENT: No nasal bleeding or discharge. Mucous membranes pink and moist. NECK: Trachea midline. No JVD. CARDIOVASCULAR: Regular rate and rhythm. RESPIRATORY: No accessory muscle use. Clear to auscultation. Breath sounds equal bilaterally. GASTROINTESTINAL: Abdomen soft, non-tender, nondistended. Hepatic and splenic margins not palpable. MUSCULOSKELETAL: Extremities without clubbing, cyanosis, or edema. No obvious deformities. Patient has 2 superficial lacerations to the left mendez. The largest one is about 3 cm on the left mendez. Patient has 2 other lacerations were about 2 cm and they are less than 1 mm deep. Largest laceration is about half a centimeter deep. Well approximated. Some bleeding noted from the larger one. No other lacerations noted. 2+ pulses bilaterally. No foreign body noted. NEUROLOGICAL: Awake and alert. No obvious cranial nerve deficits. Motor grossly within normal limits. Five out of 5 muscle strength in the arms and legs. Normal speech. PSYCHIATRIC: Appropriate mood and affect; insight and judgment normal. Data Data Last Documented VS Vital Signs Date Time Temp Pulse Resp B/P (MAP) Pulse Ox O2 Delivery O2 Flow Rate FiO2 02/04/18 21:40 97.6 89 16 149/70 (96) 96 Orders Orders Wound Care (02/04/18 21:27) Lidocaine 1% Inj (Xylocaine 1% Inj) (02/04/18 21:45) Ed Discharge Order (02/04/18 22:38) [facility] Medical Decision Making Medical Screen Exam Complete: Yes Emergency Medical Condition: Yes Medical Record Reviewed: Yes Differential Diagnosis Laceration versus abrasion versus skin tear versus dog scratch Narrative Course 77-year-old female that presents to the ED for evaluation of laceration to the left mendez. Patient was properly examined and was found to have signs and symptoms consistent appears to be laceration. At this time recommendations is for suturing for the bigger laceration. Otherwise appear to be very small and will not require any suturing. Please refer to my procedure note. Patient was told to get sutures removed in 2 weeks. Follow with PCP. See ED worsening symptoms. Procedures Procedure Narrative LACERATION LOCATION: left mendez LENGTH: 3 cm NUMBER OF STITCHES/SUSAN: 4 sutures REPAIR: The area of the laceration was prepped with Betadine and sterilely draped. The laceration was infiltrated with 1% Xylocaine. The wound was copiously irrigated and explored without evidence of foreign body, tendon injury or neurovascular injury. The wound was closed using 4-0 Prolene. This was a 1 layer repair. A sterile dressing was applied. The patient was advised to keep the dressing clean and dry. Patient tolerated the procedure well. Diagnosis Primary Impression: Leg laceration Qualified Codes: S81.812A - Laceration without foreign body, left lower leg, initial encounter Patient Instructions: General Instructions Additional Instructions: Wound care daily with soap and water. You can apply bandaid if needed. Neosporyn or OTC antibiotic ointment to area as needed twice a day for at least 2 weeks to help with scarring and prevent infection. Meoderma OTC for scarring if needed. Avoid sun exposure for 2 months as the sun could make scar darker and more noticeable. Get sutures removed in 14 days. See ED if worst. Med/Other Pt SpecificInfo: Prescription(s) given Disposition: 01 DISCHARGE HOME Condition: Joss Hernández Feb 04, 2018 22:44
== END 2018-02-04 23:05 | disposition home or self-care (01) ==
LOC: PHEFT 21:05
DX: S81.812A Laceration without foreign body, left lower leg, initial encounter (principal); M06.9 Rheumatoid arthritis, unspecified; E11.9 Type 2 diabetes mellitus without complications; J44.9 Chronic obstructive pulmonary disease, unspecified; W45.8XXA Other foreign body or object entering through skin, initial encounter; Y92.003 Bedroom of unspecified non-institutional (private) residence as the place of occurrence of the external cause; Z79.4 Long term (current) use of insulin; Z79.82 Long term (current) use of aspirin
CPT/HCPCS: 12002

== ENCOUNTER 2018-02-21 11:08 | Emergency (ER) | payer MEDICARE ==
[~2018-02-21] VITALS: Ht 162.6 cm; Wt 62.0 kg
[2018-02-21 11:54] VITALS: BP 158/83; PULSE 97; RESP 16; TEMP 99; O2SAT 99
[2018-02-21] MEDS ORDERED: SODIUM CHLOR 0.9% 1000 ML INJ 1,000 ML IV ONE (15:30)
[2018-02-21] MEDS ORDERED: MORPHINE SULFATE 4 MG/ML INJ IV PUSH ONE (15:30)
[2018-02-21] MEDS ORDERED: ONDANSETRON HCL 4 MG/2 ML VIAL IVP ONE (15:30)
--- NOTE | 2018-02-21 15:30 | PD ---
HPI Chief Complaint: GI Complaint Time Seen by Provider: 15:13 Travel History International Travel<30 days: No Contact w/Intl Traveler<30days: No Traveled to known affect area: No History of Present Illness HPI This patient complains of nausea vomiting diarrhea. Duration 3-4 days. She feels dehydrated. She is a chronic pain patient taking morphine twice daily and has not kept her medication down recently. She wants pain medication. She denies fever. No alleviating factors. Symptoms are exacerbated by her vomiting and diarrhea PFSH Past Medical History Hx Anticoagulant Therapy: Yes (asa 81mg) Arthritis: Yes (RA) Asthma: Yes Autoimmune Disease: Yes Blood Disorders: No Anxiety: Yes Depression: Yes Heart Rhythm Problems: No Cancer: No Cardiac Catheterization: Yes (Multiple Angioplasty last time X 6 stents-LAST CATH June) Cardiovascular Problems: Yes (CAD, STENTS, LOOP RECORDER) High Cholesterol: Yes Chemotherapy: No Chest Pain: Yes Congestive Heart Failure: Yes COPD: Yes Cerebrovascular Accident: Yes (CVA) Coronary Artery Disease: Yes Diabetes: Yes (INSULIN DEPENDENT) Patient Takes Glucophage: No Diminished Hearing: Yes ([place]) Diverticulitis: Yes Endocrine: No Fibromyalgia: Yes Gastrointestinal Disorders: Yes (GASTROPARESIS) GERD: Yes Glaucoma: No Genitourinary: No Headaches: Yes Hepatitis: No Hiatal Hernia: Yes Hypertension: Yes Immune Disorder: Yes (FIBROMYALGIA\RA) Kidney Stones: No Musculoskeletal: Yes (osteoporosis,fibromyalgia,spinal stenosis) Neurologic: Yes (hemangioma) Psychiatric: No Reproductive: Yes Respiratory: Yes (COPD) Migraines: Yes Myocardial Infarction: No Radiation Therapy: No Renal Failure: No Seizures: No Sickle Cell Disease: No Sleep Apnea: Yes (has a device for night time does not know what it is) Thyroid Disease: Yes Ulcer: No PNEUMOCCOCAL Vaccine (Year): 2007 Menopausal: Yes Past Surgical History Abdominal Surgery: Yes AICD: No Appendectomy: Yes Body Medical Devices: RIGHT SHOULDER SURGERY, NO JOINT REPLACEMENT. HIP REPLACEMENT REMOVED. Cardiac Surgery: Yes (CARDIAC CATH WITH STENTS) Cholecystectomy: Yes Coronary Artery Bypass Graft: No Coronary Stent: Yes (X2) Endocrine Surgery: No Genitourinary Surgery: Yes Gynecologic Surgery: Yes (HYSTERECTOMY) Hysterectomy: Yes Joint Replacement: Yes (RIGHT HIP/RIGHT KNEE) Neurologic Surgery: No Pacemaker: No Tonsillectomy: Yes Other Surgery: Yes (TONSILLECTOMY, APPENDECTOMY, HYSTERECTOMY, ROTATOR CUFF, GALLBLADDER, L HIP) Social History Alcohol Use: No Tobacco Use: No (QUIT 1989) Substance Use: No Allergies-Medications (Allergen,Severity, Reaction): Coded Allergies: Sulfa (Sulfonamide Antibiotics) (Verified Allergy, Severe, RASH, 02/21/18) cephalexin (Verified Allergy, Severe, RASH, 02/21/18) codeine (Verified Allergy, Severe, VOMITING, 02/21/18) escitalopram (Verified Allergy, Severe, 02/21/18) hydroxyzine (Verified Allergy, Severe, THROAT SWELLING, 02/21/18) metronidazole (Verified Allergy, Severe, NAUSEA/VOMITING, 02/21/18) penicillin G (Verified Allergy, Severe, RASH, 02/21/18) pregabalin (Verified Allergy, Severe, CARDIAC ARRYTHMIAS, 02/21/18) sulfamethoxazole (Verified Allergy, Severe, RASH (SULFA), 02/21/18) tetanus toxoid, adsorbed (Verified Allergy, Severe, Rash, 02/21/18) trimethoprim (Verified Allergy, Severe, RASH (SULFA), 02/21/18) iodine (Verified Adverse Reaction, Mild, Headache, 02/21/18) metoclopramide (Verified Adverse Reaction, Mild, Headache, 02/21/18) VOMITING sodium iodide (Verified Adverse Reaction, Mild, Headache, 02/21/18) sodium iodide (Verified Adverse Reaction, Mild, Headache, 02/21/18) Uncoded Allergies: SURGICAL STEEL (Allergy, Severe, 07/28/17) . METALS (Allergy, Unknown, Swelling, 07/28/17) . Reported Meds & Prescriptions Reported Meds & Active Scripts Active Zofran Odt (Ondansetron Odt) 4 Mg Tab 4 Mg SL Q6HR PRN Flexeril (Cyclobenzaprine HCl) 5 Mg Tab 5 Mg PO TID Reported Hydrocodone-Acetaminophen 5-325 mg Tab 1 Tab PO Q6H PRN Nitro-Dur Patch 24 HR (Nitroglycerin) 0.2 Mg/Hr Patch 0.1 Mg T-DERMAL DAILY Novolog Flexpen Inj (Insulin Aspart) 300 Unit/3 Ml Pen 20 Units SQ TIDAC Tresiba Flextouch Pen Inj (Insulin Degludec Inj) 300 unit/3 ML Pen 60 Units SQ DAILY Ventolin Hfa 18 GM Inh (Albuterol Sulfate) 90 Mcg/Act Aer 2 Puff INH Q4-6H PRN Crestor (Rosuvastatin Calcium) 40 Mg Tab 40 Mg PO DAILY Synthroid (Levothyroxine Sodium) 50 Mcg Tab 50 Mcg PO DAILY Lorazepam 0.5 Mg Tab 0.5 Mg PO HS PRN Furosemide 40 Mg Tab 40 Mg PO BID Calcium 600 with Vitamin D (Calcium Carbonate-Cholecalciferol) 600-400 mg-Unit Tab 1 Tab PO DAILY Aspirin 325 Mg Tab 325 Mg PO DAILY Review of Systems General / Constitutional: No: Fever Eyes: No: Visual changes HENT: No: Headaches Cardiovascular: No: Chest Pain or Discomfort Respiratory: No: Shortness of Breath Gastrointestinal: Positive: Nausea, Vomiting, Diarrhea, No: Abdominal Pain Genitourinary: No: Dysuria Musculoskeletal: Positive: Pain Skin: No Rash Neurologic: No: Weakness Psychiatric: No: Depression Endocrine: No: Polydipsia Hematologic/Lymphatic: No: Easy Bruising Physical Exam Narrative GENERAL: Well-nourished, well-developed patient with back pain and nausea. SKIN: Focused skin assessment reveals no rash and nodules. Skin is Warm and dry. HEAD: Atraumatic. Normocephalic. EYES: Pupils equal and round. No scleral icterus. No injection or drainage. ENT: No nasal bleeding or discharge. Mucous membranes pink and moist. NECK: Trachea midline. No JVD. CARDIOVASCULAR: Regular rate and rhythm. No murmur appreciated. RESPIRATORY: No accessory muscle use. Clear to auscultation. Breath sounds equal bilaterally. GASTROINTESTINAL: Abdomen soft, non-tender, nondistended. Hepatic and splenic margins not palpable. MUSCULOSKELETAL: No obvious deformities. No clubbing. No cyanosis. No edema. NEUROLOGICAL: Awake and alert. No obvious cranial nerve deficits. Motor grossly within normal limits. Normal speech. PSYCHIATRIC: Appropriate mood and affect; insight and judgment normal. Data Data Last Documented VS Vital Signs Date Time Temp Pulse Resp B/P (MAP) Pulse Ox O2 Delivery O2 Flow Rate FiO2 02/21/18 16:25 92 14 158/66 (96) 95 Room Air 02/21/18 11:54 99.0 Orders Orders Ondansetron Inj (Zofran Inj) (02/21/18 15:30) Sodium Chlor 0.9% 1000 Ml Inj (Ns 1000 M (02/21/18 15:30) Morphine Inj (Morphine Inj) (02/21/18 15:30) Iv Access Insert/Monitor (02/21/18 15:20) Complete Blood Count With Diff (02/21/18 15:20) Basic Metabolic Panel (Bmp) (02/21/18 15:20) Labs Laboratory Tests Test 02/21/18 15:45 White Blood Count 9.3 TH/MM3 Red Blood Count 5.35 MIL/MM3 Hemoglobin 16.6 GM/DL Hematocrit 48.2 % Mean Corpuscular Volume 90.1 FL Mean Corpuscular Hemoglobin 31.0 PG Mean Corpuscular Hemoglobin Concent 34.4 % Red Cell Distribution Width 11.8 % Platelet Count 149 TH/MM3 Mean Platelet Volume 11.0 FL Neutrophils (%) (Auto) 79.7 % Lymphocytes (%) (Auto) 15.4 % Monocytes (%) (Auto) 4.4 % Eosinophils (%) (Auto) 0.0 % Basophils (%) (Auto) 0.5 % Neutrophils # (Auto) 7.5 TH/MM3 Lymphocytes # (Auto) 1.4 TH/MM3 Monocytes # (Auto) 0.4 TH/MM3 Eosinophils # (Auto) 0.0 TH/MM3 Basophils # (Auto) 0.0 TH/MM3 CBC Comment DIFF FINAL Differential Comment Blood Urea Nitrogen 25 MG/DL Creatinine 0.69 MG/DL Random Glucose 210 MG/DL Calcium Level 9.9 MG/DL Sodium Level 135 MEQ/L Potassium Level 3.7 MEQ/L Chloride Level 99 MEQ/L Carbon Dioxide Level 26.6 MEQ/L Anion Gap 9 MEQ/L Estimat Glomerular Filtration Rate 83 ML/MIN [facility] Medical Decision Making Medical Screen Exam Complete: Yes Emergency Medical Condition: Yes Medical Record Reviewed: Yes Differential Diagnosis Dehydration, gastroenteritis, narcotic withdrawal Narrative Course I have reviewed the patient's electronic medical record. Gave her a liter of normal saline IV and IV Zofran and IV morphine Labs sent CBC is normal Metabolic profile reveals minimal azotemia consistent with mild dehydration She feels improved on recheck Zofran prescribed Diagnosis Primary Impression: Nausea vomiting and diarrhea Additional Impression: Dehydration, mild Additional Instructions: The patient was advised to follow up with their physician and return if they worsen. I have recommended clear liquids for 24 hours, then gradually advance as tolerated. Med/Other Pt SpecificInfo: Prescription(s) given Scripts Ondansetron Odt (Zofran Odt) 4 Mg Tab 4 MG SL Q6HR Y for Nausea/Vomiting, #12 TAB 0 Refills Prov: Victor Manuel Mccormack MD 02/21/18 Disposition: 01 DISCHARGE HOME Condition: Stable Victor Manuel Mccormack MD Feb 21, 2018 15:29
[2018-02-21 15:57] LABS: AUTOMATED NEUTROPHIL # 7.5 TH/MM3 (1.8-7.7); BASOPHIL % 0.5 % (0.0-2.0); HEMATOCRIT 48.2 % (35.0-46.0); HEMOGLOBIN 16.6 GM/DL (11.6-15.3); LYMPH % 15.4 % (9.0-44.0); LYMPHOCYTE # 1.4 TH/MM3 (1.0-4.8); MEAN CELL VOLUME 90.1 FL (80.0-100.0); MEAN CORPUSCULAR HGB CONC 34.4 % (32.0-36.0); MONO % 4.4 % (0.0-8.0); MONOCYTE # 0.4 TH/MM3 (0-0.9); NEUT % 79.7 % (16.0-70.0); PLATELET COUNT 149 TH/MM3 (150-450); RED BLOOD COUNT 5.35 MIL/MM3 (4.00-5.30); RED CELL DISTRIBUTION WIDTH 11.8 % (11.6-17.2); WHITE BLOOD COUNT 9.3 TH/MM3 (4.0-11.0)
[2018-02-21 16:07] LABS: BICARBONATE 26.6 MEQ/L (21.0-32.0); CALCIUM 9.9 MG/DL (8.5-10.1)
[2018-02-21 16:11] LABS: CREATININE 0.69 MG/DL (0.50-1.00)
[2018-02-21 16:25] VITALS: BP 158/66; PULSE 92; RESP 14; O2SAT 95
[2018-02-21] MEDS ORDERED: ZOFR4TAB3 SL (16:44)
[2018-02-21 17:28] VITALS: BP 168/90; PULSE 98; RESP 16; O2SAT 98
[2018-02-21] MEDS ORDERED: PROMETHAZINE INJ 25 MG/ML VIAL IM ONE (17:30)
[2018-02-21] MEDS ORDERED: LIDOCAINE VISCOUS 2% SOLN 15 ML UDC PO ONE (17:30)
[2018-02-21] MEDS ORDERED: ALUMINUM/MAGNESIUM/SIMETH 30 ML CUP PO ONE (17:30)
== END 2018-02-21 18:22 | disposition home or self-care (01) ==
LOC: PHED 11:08
DX: R11.2 Nausea with vomiting, unspecified (principal); R19.7 Diarrhea, unspecified; E86.0 Dehydration; M06.9 Rheumatoid arthritis, unspecified; F41.9 Anxiety disorder, unspecified; F32.9 Major depressive disorder, single episode, unspecified; I25.10 Atherosclerotic heart disease of native coronary artery without angina pectoris; I11.0 Hypertensive heart disease with heart failure; I50.9 Heart failure, unspecified
CPT/HCPCS: 80048; 85025; 96361; 96372; 96374; 96375; 99284; J2270; J2405; J2550; J7030

== ENCOUNTER 2018-03-12 16:20 | Emergency (ER) | payer MEDICARE ==
[2018-03-12] VITALS (8 sets, daily range): BP systolic 109–145; BP diastolic 56–75; PULSE 80–97; RESP 16–20; TEMP 98.7; O2SAT 96–100
[~2018-03-12 16:20] MED LIST changes: +ZOFR4TAB3 SL
[2018-03-12] MEDS ORDERED: FOLI400T PO (16:38)
[2018-03-12] MEDS ORDERED: FLAR0.1S EACH EYE (16:38)
[2018-03-12] MEDS ORDERED: AMIT24CA9 PO (16:38)
[2018-03-12] MEDS ORDERED: CYAN100025 IM (16:38)
[2018-03-12] MEDS ORDERED: MIRT1TAB PO (16:38)
[2018-03-12] MEDS ORDERED: MORP-43 PO (16:38)
[2018-03-12] MEDS ORDERED: VITA2000 PO (16:38)
[2018-03-12] MEDS ORDERED: PANT40TA3 PO (16:38)
[2018-03-12] MEDS ORDERED: ONDANSETRON HCL 4 MG/2 ML VIAL IV PUSH ONE (16:45)
[2018-03-12] MEDS ORDERED: MORPHINE SULFATE 4 MG/ML INJ IV PUSH ONE (16:45)
[2018-03-12] MEDS ORDERED: SODIUM CHLORIDE 0.9% FLUSH 10 ML FLUSH IVF PRN (16:45)
[2018-03-12] MEDS ORDERED: ASPIRIN 81 MG CHEW TAB PO ONE (16:45)
[2018-03-12] MEDS ORDERED: SODIUM CHLORID 0.9% 500 ML INJ 500 ML IV ONE (16:45)
--- NOTE | 2018-03-12 16:48 | PD ---
HPI Chief Complaint: Chest Pain Time Seen by Provider: 16:24 Travel History International Travel<30 days: No Contact w/Intl Traveler<30days: No Traveled to known affect area: No History of Present Illness HPI The patient is a 78-year-old female who presents to the emergency department for chest pain. The patient was at her physician's office earlier today, Dr. Martin, when she developed left-sided to substernal chest pain. The patient describes the pain as sharp, pleuritic, intermittent, and associated with shortness of breath. The patient does have a history of coronary artery disease with previous stent placement, last stent was placed in 2015 by her nuclear technologist, Dr. Smith. The patient then had a negative nuclear medicine myocardial perfusion scan performed March 2017. The patient does have a history of CAD, hypertension, hyperlipidemia, and previous pulmonary embolism. The patient notes to previous pulmonary embolisms, is not currently anticoagulated. The patient does complain of shortness of breath with her symptoms, denies any fever, chills, sweats, or cough. She does note recent generalized weakness and weight loss. Symptoms are moderate. She denies any nausea, vomiting, or diaphoresis. She does note decreased appetite over the last 3 weeks. PFSH Past Medical History Hx Anticoagulant Therapy: Yes (asa 81mg) Arthritis: Yes (RA) Asthma: Yes Autoimmune Disease: Yes Blood Disorders: No Anxiety: Yes Depression: Yes Heart Rhythm Problems: No Cancer: No Cardiac Catheterization: Yes (Multiple Angioplasty last time X 6 stents-LAST CATH June) Cardiovascular Problems: Yes (CAD, STENTS, LOOP RECORDER) High Cholesterol: Yes Chemotherapy: No Chest Pain: Yes Congestive Heart Failure: Yes COPD: Yes Cerebrovascular Accident: Yes (CVA) Coronary Artery Disease: Yes Diabetes: Yes (INSULIN DEPENDENT) Patient Takes Glucophage: No Diminished Hearing: Yes ([place]) Diverticulitis: Yes Endocrine: No Fibromyalgia: Yes Gastrointestinal Disorders: Yes (GASTROPARESIS) GERD: Yes Glaucoma: No Genitourinary: No Headaches: Yes Hepatitis: No Hiatal Hernia: Yes Hypertension: Yes Immune Disorder: Yes (FIBROMYALGIA\RA) Kidney Stones: No Musculoskeletal: Yes (osteoporosis,fibromyalgia,spinal stenosis) Neurologic: Yes (hemangioma) Psychiatric: No Reproductive: Yes Respiratory: Yes (COPD) Migraines: Yes Myocardial Infarction: No Radiation Therapy: No Renal Failure: No Seizures: No Sickle Cell Disease: No Sleep Apnea: Yes (has a device for night time does not know what it is) Thyroid Disease: Yes Ulcer: No PNEUMOCCOCAL Vaccine (Year): 2007 Menopausal: Yes Past Surgical History Abdominal Surgery: Yes AICD: No Appendectomy: Yes Body Medical Devices: RIGHT SHOULDER SURGERY, NO JOINT REPLACEMENT. HIP REPLACEMENT REMOVED. Cardiac Surgery: Yes (CARDIAC CATH WITH STENTS) Cholecystectomy: Yes Coronary Artery Bypass Graft: No Coronary Stent: Yes (X2) Endocrine Surgery: No Genitourinary Surgery: Yes Gynecologic Surgery: Yes (HYSTERECTOMY) Hysterectomy: Yes Joint Replacement: Yes (RIGHT HIP/RIGHT KNEE) Neurologic Surgery: No Pacemaker: No Tonsillectomy: Yes Other Surgery: Yes (TONSILLECTOMY, APPENDECTOMY, HYSTERECTOMY, ROTATOR CUFF, GALLBLADDER, L HIP) Social History Alcohol Use: No Tobacco Use: No (QUIT 1989) Substance Use: No Allergies-Medications (Allergen,Severity, Reaction): Coded Allergies: Sulfa (Sulfonamide Antibiotics) (Verified Allergy, Severe, RASH, 03/12/18) cephalexin (Verified Allergy, Severe, RASH, 03/12/18) codeine (Verified Allergy, Severe, VOMITING, 03/12/18) escitalopram (Verified Allergy, Severe, 03/12/18) hydroxyzine (Verified Allergy, Severe, THROAT SWELLING, 03/12/18) metronidazole (Verified Allergy, Severe, NAUSEA/VOMITING, 03/12/18) penicillin G (Verified Allergy, Severe, RASH, 03/12/18) pregabalin (Verified Allergy, Severe, CARDIAC ARRYTHMIAS, 03/12/18) sulfamethoxazole (Verified Allergy, Severe, RASH (SULFA), 03/12/18) tetanus toxoid, adsorbed (Verified Allergy, Severe, Rash, 03/12/18) trimethoprim (Verified Allergy, Severe, RASH (SULFA), 03/12/18) metoclopramide (Verified Adverse Reaction, Mild, Headache, 03/12/18) VOMITING Uncoded Allergies: SURGICAL STEEL (Allergy, Severe, 07/28/17) . METALS (Allergy, Unknown, Swelling, 07/28/17) . Reported Meds & Prescriptions Reported Meds & Active Scripts Active Flexeril (Cyclobenzaprine HCl) 5 Mg Tab 5 Mg PO TID Reported Vitamin D3 (Cholecalciferol) 2,000 Unit Cap 2,000 Units PO DAILY Pantoprazole (Pantoprazole Sodium) 40 Mg Tab 40 Mg PO DAILY Morphabond ER 12 HR (Morphine Sulfate) 15 Mg Tab 15 Mg PO Q12H Mirtazapine 7.5 Mg Tab 7.5 Mg PO HS Folic Acid 0.4 Mg Tab 1 Mg PO DAILY Flarex Opth Drops (Fluorometholone Acetate) 0.1% Susp 1 Drop EACH EYE QID B-12 (Cyanocobalamin) 1,000 Mcg Subl 1,000 Mcg IM MONTHLY Amitiza (Lubiprostone) 24 Mcg Cap 24 Mg PO BID Nitro-Dur Patch 24 HR (Nitroglycerin) 0.2 Mg/Hr Patch 0.1 Mg T-DERMAL DAILY Novolog Flexpen Inj (Insulin Aspart) 300 Unit/3 Ml Pen 15 Units SQ TIDAC Tresiba Flextouch Pen Inj (Insulin Degludec Inj) 300 unit/3 ML Pen 60 Units SQ DAILY Ventolin Hfa 18 GM Inh (Albuterol Sulfate) 90 Mcg/Act Aer 2 Puff INH Q4-6H PRN Crestor (Rosuvastatin Calcium) 40 Mg Tab 40 Mg PO DAILY Synthroid (Levothyroxine Sodium) 50 Mcg Tab 50 Mcg PO DAILY Lorazepam 0.5 Mg Tab 0.5 Mg PO HS PRN Furosemide 40 Mg Tab 40 Mg PO BID Calcium 600 with Vitamin D (Calcium Carbonate-Cholecalciferol) 600-400 mg-Unit Tab 1 Tab PO DAILY Aspirin 325 Mg Tab 81 Mg PO DAILY Review of Systems Except as stated in HPI: all other systems reviewed are Neg General / Constitutional: Positive: Weight Loss, No: Fever, Chills HENT: No: Lightheadedness Cardiovascular: Positive: Chest Pain or Discomfort Respiratory: Positive: Shortness of Breath, Pleuritic Pain, No: Cough Gastrointestinal: Positive: Loss of Appetite, No: Nausea, Vomiting, Abdominal Pain Musculoskeletal: Positive: Weakness, No: Edema Neurologic: Positive: Weakness Physical Exam Narrative GENERAL: Awake, alert, pleasant 78-year-old female who appears her stated age and is in no acute respiratory distress. SKIN: Focused skin assessment warm/dry. HEAD: Atraumatic. Normocephalic. EYES: Pupils equal and round. No scleral icterus. No injection or drainage. ENT: No nasal bleeding or discharge. Mucous membranes pink and moist. NECK: Trachea midline. No JVD. CARDIOVASCULAR: Regular rate and rhythm. No murmur appreciated. Heart rate in the 90s. RESPIRATORY: No accessory muscle use. Clear to auscultation. Breath sounds equal bilaterally. GASTROINTESTINAL: Abdomen soft, non-tender, nondistended. No rebound tenderness. MUSCULOSKELETAL: No obvious deformities. No clubbing. No cyanosis. No edema. NEUROLOGICAL: Awake and alert. No obvious cranial nerve deficits. Motor grossly within normal limits. Normal speech. PSYCHIATRIC: Appropriate mood and affect; insight and judgment normal. Data Data Last Documented VS Vital Signs Date Time Temp Pulse Resp B/P (MAP) Pulse Ox O2 Delivery O2 Flow Rate FiO2 03/12/18 19:00 82 16 97 Room Air 03/12/18 18:55 118/66 (83) 03/12/18 17:50 2.00 03/12/18 16:30 98.7 Orders Orders Electrocardiogram (03/12/18 16:42) Ckmb (Isoenzyme) Profile (03/12/18 16:42) Complete Blood Count With Diff (03/12/18 16:42) Comprehensive Metabolic Panel (03/12/18 16:42) Magnesium (Mg) (03/12/18 16:42) Prothrombin Time / Inr (Pt) (03/12/18 16:42) Act Partial Throm Time (Ptt) (03/12/18 16:42) Troponin I (03/12/18 16:42) Chest, Single Ap (03/12/18 16:42) Ecg Monitoring (03/12/18 16:42) Bilateral Bp Monitoring (03/12/18 16:42) Iv Access Insert/Monitor (03/12/18 16:42) Oximetry (03/12/18 16:42) Oxygen Administration (03/12/18 16:42) Aspirin Chew (Aspirin Chew) (03/12/18 16:45) Morphine Inj (Morphine Inj) (03/12/18 16:45) Sodium Chloride 0.9% Flush (Ns Flush) (03/12/18 16:45) Sodium Chlorid 0.9% 500 Ml Inj (Ns 500 M (03/12/18 16:45) Ct Pulmonary Angiogram (03/12/18 16:42) Ondansetron Inj (Zofran Inj) (03/12/18 16:45) Urinalysis - C+S If Indicated (03/12/18 16:48) Iohexol 350 Inj (Omnipaque 350 Inj) (03/12/18 17:41) Troponin I (03/12/18 19:45) Urine Culture (03/12/18 18:15) Ciprofloxacin 400 Mg Premix (Cipro 400 M (03/12/18 18:45) Labs Laboratory Tests Test 03/12/18 16:45 03/12/18 18:15 03/12/18 19:43 White Blood Count 8.1 TH/MM3 Red Blood Count 4.99 MIL/MM3 Hemoglobin 15.4 GM/DL Hematocrit 44.3 % Mean Corpuscular Volume 89.0 FL Mean Corpuscular Hemoglobin 30.9 PG Mean Corpuscular Hemoglobin Concent 34.7 % Red Cell Distribution Width 11.6 % Platelet Count 149 TH/MM3 Mean Platelet Volume 12.1 FL Neutrophils (%) (Auto) 71.5 % Lymphocytes (%) (Auto) 23.0 % Monocytes (%) (Auto) 5.0 % Eosinophils (%) (Auto) 0.2 % Basophils (%) (Auto) 0.3 % Neutrophils # (Auto) 5.8 TH/MM3 Lymphocytes # (Auto) 1.9 TH/MM3 Monocytes # (Auto) 0.4 TH/MM3 Eosinophils # (Auto) 0.0 TH/MM3 Basophils # (Auto) 0.0 TH/MM3 CBC Comment DIFF FINAL Differential Comment Prothrombin Time 10.2 SEC Prothromb Time International Ratio 1.0 RATIO Activated Partial Thromboplast Time 24.2 SEC Blood Urea Nitrogen 17 MG/DL Creatinine 0.69 MG/DL Random Glucose 331 MG/DL Total Protein 7.6 GM/DL Albumin 3.6 GM/DL Calcium Level 9.1 MG/DL Magnesium Level 2.2 MG/DL Alkaline Phosphatase 86 U/L Aspartate Amino Transf (AST/SGOT) 14 U/L Alanine Aminotransferase (ALT/SGPT) 17 U/L Total Bilirubin 0.5 MG/DL Sodium Level 137 MEQ/L Potassium Level 4.2 MEQ/L Chloride Level 101 MEQ/L Carbon Dioxide Level 30.9 MEQ/L Anion Gap 5 MEQ/L Estimat Glomerular Filtration Rate 83 ML/MIN Total Creatine Kinase 28 U/L Troponin I LESS THAN 0.02 NG/ML LESS THAN 0.02 NG/ML Urine Collection Type CLEAN CATCH Urine Color YELLOW Urine Turbidity CLEAR Urine pH 7.0 Urine Specific [place] 1.010 Urine Protein NEG mg/dL Urine Glucose (UA) 1000 OR GREATER mg/dL Urine Ketones TRACE mg/dL Urine Occult Blood NEG Urine Nitrite NEG Urine Bilirubin NEG Urine Urobilinogen 0.2 MG/DL Urine Leukocyte Esterase NEG Urine RBC 0-3 /hpf Urine WBC 9-14 /hpf Urine Squamous Epithelial Cells 0-5 /hpf Urine Bacteria FEW /hpf Microscopic Urinalysis Comment CULTURE INDICATED Urine Collection Time 18:15 [facility] Medical Decision Making Medical Screen Exam Complete: Yes Emergency Medical Condition: Yes Medical Record Reviewed: Yes Interpretation(s) EKG reveals right bundle branch block with a rate of 97. S1Q3T3. No significant changes compared to EKG performed on July 11, 2017. Last Impressions Chest X-Ray 03/12/181641 Signed Impressions: Service Date/Time: Monday, March 12, 2018 17:13 - CONCLUSION: Stable chest. No evidence of acute disease. Reilly Omalley MD CT Angiography 03/12/181641 Signed Impressions: Service Date/Time: Monday, March 12, 2018 17:33 - CONCLUSION: No evidence of pulmonary embolism Reilly Omalley MD Differential Diagnosis Differential diagnosis includes pulmonary embolism, acute coronary syndrome, pericarditis, myocarditis, GERD, esophageal spasm, pleural effusion, pneumonia, pleurisy. Narrative Course IV was established, labs are drawn and sent, and the patient was placed on cardiac telemetry monitoring and continuous pulse oximetry monitoring. EKG was ordered and interpreted. I had a discussion with the patient regarding possible allergies to iodide with headache, patient states she is not allergic to iodide, requested it be removed from her record. Therefore, it was removed from her record. CT pulmonary angiogram was ordered. The patient was administered aspirin, morphine, Zofran, and IV fluids. Chest x-ray was obtained. Troponin and CPK level were sent to lab. The patient's initial troponin was negative. Initial CPKs unremarkable. Chest x-ray unremarkable. CT pulmonary angiogram is negative for PE. UA does reveal UTI, therefore, the patient was administered Cipro 400 mg intravenously. 3 hour troponin level was ordered for 1944. The patient's second troponin was less than 0.02. The patient will be provided a copy of her x-ray results, CT results, and lab results at discharge. She is advised to follow-up with a primary physician and nuclear technologist. Diagnosis Primary Impression: Atypical chest pain Additional Impression: UTI (urinary tract infection) Qualified Codes: N30.00 - Acute cystitis without hematuria Patient Instructions: General Instructions Additional Instructions: Medication as directed. Please provide the patient a copy of her EKG results, chest x-ray results, CT results, and lab results at discharge. Follow-up with your primary physician and nuclear technologist. Return if symptoms worsen or progress. Med/Other Pt SpecificInfo: Prescription(s) given Scripts Ciprofloxacin (Cipro) 500 Mg Tab 500 MG PO BID for Infection for 3 Days, #6 TAB 0 Refills Prov: Kendell Kearns MD 03/12/18 Disposition: 01 DISCHARGE HOME Condition: Stable Kendell Kearns MD Mar 12, 2018 16:48
[2018-03-12 17:00] LABS: AUTOMATED NEUTROPHIL # 5.8 TH/MM3 (1.8-7.7); BASOPHIL % 0.3 % (0.0-2.0); EOSINOPHIL % 0.2 % (0.0-4.0); HEMATOCRIT 44.3 % (35.0-46.0); HEMOGLOBIN 15.4 GM/DL (11.6-15.3); LYMPHOCYTE # 1.9 TH/MM3 (1.0-4.8); MEAN CORPUSCULAR HEMOGLOBIN 30.9 PG (27.0-34.0); MEAN CORPUSCULAR HGB CONC 34.7 % (32.0-36.0); MEAN PLATELET VOLUME 12.1 FL (7.0-11.0); MONOCYTE # 0.4 TH/MM3 (0-0.9); NEUT % 71.5 % (16.0-70.0); PLATELET COUNT 149 TH/MM3 (150-450); RED BLOOD COUNT 4.99 MIL/MM3 (4.00-5.30); RED CELL DISTRIBUTION WIDTH 11.6 % (11.6-17.2); WHITE BLOOD COUNT 8.1 TH/MM3 (4.0-11.0)
[2018-03-12 17:15] LABS: CHLORIDE 101 MEQ/L (98-107); SODIUM (NA) 137 MEQ/L (136-145)
[2018-03-12 17:18] LABS: CALCIUM 9.1 MG/DL (8.5-10.1)
[2018-03-12 17:19] LABS: ALBUMIN 3.6 GM/DL (3.4-5.0); BICARBONATE 30.9 MEQ/L (21.0-32.0); BLOOD UREA NITROGEN 17 MG/DL (7-18); GLUCOSE,RANDOM 331 MG/DL (74-106); MAGNESIUM 2.2 MG/DL (1.5-2.5)
[2018-03-12 17:22] LABS: ALT (GPT) 17 U/L (10-53); AST (GOT) 14 U/L (15-37); CREATININE 0.69 MG/DL (0.50-1.00); GLOMERULAR FILTRATION RATE 83 ML/MIN (>89)
[2018-03-12 17:23] LABS: TOTAL BILIRUBIN ADULT 0.5 MG/DL (0.2-1.0)
[2018-03-12 17:24] LABS: TOTAL PROTEIN 7.6 GM/DL (6.4-8.2)
[2018-03-12 17:25] LABS: ALKALINE PHOSPHATASE 86 U/L (45-117); PROTHROMBIN TIME - PATIENT 10.2 SEC (9.8-11.6)
[2018-03-12 17:27] LABS: TROPONIN I LESS THAN 0.02 NG/ML (0.02-0.05)
[2018-03-12] MEDS ORDERED: IOHEXOL 350 MG/ML 10 ML VIAL (for RAD DIAG) IVCONTRAST ONE (17:41)
--- NOTE | 2018-03-12 17:42 | RADRPT ---
EXAM DATE/TIME: 03/12/2018 17:13 [facility] COMPARISON: CHEST SINGLE AP, November 07, 2017, 13:45. INDICATIONS : Chest pain. MEDICAL HISTORY : Cerebrovascular disease. Gastroesophageal reflux disease. Chronic obstructive pulmonary disease.Diabe jennifer. Congestive heart failure. Hypertension. Asthma. Diverticulitis. SURGICAL HISTORY : Coronary artery stent. Cholecystectomy.Appendectomy.Hysterectomy. ENCOUNTER: Initial ACUITY: 1 day PAIN SCORE: 4/10 LOCATION: Bilateral chest FINDINGS: There is minimal linear parenchymal opacity at the lateral left lung base which is unchanged. Lungs o therwise clear. No pleural effusions suspected. Cardiac contours are stable and satisfactory. CONCLUSION: Stable chest. No evidence of acute disease. Reilly Omalley MD on March 12, 2018 at 17:39 Board Certified Radiologist. This report was verified electronically.
--- NOTE | 2018-03-12 18:08 | RADRPT ---
EXAM DATE/TIME: 03/12/2018 17:33 [facility] COMPARISON: No previous studies available for comparison. INDICATIONS : Sternal chest pain and shortness of breath. IV CONTRAST: 65 cc Omnipaque 350 (iohexol) IV RADIATION DOSE: 13.64 CTDIvol (mGy) MEDICAL HISTORY : Cardiovascular disease. Diabetes mellitus type 2. Chronic obstructive pulmonary disease.Hypertension. Congestive heart failure. Coronary artery disease. PE. DVT. SURGICAL HISTORY : Loop recorder. Coronary stents. ENCOUNTER: Initial ACUITY: 1 day PAIN SCALE: 5/10 LOCATION: chest TECHNIQUE: Volumetric scanning of the chest was performed using a pulmonary embolism protocol MIP images were re constructed. Using automated exposure control and adjustment of the mA and/or kV according to patien t size, radiation dose was kept as low as reasonably achievable to obtain optimal diagnostic quality images. DICOM format image data is available electronically for review and comparison. Follow-up recommendations for detected pulmonary nodules are based at a minimum on nodule size and pa tient risk factors according to Fleischner Society Guidelines. FINDINGS: PULMONARY ARTERIES: No filling defects are seen in the pulmonary arteries through the segmental level. LUNGS: Minimal scarring or atelectasis in the lateral left lung base. PLEURAE: There is no pleural thickening or pleural effusion. MEDIASTINUM: There is good visualization of the great vessels of the middle mediastinum. No evidence of mediastin al or hilar adenopathy/mass. Dense atherosclerotic calcifications, including within the cord areas. MUSCULOSKELETAL: Within normal limits for patient age. MISCELLANEOUS: The visualized upper abdominal organs demonstrate no acute abnormality. CONCLUSION: No evidence of pulmonary embolism Reilly Omalley MD on March 12, 2018 at 18:03 Board Certified Radiologist. This report was verified electronically.
[2018-03-12 18:20] LABS: BILIRUBIN, URINE NEG (NEG); BLOOD, URINE NEG (NEG); GLUCOSE,URINE 1000 OR GREATER mg/dL (NEG); KETONE, URINE TRACE mg/dL (NEG); NITRITE,URINE NEG (NEG); URINE COLOR YELLOW (YELLW/STRAW); URINE LEUKOCYTE ESTERASE NEG (NEG)
[2018-03-12 18:25] LABS: BACTERIA, URINE FEW /hpf; RBC, URINE 0-3 /hpf (0-3); SQUAMOUS EPITHELIAL CELL URINE 0-5 /hpf (0-5)
[2018-03-12] MEDS ORDERED: CIPROFLOXACIN 400 MG PREMIX 200 ML IV ONE (18:45)
[2018-03-12] MEDS ORDERED: CIPR-9 PO (20:26)
--- NOTE | 2018-03-13 13:31 | EKG ---
Date Performed: 03/12/2018 Time Performed: 16:26:57 PTAGE: 78 years EKG: Sinus rhythm RIGHT BUNDLE BRANCH BLOCK ABNORMAL ECG Since the PREVIOUS TRACING , no significant change noted PREVIOUS TRACIN11/07/2017 13.42 DOCTOR: Tree Kennedy Interpretating Date/Time 03/13/2018 13:30:35
== END 2018-03-12 21:10 | disposition home or self-care (01) ==
LOC: PHED 16:20
DX: R07.89 Other chest pain (principal); N39.0 Urinary tract infection, site not specified; I45.10 Unspecified right bundle-branch block; R94.31 Abnormal electrocardiogram [ECG] [EKG]; R53.1 Weakness; R63.4 Abnormal weight loss; I25.10 Atherosclerotic heart disease of native coronary artery without angina pectoris; I10 Essential (primary) hypertension; E78.5 Hyperlipidemia, unspecified
CPT/HCPCS: 71045; 71275; 80053; 81001; 82550; 83735; 84484; 85025; 85610; 85730; 87086; 93005; 96361; 96365; 96375; 99285; J0744; J2270; J2405; J7040; Q9967

== ENCOUNTER 2018-11-05 10:00 | Observation (INO) ==
--- NOTE | 2018-11-05 10:28 | ED ---
HPI General Chief complaint: Respiratory Symptoms Stated complaint: respiratory/cough/leg pain Time Seen by Provider: 11/05/18 10:13 History of Present Illness HPI narrative: The patient was seen and examined in the presence of the nurse. This patient complains of chest pain. Duration is 15 hours. Severity is moderate. It is rather continual. Located in the left upper chest but also on the right side as well. She denies injury. No productive cough or fever or shortness of breath. She has history of CAD and multiple stents. She is noncompliant with aspirin therapy. Last stress testing was 23 months ago. No alleviating factors. No exacerbating factors. Related Data Home Medications Medication Instructions Recorded Confirmed insulin degludec [Tresiba 60 unit SUB-Q HS 07/16/18 11/05/18 FlexTouch U-100] Allergies Allergy/AdvReac Type Severity Reaction Status Date / Time cephalexin Allergy Severe RASH Verified 11/05/18 10:08 codeine Allergy Severe VOMITING Verified 11/05/18 10:08 duloxetine [From Cymbalta] Allergy Severe Numbness Verified 11/05/18 10:08 escitalopram Allergy Severe unknown Verified 11/05/18 10:08 hydroxyzine Allergy Severe THROAT Verified 11/05/18 10:08 SWELLING metronidazole Allergy Severe NAUSEA/VOMI Verified 11/05/18 10:08 TING penicillin G Allergy Severe RASH Verified 11/05/18 10:08 pregabalin Allergy Severe CARDIAC Verified 11/05/18 10:08 ARRYTHMIAS Sulfa (Sulfonamide Allergy Severe RASH Verified 11/05/18 10:08 Antibiotics) sulfamethoxazole Allergy Severe RASH Verified 11/05/18 10:08 (SULFA) tetanus toxoid, adsorbed Allergy Severe Rash Verified 11/05/18 10:08 trimethoprim Allergy Severe RASH Verified 11/05/18 10:08 (SULFA) metoclopramide AdvReac Mild Headache Verified 11/05/18 10:08 SURGICAL STEEL Allergy Severe oozing Uncoded 06/19/18 17:52 from surgical site METALS Allergy Unknown Swelling Uncoded 06/19/18 17:52 Review of Systems ROS: all other systems reviewed are negative [facility] Medical History Medical History History of asthma (Acute) Hx of diabetes mellitus (Acute) Hx of primary hypertension (Acute) Angina pectoris (Acute) Anxiety (Acute) Asthma (Acute) CAD (coronary artery disease) (Acute) COPD (chronic obstructive pulmonary disease) (Acute) CVA (cerebral vascular accident) (Acute) Carpal tunnel syndrome (Acute) Cataracts, bilateral (Acute) DDD (degenerative disc disease) (Acute) Depression with anxiety (Acute) Diverticulosis (Acute) Fatty liver (Acute) GERD (gastroesophageal reflux disease) (Acute) Gastroparesis (Acute) Goiter (Acute) Hemangioma (Acute) History of CHF (congestive heart failure) (Acute) History of blood transfusion (Acute) History of chronic hypertension (Acute) History of diabetes mellitus, type II (Acute) History of fibromyalgia (Acute) History of osteoarthritis (Acute) History of osteoporosis (Acute) History of rectocele (Acute) History of rheumatoid arthritis (Acute) Hyperlipidemia (Acute) Hypothyroidism (Acute) TIFFANI (obstructive sleep apnea) (Acute) Obesity (Acute) Osteopenia (Acute) PTSD (post-traumatic stress disorder) (Acute) Renal calculi (Acute) Right renal mass (Acute) TMJ (temporomandibular joint syndrome) (Acute) Surgical History Surgical History H/O breast surgery (Acute) History of PTCA (Acute) History of angioplasty (Acute) History of appendectomy (Acute) History of cholecystectomy (Acute) History of colonoscopy (Acute) History of coronary artery stent placement (Acute) History of hip surgery (Acute) History of tonsillectomy and adenoidectomy (Acute) S/P radical vaginal hysterectomy (Acute) S/P rotator cuff repair (Acute) Social History Social History Substance History: No History of Abuse Second Hand Smoke Exposure: No Smoking Status: Former smoker Tobacco Type: Cigarettes How Often Do You Have a Drink Containing Alcohol: Never Recent Travel in [facility] within the Last 8 Weeks: No Recent Out of Country Travel within the Last 8 Weeks: No Immunization History Tetanus Immunization: >5 Years Exam Narrative Exam Narrative: GENERAL: Well-nourished, well-developed patient in no apparent distress. SKIN: Focused skin assessment reveals no rash and nodules. Skin is Warm and dry. HEAD: Atraumatic. Normocephalic. EYES: Pupils equal and round. No scleral icterus. No injection or drainage. ENT: No nasal bleeding or discharge. Mucous membranes pink and moist. NECK: Trachea midline. No JVD. CARDIOVASCULAR: Regular rate and rhythm. No murmur appreciated. RESPIRATORY: No accessory muscle use. Clear to auscultation. Breath sounds equal bilaterally. GASTROINTESTINAL: Abdomen soft, non-tender, nondistended. Hepatic and splenic margins not palpable. MUSCULOSKELETAL: No obvious deformities. No clubbing. No cyanosis. No edema. Some chest wall tenderness but not convincing for replicating her complaint pain NEUROLOGICAL: Awake and alert. No obvious cranial nerve deficits. Motor grossly within normal limits. Normal speech. PSYCHIATRIC: Anxious mood and affect; insight and judgment normal. Course Initial Documented Vital Signs Temperature 97.9 F 11/05/18 10:04 Pulse Rate 84 11/05/18 10:04 Respiratory Rate 20 11/05/18 10:04 Blood Pressure 161/72 H 11/05/18 10:04 Pulse Oximetry 97 11/05/18 10:04 Last Documented Vital Signs Temperature 97.9 F 11/05/18 10:04 Pulse Rate 76 11/05/18 10:30 Respiratory Rate 20 11/05/18 10:04 Blood Pressure 149/66 H 11/05/18 10:30 Pulse Oximetry 96 11/05/18 10:30 Medical Decision Making MDM Narrative Medical decision making narrative: 78-year-old female with 15 hours of chest pain. She does have known CAD. I gave her an aspirin. Her EKG shows sinus rhythm without any acute ST elevation. Labs been sent and x-ray ordered. ER workup is negative including cardiac enzymes and chest x-ray. She does have hyperglycemia but it is not that excessive and she will be put in the chest pain center 23-hour observation to rule out cardiac cause of her symptoms. I placed a call to the hospitalist to discuss. Medical Screen Exam Complete: Yes Emergency Medical Condition: Yes Differential Diagnosis Differential Diagnosis: Differential diagnosis includes CA, angina, pericarditis , pleurisy, GERD, anxiety. Medical Records Medical records reviewed: Yes I reviewed the patient's medical records. Lab Data Lab results reviewed: Yes I reviewed the patient's lab results. Lab results narrative: Cardiac enzymes are normal. She has some hyperglycemia Result diagrams: 11/05/18 10:30 11/05/18 10:30 Lab Results 11/05/18 11/05/18 11/05/18 Range/Units 10:30 10:30 10:30 CBC w Diff Auto diff final WBC 5.3 (4.0-11.0) th/mm3 RBC 4.45 (4.00-5.30) mil/mm3 Hgb 13.8 (11.6-15.3) gm/dL Hct 40.4 (35.0-46.0) % MCV 90.8 (80.0-100.0) fL MCH 31.0 (27.0-34.0) pg MCHC 34.2 (32.0-36.0) % RDW 11.9 (11.6-17.2) % Plt Count 107 L (150-450) th/mm3 MPV 11.2 H (7.0-11.0) fL Neut % (Auto) 86.3 H (16.0-70.0) % Lymph % (Auto) 7.4 L (9.0-44.0) % [place] % (Auto) 4.9 (0.0-8.0) % Eos % (Auto) 0.1 (0.0-4.0) % Baso % (Auto) 1.3 (0.0-2.0) % Neut # (Auto) 4.5 (1.8-7.7) th/mm3 Lymph # (Auto) 0.4 L (1.0-4.8) th/mm3 [place] # (Auto) 0.3 (0.0-0.9) th/mm3 Eos # (Auto) 0.0 (0.0-0.4) th/mm3 Baso # (Auto) 0.1 (0.0-0.2) th/mm3 WBC Differential . Differential Comment . PT 10.1 (9.8-11.6) sec INR 1.0 Ratio APTT 25.7 (23.4-31.7) sec Sodium 139 (136-145) meq/L Potassium 4.3 (3.5-5.1) meq/L Chloride 106 (98-107) meq/L Carbon Dioxide 26.0 (21.0-32.0) meq/L Anion Gap 7 (5-15) meq/L BUN 15 (7-18) mg/dL Creatinine 0.66 (0.50-1.00) mg/dL Estimated GFR 87 L (>89) mL/min Random Glucose 264 H (74-106) mg/dL Calcium 7.9 L (8.5-10.1) mg/dL Total Creatine Kinase 77 (26-192) U/L Troponin I Less than 0.02 L (0.02-0.05) ng/mL Imaging Data Attestation: I personally reviewed and interpreted this imaging study as follows : My impression: Chest x-ray is normal Radiologist's impression: Chest X-Ray 11/05/18 10:22 CONCLUSION: No acute cardiopulmonary disease. Discharge Plan Discharge Disposition Patient Disposition: ED Admit(ED Internal Use Only) Discharge Details Diagnosis: Chest pain in adult Physicians Team ED Provider: Victor Manuel Mccormack Primary Care Provider: NON STAFF,PROVIDER Rxs /Orders / Referrals /Forms Prescriptions: No Action insulin degludec [Tresiba FlexTouch U-100] 100 unit/mL (3 mL) Insulin Pen 60 unit SUB-Q HS RF: 0 Discharge Instructions Patient Printed Instructions: Chest Pain (ED) Status ED Status: With Doctor
[2018-11-05 10:37] LABS: Baso # (Auto) 0.1 th/mm3 (0.0-0.2); Baso % (Auto) 1.3 % (0.0-2.0); Eos % (Auto) 0.1 % (0.0-4.0); Hematocrit 40.4 % (35.0-46.0); Hemoglobin 13.8 gm/dL (11.6-15.3); Lymph # (Auto) 0.4 th/mm3 (1.0-4.8); Lymph % (Auto) 7.4 % (9.0-44.0); Mean Corpuscular HGB Conc 34.2 % (32.0-36.0); Mean Corpuscular Volume 90.8 fL (80.0-100.0); Mean Platelet Volume 11.2 fL (7.0-11.0); Mono # (Auto) 0.3 th/mm3 (0.0-0.9); Mono % (Auto) 4.9 % (0.0-8.0); Neut # (Auto) 4.5 th/mm3 (1.8-7.7); Neut % (Auto) 86.3 % (16.0-70.0); Platelet Count 107 th/mm3 (150-450); Red Blood Count 4.45 mil/mm3 (4.00-5.30); Red Cell Distribution Width 11.9 % (11.6-17.2); White Blood Count 5.3 th/mm3 (4.0-11.0)
[2018-11-05 10:49] LABS: Chloride 106 meq/L (98-107); Potassium 4.3 meq/L (3.5-5.1); Sodium 139 meq/L (136-145)
[2018-11-05 10:51] LABS: Calcium 7.9 mg/dL (8.5-10.1)
[2018-11-05 10:52] LABS: Anion Gap 7 meq/L (5-15); Blood Urea Nitrogen 15 mg/dL (7-18); Glucose,Random 264 mg/dL (74-106)
[2018-11-05 10:53] LABS: Activated Partial Thrombo Time 25.7 sec (23.4-31.7); Prothrombin Time 10.1 sec (9.8-11.6)
[2018-11-05 10:55] LABS: Glomerular Filtration Rate 87 mL/min (>89)
--- NOTE | 2018-11-05 10:57 | XR ---
EXAM DATE: 11/05/2018 10:50 AM EST AGE/SEX: 78 years / Female INDICATIONS: Chest pain x 15 hours. CLINICAL DATA: This is the patient's initial encounter. Patient reports that signs and symptoms have been present for 2 days and indicates a pain score of 6/10. MEDICAL/SURGICAL HISTORY: Asthma. Chronic obstructive pulmonary disease. Gastroesophageal ref lux disease. CAD. CVA. Goiter. Congestive heart failure. Diabetic. Hypertension. RA. Hypothyroid. Tonsillectomy. Cardiac cath w/ stent placement. Loop recorder. COMPARISON: [facility], CHEST SINGLE AP, 03/12/2018. . FINDINGS: A single AP view of the chest demonstrates the lungs to be symmetrically aerated without evidence of mass, infiltrate or effusion. The cardiomediastinal contours are unremarkable. Osseous structures a re intact. A loop recorder is projected over the left side of the chest. There are overlying electro cardiogram leads. CONCLUSION: No acute cardiopulmonary disease. Electronically signed by: Edwin Thornton MD 11/05/2018 10:56 AM EST
[2018-11-05 11:01] LABS: Creatine Kinase 77 U/L (26-192)
[2018-11-05] MEDS ORDERED: Acetaminophen 325 MG Tablet PO PRN (12:15)
[2018-11-05] MEDS ORDERED: Dextrose 50% in Water 50 ML Vial IV.PUSH PRN (12:17)
[2018-11-05 13:08] LABS: Chloride 107 meq/L (98-107); Potassium 3.8 meq/L (3.5-5.1); Sodium 141 meq/L (136-145)
[2018-11-05 13:11] LABS: Anion Gap 6 meq/L (5-15); Carbon Dioxide 28.3 meq/L (21.0-32.0); Glucose,Random 225 mg/dL (74-106)
[2018-11-05 13:12] LABS: Blood Urea Nitrogen 15 mg/dL (7-18)
[2018-11-05 13:14] LABS: Alanine Aminotransferase 24 U/L (10-53)
[2018-11-05 13:15] LABS: Aspartate Aminotransferase 29 U/L (15-37); Glomerular Filtration Rate Greater Than 89 mL/min (>89)
[2018-11-05 13:16] LABS: Total Protein 6.1 g/dL (6.4-8.2)
[2018-11-05 13:17] LABS: Alkaline Phosphatase 86 U/L (45-117)
--- NOTE | 2018-11-05 13:31 | ECG ---
Date Performed: 11/05/2018 Time Performed: 10:19:41 PTAGE: 78 years EKG: Sinus rhythm POSSIBLE LEFT ATRIAL ENLARGEMENT RIGHT BUNDLE BRANCH BLOCK ABNORMAL ECG PREVIOUS TRACING : 03/12/2018 16.26 Since the previous tracing, no significant change noted DOCTOR: Yovanny Kevin Interpretating Date/Time 11/05/2018 13:29:39
--- NOTE | 2018-11-05 14:00 | P.HP ---
History of Present Illness Primary Care Physician: PROVIDER NON STAFF Chief Complaint: Chest pain History of Present Illness: This is a 78-year-old female patient with no medical history of CAD with multiple cardiac stent placement, diabetes and hypertension presented to the ED with complaints of chest pain. Patient states that around yesterday afternoon while she was lying in bed she noticed a sharp chest pain located in her right chest under her breast that radiated to her left side, was sharp in nature, was steady and worse with any activity, she did take a couple Advil which did seem to help the pain although the pain continued throughout the afternoon and evening. She does admit to associated nausea and shortness of breath, denies any vomiting or sweating. Patient underwent a cardiac stress test in November 2016 which was reportedly unremarkable patient report, patient follows with Dr. Soria, cardiology, last seen a couple months ago with no changes to her medications. Patient does have a loop recorder inserted and is being monitored by cardiac cardiology. Patient also states that she did injure her right ankle in July, has been following with orthopedic and outpatient physical therapy. Patient does have a history of hypertension diabetes although patient does not take any of her medications anymore except for her insulin. At the time of assessment patient complains of localized pain is able to palpate pain in her right lower breast. Still occasional left-sided chest discomfort. - Diagnosis (1) Chest pain in adult (2) Diabetes Review of Systems All other systems reviewed negative except as stated in HPI [facility] - History History Provided By: Patient - Medical History Medical History: Medical History (Last Reviewed 11/05/18 @ 13:58 by Cindi Collier) History of asthma Hx of diabetes mellitus Hx of primary hypertension Angina pectoris Anxiety Asthma CAD (coronary artery disease) COPD (chronic obstructive pulmonary disease) CVA (cerebral vascular accident) Carpal tunnel syndrome Cataracts, bilateral DDD (degenerative disc disease) Depression with anxiety Diverticulosis Fatty liver GERD (gastroesophageal reflux disease) Gastroparesis Goiter Hemangioma History of CHF (congestive heart failure) History of blood transfusion History of chronic hypertension History of diabetes mellitus, type II History of fibromyalgia History of osteoarthritis History of osteoporosis History of rectocele History of rheumatoid arthritis Hyperlipidemia Hypothyroidism TIFFANI (obstructive sleep apnea) Obesity Osteopenia PTSD (post-traumatic stress disorder) Renal calculi Right renal mass TMJ (temporomandibular joint syndrome) - Surgical History Surgical History: Surgical History (Last Reviewed 11/05/18 @ 13:58 by Cindi Collier) H/O breast surgery History of PTCA History of angioplasty History of appendectomy History of cholecystectomy History of colonoscopy History of coronary artery stent placement History of hip surgery History of tonsillectomy and adenoidectomy S/P radical vaginal hysterectomy S/P rotator cuff repair - Family History Family History: Family History (Last Updated 11/05/18 @ 14:00 by Cindi Collier) Other Family history in first degree relatives is unremarkable - Social History I have reviewed the patient's Social History: Yes - Tobacco History Second Hand Smoke Exposure: No Tobacco Use In Past 30 Days: No Smoking Status: Former smoker Tobacco Type: Cigarettes - Alcohol History How Often Do You Have a Drink Containing Alcohol: Never - Substance Use History Substance History: No History of Abuse - Travel History Recent Travel in the [place] Within the Last 8 Weeks: No Recent Travel Out of the Country Within the Last 8 Weeks: No - Immunization History Tetanus Immunization: >5 Years Medications and Allergies Active Medications: Active Medications Acetaminophen (Tylenol) 650 mg PO Q4H PRN PRN Reason: Temp > 100.4, pain 1-2 Dextrose (D50w Vial) 50 ml IV.PUSH UNSCH PRN PRN Reason: PER HYPOGLYCEMIA PROTOCOL Glucagon (Glucagon Inj) 1 mg OTHER PRN PRN PRN Reason: for Hypoglycemia Protocol Heparin Sodium (Porcine) (Heparin Inj) 5,000 units SQ Q8H JEROMY Insulin Aspart (Novolog Insulin Correctional Sugar Inj) 0 unit SQ Q6HR JEROMY; Protocol Ondansetron HCl (Zofran Inj) 4 mg IV.PUSH Q6H PRN PRN Reason: NAUSEA OR VOMITING Senna/Docusate Sodium (Mary Lou-Colace) 1 tab PO BID JEROMY Sodium Chloride (Ns Flush) 2 ml IV.FLUSH BID JEROMY Sodium Chloride (Ns Flush) 2 ml IV.FLUSH PRN PRN PRN Reason: FLUSH AFTER USING IV ACCESS Allergies Allergy/AdvReac Type Severity Reaction Status Date / Time cephalexin Allergy Severe RASH Verified 11/05/18 10:08 codeine Allergy Severe VOMITING Verified 11/05/18 10:08 duloxetine [From Cymbalta] Allergy Severe Numbness Verified 11/05/18 10:08 escitalopram Allergy Severe unknown Verified 11/05/18 10:08 hydroxyzine Allergy Severe THROAT Verified 11/05/18 10:08 SWELLING metronidazole Allergy Severe NAUSEA/VOMI Verified 11/05/18 10:08 TING penicillin G Allergy Severe RASH Verified 11/05/18 10:08 pregabalin Allergy Severe CARDIAC Verified 11/05/18 10:08 ARRYTHMIAS Sulfa (Sulfonamide Allergy Severe RASH Verified 11/05/18 10:08 Antibiotics) sulfamethoxazole Allergy Severe RASH Verified 11/05/18 10:08 (SULFA) tetanus toxoid, adsorbed Allergy Severe Rash Verified 11/05/18 10:08 trimethoprim Allergy Severe RASH Verified 11/05/18 10:08 (SULFA) metoclopramide AdvReac Mild Headache Verified 11/05/18 10:08 SURGICAL STEEL Allergy Severe oozing Uncoded 06/19/18 17:52 from surgical site METALS Allergy Unknown Swelling Uncoded 06/19/18 17:52 Home Medications Medication Instructions Recorded Confirmed Type insulin degludec [Tresiba 60 unit SUB-Q HS 07/16/18 11/05/18 History FlexTouch U-100] Exam Vital signs: Vital Signs 11/05/18 10:04 11/05/18 10:30 11/05/18 12:54 Temperature 97.9 F Pulse Rate 84 76 81 Respiratory Rate 20 16 Blood Pressure 161/72 H 149/66 H 158/86 H Pulse Oximetry 97 96 99 Intake & Output 11/04/18 11/05/18 11/05/18 18:59 06:59 18:59 Weight 65 kg Narrative: GENERAL: Well-developed, well-nourished patient in [facility]. SKIN: Warm and dry. No rash. HEAD: Normocephalic. Atraumatic. EYES: Pupils equal and round. No scleral icterus. No injection or drainage. ENT: No nasal bleeding or discharge. Mucous membranes pink and moist. NECK: Supple. Trachea midline. CARDIOVASCULAR: Regular rate and rhythm. S1, S2 noted. No murmur appreciated. Reproducible chest discomfort under right breast. RESPIRATORY: No accessory muscle use. Clear to auscultation. Breath sounds equal bilaterally. GASTROINTESTINAL: Abdomen soft, non-tender, nondistended. Normoactive bowel sounds x4. MUSCULOSKELETAL: No obvious deformities. Extremities without clubbing, cyanosis , or edema. NEUROLOGICAL: Awake and alert. No obvious cranial nerve deficits. Motor grossly within normal limits. 5/5 muscle strength in bilateral upper and lower extremities. Normal speech. PSYCHIATRIC: Appropriate mood and affect; insight and judgment normal. Results - Labs CBC & Chem 7: 11/05/18 10:30 11/05/18 12:48 Labs: Laboratory Results - last 24 hr 11/05/1818 11/05/18 10:30 10:30 10:30 CBC w Diff Auto diff final WBC 5.3 RBC 4.45 Hgb 13.8 Hct 40.4 MCV 90.8 MCH 31.0 MCHC 34.2 RDW 11.9 Plt Count 107 L MPV 11.2 H Neut % (Auto) 86.3 H Lymph % (Auto) 7.4 L [place] % (Auto) 4.9 Eos % (Auto) 0.1 Baso % (Auto) 1.3 Neut # (Auto) 4.5 Lymph # (Auto) 0.4 L [place] # (Auto) 0.3 Eos # (Auto) 0.0 Baso # (Auto) 0.1 WBC Differential . Differential Comment . PT 10.1 INR 1.0 APTT 25.7 Sodium 139 Potassium 4.3 Chloride 106 Carbon Dioxide 26.0 Anion Gap 7 BUN 15 Creatinine 0.66 Estimated GFR 87 L POC Glucose Random Glucose 264 H Calcium 7.9 L Total Bilirubin AST ALT Alkaline Phosphatase Total Creatine Kinase 77 Troponin I Less than 0.02 L Total Protein Albumin 11/05/18 11/05/18 11/05/18 12:48 12:48 13:01 CBC w Diff WBC RBC Hgb Hct MCV MCH MCHC RDW Plt Count MPV Neut % (Auto) Lymph % (Auto) [place] % (Auto) Eos % (Auto) Baso % (Auto) Neut # (Auto) Lymph # (Auto) [place] # (Auto) Eos # (Auto) Baso # (Auto) WBC Differential Differential Comment PT INR APTT Sodium 141 Potassium 3.8 Chloride 107 Carbon Dioxide 28.3 Anion Gap 6 BUN 15 Creatinine 0.53 Estimated GFR Greater than 89 POC Glucose 188 H Random Glucose 225 H Calcium 8.0 L Total Bilirubin 0.7 AST 29 ALT 24 Alkaline Phosphatase 86 Total Creatine Kinase Troponin I Less than 0.02 L Total Protein 6.1 L Albumin 3.0 L - Imaging Impressions Chest X-Ray 11/05/18 10:22 CONCLUSION: No acute cardiopulmonary disease. Caprini VTE Risk Assessment Caprini VTE Risk Assessment: Moderate/High Risk (score >= 2) Caprini Risk Assessment Model: Point Value = 1 Point Value = 2 Point Value = 3 Point Value = 5 Age 41-60 Minor surgery BMI > 25 kg/m2 Swollen legs Varicose veins or History of unexplained or recurrent spontaneous Oral contraceptives or hormone replacement Sepsis (< 1 month) Serious lung disease, including pneumonia (< 1 month) Abnormal pulmonary function Acute myocardial infarction Congestive heart failure (< 1 month) History of inflammatory bowel disease Medical patient at bed rest Age 61-74 Arthroscopic surgery Major open surgery (> 45 min) Laparoscopic surgery (> 45 min) Malignancy Confined to bed (> 72 hours) Immobilizing plaster cast Central venous access Age >= 75 History of VTE Family history of VTE Factor V Leiden Prothrombin [id number] Lupus anticoagulant Anticardiolipin antibodies Elevated serum homocysteine Heparin-induced thrombocytopenia Other congenital or acquired thrombophilia Stroke (< 1 month) Elective arthroplasty Hip, pelvis, or leg fracture Acute spinal cord injury (< 1 month) Prophylaxis Regimen: Total Risk Factor Score Risk Level Prophylaxis Regimen 0-1 Low Early ambulation 2 Moderate Order ONE of the following: *Sequential Compression Device (SCD) *Heparin 5000 units SQ BID 3-4 Higher Order ONE of the following medications: *Heparin 5000 units SQ TID *Enoxaparin/Lovenox 40 mg SQ daily (WT < 150 kg, CrCl > 30 mL/min) *Enoxaparin/Lovenox 30 mg SQ daily (WT < 150 kg, CrCl > 10-29 mL/min) *Enoxaparin/Lovenox 30 mg SQ BID (WT < 150 kg, CrCl > 30 mL/min) AND/OR *Sequential Compression Device (SCD) 5 or more Highest Order ONE of the following medications: *Heparin 5000 units SQ TID (Preferred with Epidurals) *Enoxaparin/Lovenox 40 mg SQ daily (WT < 150 kg, CrCl > 30 mL/min) *Enoxaparin/Lovenox 30 mg SQ daily (WT < 150 kg, CrCl > 10-29 mL/min) *Enoxaparin/Lovenox 30 mg SQ BID (WT < 150 kg, CrCl > 30 mL/min) AND *Sequential Compression Device (SCD) Assessment and Plan - Assessment (1) Chest pain in adult Code(s): R07.9 - Chest pain, unspecified Status: Acute Plan: Patient has been admitted to the chest pain center for observation. Serial EKGs and serial troponins were ordered for ruling out ACS purposes. Initial troponin flat. Continue to monitor trend. EKG reviewed showing right bundle branch block, no ST changes to indicate ischemia. Cardiac telemetry continue, monitor for any arrhythmias. Chest x-ray reviewed no acute cardiopulmonary disease noted. CBC and BMP reviewed, essentially unremarkable. Patient underwent cardiac stress test roughly 2 years ago. If ACS ruled out with serial EKGs and serial troponins, patient will likely undergo a cardiac stress test in the a.m. Patient able to have cardiac diet tonight, n.p.o. after midnight. Further hospitalization and treatment plan will depend on nuclear imaging results. Patient is stable at this time and agreeable to plan (2) Diabetes Code(s): E11.9 - Type 2 diabetes mellitus without complications Status: Acute Plan: Accu-Chek before meals at bedtime, scale, cover as needed. DVT prophylaxis: SCDs. Heparin.
[2018-11-05] MEDS ORDERED: Ketorolac Inj 30 MG/ML (IVP) Vial IV.PUSH PRN (15:06)
[2018-11-05] MEDS: Heparin - SQ 10,000 UNITS/ML Vial SQ SCH ×2 (15:38→20:45)
--- NOTE | 2018-11-05 15:54 | ECG ---
Date Performed: 11/05/2018 Time Performed: 12:54:40 PTAGE: 78 years EKG: Baseline artifact present Sinus rhythm WITH SHORT MA INTERVAL RIGHT BUNDLE BRANCH BLOCK ABNORMAL ECG No significant change from prior elect rocardiogram. PREVIOUS TRACING : 11/05/2018 10.19 DOCTOR: Joshua Wakefield Interpretating Date/Time 11/05/2018 15:52:39
[2018-11-05] MEDS: Insulin NovoLOG Aspart Correctional Sugar Inj SQ SCH (17:32)
--- NOTE | 2018-11-05 19:12 | ECG ---
Date Performed: 11/05/2018 Time Performed: 15:45:07 PTAGE: 78 years EKG: Sinus rhythm RIGHT BUNDLE BRANCH BLOCK ABNORMAL ECG No significant change from prior electrocardiogram. PREVIOUS TRACING : 11/05/2018 12.54 DOCTOR: Joshua Wakefield Interpretating Date/Time 11/05/2018 19:10:44
[2018-11-05] MEDS: Senna/Docusate Sodium 8.6/50 MG Tablet PO SCH (20:46)
[2018-11-06] MEDS: Insulin NovoLOG Aspart Correctional Sugar Inj SQ SCH ×3 (00:43→12:08)
[2018-11-06] MEDS: Heparin - SQ 10,000 UNITS/ML Vial SQ SCH (05:43)
[2018-11-06 06:54] LABS: Baso % (Auto) 0.6 % (0.0-2.0); Eos % (Auto) 0.9 % (0.0-4.0); Hematocrit 38.1 % (35.0-46.0); Hemoglobin 12.6 gm/dL (11.6-15.3); Mean Corpuscular Hemoglobin 30.1 pg (27.0-34.0); Mean Platelet Volume 11.7 fL (7.0-11.0); Mono # (Auto) 0.5 th/mm3 (0.0-0.9); Mono % (Auto) 12.5 % (0.0-8.0); Neut # (Auto) 2.3 th/mm3 (1.8-7.7); Platelet Count 87 th/mm3 (150-450); Red Blood Count 4.18 mil/mm3 (4.00-5.30); Red Cell Distribution Width 12.3 % (11.6-17.2); White Blood Count 3.8 th/mm3 (4.0-11.0)
[2018-11-06 07:32] LABS: Platelet Morphology Normal (Normal); RBC Morphology Normal (Normal)
[2018-11-06] MEDS: Senna/Docusate Sodium 8.6/50 MG Tablet PO SCH (08:07)
--- NOTE | 2018-11-06 09:29 | P.PNIM ---
Subjective Interval history: Follow-up chest pain. Patient seen and examined, lying in bed comfortably. Patient still complains of sharp chest pain in the right breast. Toradol ordered. Will assess response. Also complains of headache improved with Tylenol. Will undergo a Lexiscan this morning. Physical Exam Vital signs: Vital Signs 11/05/18 10:04 11/05/18 10:30 11/05/18 12:54 Temperature 97.9 F Pulse Rate 84 76 81 Respiratory Rate 20 16 Blood Pressure 161/72 H 149/66 H 158/86 H Pulse Oximetry 97 96 99 11/05/18 16:00 11/05/18 17:11 11/05/18 20:00 Temperature 98.7 F 98.6 F Pulse Rate 76 73 72 Respiratory Rate 20 20 Blood Pressure 131/68 135/63 Pulse Oximetry 95 93 L 11/06/18 00:00 11/06/18 04:00 11/06/18 08:00 Temperature 97.9 F 97.9 F 97.9 F Pulse Rate 74 75 75 Respiratory Rate 20 20 21 Blood Pressure 157/71 H 143/71 H 141/63 H Pulse Oximetry 96 97 98 11/06/18 08:06 Temperature Pulse Rate Respiratory Rate Blood Pressure Pulse Oximetry 98 Intake & Output 11/05/18 11/06/18 11/06/18 18:59 06:59 18:59 Intake Total 340 / 340 240 / 240 240 / 240 Balance 340 / 340 240 / 240 240 / 240 Weight 63.6 kg 63.4 kg Intake: Oral 340 / 340 240 / 240 240 / 240 Other: # Voids 1 3 Date of Last Bowel Movement 11/04/18 # Bowel Movements 0 Weight On Admission 63.6 kg Narrative: GENERAL: Well-developed, well-nourished patient in [facility]. SKIN: Warm and dry. No rash. HEAD: Normocephalic. Atraumatic. EYES: Pupils equal and round. No scleral icterus. No injection or drainage. ENT: No nasal bleeding or discharge. Mucous membranes pink and moist. NECK: Supple. Trachea midline. CARDIOVASCULAR: Regular rate and rhythm. S1, S2 noted. No murmur appreciated. Reproducible chest discomfort under right breast. RESPIRATORY: No accessory muscle use. Clear to auscultation. Breath sounds equal bilaterally. GASTROINTESTINAL: Abdomen soft, non-tender, nondistended. Normoactive bowel sounds x4. MUSCULOSKELETAL: No obvious deformities. Extremities without clubbing, cyanosis , or edema. NEUROLOGICAL: Awake and alert. No obvious cranial nerve deficits. Motor grossly within normal limits. 5/5 muscle strength in bilateral upper and lower extremities. Normal speech. PSYCHIATRIC: Appropriate mood and affect; insight and judgment normal. Results - Labs CBC & Chem 7: 11/06/18 05:10 11/05/18 12:48 Laboratory Results - last 24 hr 11/05/18 11/05/18 11/05/18 10:30 10:30 10:30 CBC w Diff Auto diff final WBC 5.3 RBC 4.45 Hgb 13.8 Hct 40.4 MCV 90.8 MCH 31.0 MCHC 34.2 RDW 11.9 Plt Count 107 L MPV 11.2 H Neut % (Auto) 86.3 H Lymph % (Auto) 7.4 L [place] % (Auto) 4.9 Eos % (Auto) 0.1 Baso % (Auto) 1.3 Neut # (Auto) 4.5 Lymph # (Auto) 0.4 L [place] # (Auto) 0.3 Eos # (Auto) 0.0 Baso # (Auto) 0.1 WBC Differential . Diff Scan Differential Comment . Platelet Estimate Platelet Morphology RBC Morphology PT 10.1 INR 1.0 APTT 25.7 Sodium 139 Potassium 4.3 Chloride 106 Carbon Dioxide 26.0 Anion Gap 7 BUN 15 Creatinine 0.66 Estimated GFR 87 L POC Glucose Random Glucose 264 H Calcium 7.9 L Total Bilirubin AST ALT Alkaline Phosphatase Total Creatine Kinase 77 Troponin I Less than 0.02 L Total Protein Albumin 11/05/18 11/05/18 11/05/18 12:48 12:48 13:01 CBC w Diff WBC RBC Hgb Hct MCV MCH MCHC RDW Plt Count MPV Neut % (Auto) Lymph % (Auto) [place] % (Auto) Eos % (Auto) Baso % (Auto) Neut # (Auto) Lymph # (Auto) [place] # (Auto) Eos # (Auto) Baso # (Auto) WBC Differential Diff Scan Differential Comment Platelet Estimate Platelet Morphology RBC Morphology PT INR APTT Sodium 141 Potassium 3.8 Chloride 107 Carbon Dioxide 28.3 Anion Gap 6 BUN 15 Creatinine 0.53 Estimated GFR Greater than 89 POC Glucose 188 H Random Glucose 225 H Calcium 8.0 L Total Bilirubin 0.7 AST 29 ALT 24 Alkaline Phosphatase 86 Total Creatine Kinase Troponin I Less than 0.02 L Total Protein 6.1 L Albumin 3.0 L 11/05/18 11/05/18 11/05/18 15:45 16:51 20:50 CBC w Diff WBC RBC Hgb Hct MCV MCH MCHC RDW Plt Count MPV Neut % (Auto) Lymph % (Auto) [place] % (Auto) Eos % (Auto) Baso % (Auto) Neut # (Auto) Lymph # (Auto) [place] # (Auto) Eos # (Auto) Baso # (Auto) WBC Differential Diff Scan Differential Comment Platelet Estimate Platelet Morphology RBC Morphology PT INR APTT Sodium Potassium Chloride Carbon Dioxide Anion Gap BUN Creatinine Estimated GFR POC Glucose 200 H 272 H Random Glucose Calcium Total Bilirubin AST ALT Alkaline Phosphatase Total Creatine Kinase Troponin I Less than 0.02 L Total Protein Albumin 11/06/18 11/06/18 11/06/18 00:39 05:10 05:42 CBC w Diff Slide review pending WBC 3.8 L RBC 4.18 Hgb 12.6 Hct 38.1 MCV 91.0 MCH 30.1 MCHC 33.0 RDW 12.3 Plt Count 87 L MPV 11.7 H Neut % (Auto) 60.0 Lymph % (Auto) 26.0 [place] % (Auto) 12.5 H Eos % (Auto) 0.9 Baso % (Auto) 0.6 Neut # (Auto) 2.3 Lymph # (Auto) 1.0 [place] # (Auto) 0.5 Eos # (Auto) 0.0 Baso # (Auto) 0.0 WBC Differential . Diff Scan Auto diff confirmed Differential Comment . Platelet Estimate Low L Platelet Morphology Normal RBC Morphology Normal PT INR APTT Sodium Potassium Chloride Carbon Dioxide Anion Gap BUN Creatinine Estimated GFR POC Glucose 216 H 142 H Random Glucose Calcium Total Bilirubin AST ALT Alkaline Phosphatase Total Creatine Kinase Troponin I Total Protein Albumin - Imaging Impressions Chest X-Ray 11/05/18 10:22 CONCLUSION: No acute cardiopulmonary disease. Assessment and Plan - Assessment (1) Chest pain in adult Code(s): R07.9 - Chest pain, unspecified Status: Acute Plan: Patient has been admitted to the chest pain center for observation. Serial EKGs and serial troponins were ordered for ruling out ACS purposes. Initial troponin flat. Continue to monitor trend. EKG reviewed showing right bundle branch block, no ST changes to indicate ischemia. Cardiac telemetry continue, monitor for any arrhythmias. Chest x-ray reviewed no acute cardiopulmonary disease noted. CBC and BMP reviewed, essentially unremarkable. Patient underwent cardiac stress test roughly 2 years ago. If ACS ruled out with serial EKGs and serial troponins, patient will likely undergo a cardiac stress test in the a.m. Patient able to have cardiac diet tonight, n.p.o. after midnight. Further hospitalization and treatment plan will depend on nuclear imaging results. Patient is stable at this time and agreeable to plan (2) Diabetes Code(s): E11.9 - Type 2 diabetes mellitus without complications Status: Acute Plan: Accu-Chek before meals at bedtime, scale, cover as needed. DVT prophylaxis: SCDs. Heparin. - Plan This is a 78-year-old female patient: Chest pain, atypical rule out ACS vs musculoskeletal etiology -Patient has been admitted to the chest pain center for observation. -Serial EKGs and serial troponins were ordered for ruling out ACS purposes. Troponin trend flat. -Continue to monitor trend. EKG reviewed showing right bundle branch block, no ST changes to indicate ischemia. -Cardiac telemetry continue, monitor for any arrhythmias. None overnight -Chest x-ray reviewed no acute cardiopulmonary disease noted. -CBC and BMP reviewed, essentially unremarkable. -Patient underwent cardiac stress test roughly 2 years ago. ACS ruled out with serial EKGs and serial troponins, patient will undergo a cardiac stress test today. -N.p.o. after midnight. -Pain control with Toradol. -Further hospitalization and treatment plan will depend on nuclear imaging results. -Patient is stable at this time and agreeable to plan Type 2 DM -Accu-Chek before meals at bedtime, scale, cover as needed. DVT prophylaxis: SCDs. Heparin.
[2018-11-06] MEDS ORDERED: Regadenoson Inj 0.4 MG/5 ML Syringe IV.PUSH ONE (10:25)
--- NOTE | 2018-11-06 11:59 | NM ---
EXAM DATE: 11/06/2018 11:49 AM EST AGE/SEX: 78 years / Female INDICATIONS:Right Bundle Branch Block. Angina Left chest pain radiating to right chest. CLINICAL DATA: This is the patient's subsequent encounter. Patient reports that signs and symptoms h ave been present for 1 day and indicates a pain score of 4/10. MEDICAL/SURGICAL HISTORY: Chronic obstructive pulmonary disease. Diabetes mellitus type II. H ypercholesterolemia. Renal mass. Congestive heart failure. Coronary artery stent. Cholecystectomy. Hysterectomy. Appendectomy. COMPARISON: [facility], MYOCARDIAL PERF PHARM SPECT, 04/06/2017. . DOSE: 8.4 mCi Tc 99m Myoview at rest 25.3 mCi [id number] at stress 0.4 mg Lexiscan STRESS SYMPTOMS: Chest pressure, nausea and headache. EJECTION FRACTION: > 70 % TECHNIQUE: The patient underwent pharmacologic stress with infusion of prescribed dose. Continuous ECG tracing was monitored during stress. Gated SPECT imaging was performed after stress and conventi onal SPECT imaging was performed at rest. The examination was performed on a SPECT/CT scanner, both attenuation and non-corrected datasets were reviewed. FINDINGS: Distribution: The maximum perfused segment at stress is in the anterior wall. Perfusion Study: Small fixed perfusion abnormality in the inferolateral wall the left ventricle. T here are no reversible perfusion abnormalities. Gated Study: There are intact wall motion and wall thickening without hypokinetic or dyskinetic segm ents. The ejection fraction is calculated at > 70%. RISK CATEGORY: Low (<1% Annual Motality Rate) CONCLUSION: 1. Small perfusion defect in the lateral wall of the left ventricle during rest and stress. 2. No evidence of reversible perfusion abnormality. 3. Normal wall motion without evidence of focal hypokinesia 4. Normal ejection fraction. Electronically signed by: Mirza Estrella MD Board Certified Radiologist 11/06/2018 11:58 AM EST
--- NOTE | 2018-11-07 07:44 | TR ---
Date Performed: 11/06/2018 Time Performed: 10:52:30 DOCTOR: Matthew Tolentino DRUG LIST: CLINICAL HISTORY: REASON FOR TEST: Chest pain REASON FOR ENDING: OBSERVATION: CONCLUSION: COMMENTS: Lexiscan stress test was performed under standard four minute protocol. Radionuclide was injected one minute prior to ending the test. No electrocardiographic abormalities were present t o suggest ischemia. Nuclear imaging and interpretation are pending.
== END 2018-11-06 15:36 | disposition home or self-care (01) ==
LOC: PHEDA 10:00 → PHED 10:00 → PH3 14:29
PROVIDERS: ADMIT Hospitalist; ATTEND Hospitalist